=== PATIENT | female | born 1990 | race Caucasian/White ===

== ENCOUNTER 2019-10-31 04:59 | Emergency (ER) | payer BC ==
[2019-10-31] MEDS ORDERED: Sodium Chloride 0.9% 1,000 ML IV ONE (05:27)
--- NOTE | 2019-10-31 05:34 | EDM.PDOC ---
<Mohan Moran - Last Filed: 10/31/19 06:33> ED HPI GENERAL MEDICAL PROBLEM - General Chief Complaint: Abdominal Pain Stated Complaint: LOWER ABD PAIN Time Seen by Provider: 10/31/19 05:23 Source of Information: Reports: Patient History Limitations: Reports: No Limitations - History of Present Illness INITIAL COMMENTS - FREE TEXT/NARRATIVE: This is a 29-year-old female who presents to the emergency room with a chief complaint of right-sided abdominal pain and flank tenderness. Patient states she has had this for 2 days. Patient also complains of nausea vomiting diarrhea Duration: Day(s):, Intermittent Location: Reports: Abdomen Severity: Moderate Improves with: Reports: None Worsens with: Reports: None Context: Reports: Activity Associated Symptoms: Reports: Nausea/Vomiting Lower Abdomen Pain Score (Numeric/FACES): 6 - Related Data Allergies Allergy/AdvReac Type Severity Reaction Status Date / Time barley Allergy Hives Uncoded 10/31/19 05:17 Home Meds: Home Meds Multivitamin [Multivitamins] 1 each PO DAILY 08/23/15 [History] Albuterol Sulfate [Proair Hfa] 8.5 gm IH DAILY PRN 10/05/15 [History] Antiety 10/31/19 [History] Dicyclomine [Bentyl] 20 mg PO Q6H PRN #20 cap 10/31/19 [Rx] Past Medical History - Past Health History Medical/Surgical History: Denies Medical/Surgical History HEENT History: Reports: Impaired Vision Other HEENT History: glasses Respiratory History: Reports: Asthma Other Respiratory History: pneumonia Gastrointestinal History: Reports: Irritable Bowel Syndrome Musculoskeletal History: Reports: Other (See Below) Other Musculoskeletal History: left shoulder injury 2 yrs ago - Infectious Disease History Infectious Disease History: Reports: Measles - Past Surgical History HEENT Surgical History: Reports: Oral Surgery GI Surgical History: Reports: Cholecystectomy Social & Family History - Family History Family Medical History: Noncontributory Cardiac: Reports: Hypertension, PA Respiratory: Reports: Asthma GI: Reports: Other (See Below) Other GI Family History: chrons Neurological: Reports: CVA Psychiatric: Reports: Other (See Below) Other Psychiatric Family History: etoh and drug abuse - Tobacco Use Smoking Status *Q: Never Smoker Second Hand Smoke Exposure: No - Recreational Drug Use Recreational Drug Use: No ED ROS GENERAL - Review of Systems Review Of Systems: Comprehensive ROS is negative, except as noted in HPI. Constitutional: Reports: No Symptoms HEENT: Reports: No Symptoms Respiratory: Reports: No Symptoms Cardiovascular: Reports: No Symptoms Endocrine: Reports: No Symptoms GI/Abdominal: Reports: Abdominal Pain : Reports: Flank Pain Musculoskeletal: Reports: No Symptoms Skin: Reports: No Symptoms Neurological: Reports: No Symptoms Psychiatric: Reports: No Symptoms Hematologic/Lymphatic: Reports: No Symptoms Immunologic: Reports: No Symptoms ED EXAM, GI/ABD - Physical Exam Exam: See Below Text/Narrative:: This is a 29-year-old female who appears younger than stated age presenting to the emergency room with right-sided flank tenderness and some hematuria. Patient states she is also had diarrhea for the past 2 days. Patient denies chills fever, nausea and vomiting. Patient does not believe she is at this time. Labs revealed patient has a negative test and a large amount of blood in her urine. This time pending CT scan of the abdomen and pelvis to rule out a kidney stone. Patient has been hydrated and has been given pain medicine. Exam Limited By: No Limitations General Appearance: Alert, WD/WN, No Apparent Distress Eyes: Bilateral: Normal Appearance Ears: Normal External Exam, Normal Canal, Hearing Grossly Normal, Normal TMs Nose: Normal Inspection, Normal Mucosa, No Blood Throat/Mouth: Normal Inspection, Normal Lips, Normal Teeth, Normal Gums Head: Atraumatic, Normocephalic Neck: Normal Inspection, Supple, Non-Tender, Full Range of Motion Respiratory/Chest: No Respiratory Distress, Lungs Clear, Normal Breath Sounds, No Accessory Muscle Use, Chest Non-Tender Cardiovascular: Normal Peripheral Pulses, Regular Rate, Rhythm, No Edema, No Gallop, No JVD GI/Abdominal Exam: Normal Bowel Sounds, Soft, Non-Tender Rectal (Female) Exam: Deferred Back Exam: Normal Inspection, Full Range of Motion, CVA Tenderness (R) Extremities: Normal Inspection, Normal Range of Motion, Non-Tender, No Pedal Edema, Normal Capillary Refill Neurological: Alert, Oriented, CN II-XII Intact, Normal Cognition, No Motor/ Sensory Deficits Psychiatric: Normal Affect, Normal Mood Skin Exam: Warm, Dry, Intact, Normal Color, No Rash Course - Vital Signs Last Recorded V/S: Last Vital Signs Temp 36.3 C 10/31/19 05:01 Pulse 64 10/31/19 05:01 Resp 16 10/31/19 05:01 BP 110/63 10/31/19 05:01 Pulse Ox 98 10/31/19 05:01 - Orders/Labs/Meds Labs: Laboratory Tests 10/31/19 10/31/19 10/31/19 Range/Units 05:10 05:10 05:20 WBC 7.30 (4.0-11.0) K/uL RBC 5.00 (4.30-5.90) M/uL Hgb 15.6 (12.0-16.0) g/dL Hct 44.9 (36.0-46.0) % MCV 89.8 (80.0-98.0) fL MCH 31.2 (27.0-32.0) pg MCHC 34.7 (31.0-37.0) g/dL RDW Std Deviation 40.6 (28.0-62.0) fl RDW Coeff of Jessi 13 (11.0-15.0) % Plt Count 284 (150-400) K/uL MPV 11.40 (7.40-12.00) fL Neut % (Auto) 60.4 (48.0-80.0) % Lymph % (Auto) 24.1 (16.0-40.0) % [place] % (Auto) 12.7 (0.0-15.0) % Eos % (Auto) 2.3 (0.0-7.0) % Baso % (Auto) 0.5 (0.0-1.5) % Neut # (Auto) 4.4 (1.4-5.7) K/uL Lymph # (Auto) 1.8 (0.6-2.4) K/uL [place] # (Auto) 0.9 H (0.0-0.8) K/uL Eos # (Auto) 0.2 (0.0-0.7) K/uL Baso # (Auto) 0.0 (0.0-0.1) K/uL Nucleated RBC % 0.0 /100WBC Nucleated RBCs # 0 K/uL Sodium (136-145) mmol/L Potassium (3.5-5.1) mmol/L Chloride (98-107) mmol/L Carbon Dioxide (21.0-32.0) mmol/L BUN (7.0-18.0) mg/dL Creatinine (0.6-1.0) mg/dL Est Cr Clr Drug Dosing mL/min Estimated GFR (MDRD) ml/min Glucose (74-106) mg/dL Calcium (8.5-10.1) mg/dL Total Bilirubin (0.2-1.0) mg/dL AST (15-37) IU/L ALT (14-63) IU/L Alkaline Phosphatase (46-116) U/L Total Protein (6.4-8.2) g/dL Albumin (3.4-5.0) g/dL Globulin (2.6-4.0) g/dL Albumin/Globulin Ratio (0.9-1.6) Urine Color YELLOW Urine Appearance CLEAR Urine pH 5.5 (5.0-8.0) Ur Specific Island 1.010 (1.001-1.035) Urine Protein NEGATIVE (NEGATIVE) mg/dL Urine Glucose (UA) NEGATIVE (NEGATIVE) mg/dL Urine Ketones NEGATIVE (NEGATIVE) mg/dL Urine Occult Blood LARGE H (NEGATIVE) Urine Nitrite NEGATIVE (NEGATIVE) Urine Bilirubin NEGATIVE (NEGATIVE) Urine Urobilinogen 0.2 (<2.0) EU/dL Ur Leukocyte Esterase NEGATIVE (NEGATIVE) Urine RBC 0-1 (0-2/HPF) Urine WBC 0-1 (0-5/HPF) Ur Epithelial Cells FEW (NONE-FEW) Urine Bacteria FEW (NEGATIVE) Urine Mucus LIGHT (NONE-MOD) Urine HCG, Qual NEGATIVE (NEGATIVE) 10/31/19 Range/Units 05:20 WBC (4.0-11.0) K/uL RBC (4.30-5.90) M/uL Hgb (12.0-16.0) g/dL Hct (36.0-46.0) % MCV (80.0-98.0) fL MCH (27.0-32.0) pg MCHC (31.0-37.0) g/dL RDW Std Deviation (28.0-62.0) fl RDW Coeff of Jessi (11.0-15.0) % Plt Count (150-400) K/uL MPV (7.40-12.00) fL Neut % (Auto) (48.0-80.0) % Lymph % (Auto) (16.0-40.0) % [place] % (Auto) (0.0-15.0) % Eos % (Auto) (0.0-7.0) % Baso % (Auto) (0.0-1.5) % Neut # (Auto) (1.4-5.7) K/uL Lymph # (Auto) (0.6-2.4) K/uL [place] # (Auto) (0.0-0.8) K/uL Eos # (Auto) (0.0-0.7) K/uL Baso # (Auto) (0.0-0.1) K/uL Nucleated RBC % /100WBC Nucleated RBCs # K/uL Sodium 139 (136-145) mmol/L Potassium 4.6 (3.5-5.1) mmol/L Chloride 104 (98-107) mmol/L Carbon Dioxide 26.0 (21.0-32.0) mmol/L BUN 9 (7.0-18.0) mg/dL Creatinine 0.7 (0.6-1.0) mg/dL Est Cr Clr Drug Dosing 83.64 mL/min Estimated GFR (MDRD) > 60.0 ml/min Glucose 94 (74-106) mg/dL Calcium 8.8 (8.5-10.1) mg/dL Total Bilirubin 0.4 (0.2-1.0) mg/dL AST 26 (15-37) IU/L ALT 22 (14-63) IU/L Alkaline Phosphatase 72 (46-116) U/L Total Protein 8.2 (6.4-8.2) g/dL Albumin 4.3 (3.4-5.0) g/dL Globulin 3.9 (2.6-4.0) g/dL Albumin/Globulin Ratio 1.1 (0.9-1.6) Urine Color Urine Appearance Urine pH (5.0-8.0) Ur Specific Island (1.001-1.035) Urine Protein (NEGATIVE) mg/dL Urine Glucose (UA) (NEGATIVE) mg/dL Urine Ketones (NEGATIVE) mg/dL Urine Occult Blood (NEGATIVE) Urine Nitrite (NEGATIVE) Urine Bilirubin (NEGATIVE) Urine Urobilinogen (<2.0) EU/dL Ur Leukocyte Esterase (NEGATIVE) Urine RBC (0-2/HPF) Urine WBC (0-5/HPF) Ur Epithelial Cells (NONE-FEW) Urine Bacteria (NEGATIVE) Urine Mucus (NONE-MOD) Urine HCG, Qual (NEGATIVE) Meds: Medications Discontinued Medications Generic Name Dose Route Start Last Admin Trade Name Freq PRN Reason Stop Dose Admin Sodium Chloride 1,000 mls @ 1,000 mls/hr 10/31/19 05:27 10/31/19 05:40 Normal Saline IV 10/31/19 06:26 1,000 mls/hr .Bolus ONE Administration Ketorolac Tromethamine 30 mg 10/31/19 06:32 10/31/19 07:09 Toradol IVPUSH 10/31/19 06:33 30 mg ONETIME ONE Administration Departure - Departure Disposition: Home, Self-Care 01 Clinical Impression: Abdominal pain - Discharge Information Prescriptions: Dicyclomine [Bentyl] 20 mg PO Q6H PRN #20 cap PRN Reason: Abdominal Pain Referrals: Adelina Us DO [Primary Care Provider] - Forms: ED Department Discharge Sepsis Event Note - Evaluation Sepsis Screening Result: No Definite Risk - Focused Exam Vital Signs: Vital Signs Temp Pulse Resp BP Pulse Ox 10/31/19 05:01 36.3 C 64 16 110/63 98 Date Exam was Performed: 10/31/19 Time Exam was Performed: 06:33 <Lavelle Jara - Last Filed: 10/31/19 07:52> ED ROS GENERAL - Review of Systems Review Of Systems: See Below ED EXAM, GI/ABD - Physical Exam Exam: See Below Course - Re-Assessments/Exams Free Text/Narrative Re-Assessment/Exam: 10/31/19 07:51 Emergency Medicine Physician Handoff Note Verbal report from Dr. Moran at 7:00 AM, 10/31/2019. Summary: 29-year-old obese female with history of asthma, and? Ureterolithiasis presents for evaluation of right sided abdominal pain, nausea, vomiting, and diarrhea for 2 days. Vitals and completed studies were jointly reviewed, these are notable for: HR 64, RR 16, BP 110/63, T 36.3C, SaO2 90% on room air. 1 L NS and 30 mg Toradol given for initial symptom management. WBC 7.3, HB 15.6, sodium 139, potassium 4.6, AST 26, ALT 22, total bilirubin 0.4, ALP 72. UA - large occult blood, negative nitrate, negative leukocyte esterase, few bacteria. HCG negative. Pending: CT abdomen/pelvis. Anticipated disposition: Evaluation: I independently reviewed the prior provider's chart, nursing and triage note(s) , vitals - and when available - labs, EKGs, and imaging studies. 07:16 - patient resting comfortably, repeat history notable for: 29-year-old obese female with a prior cholecystectomy presents with 2 days of poorly characterized crampy predominantly right-sided abdominal pain waxes and wanes, reoccurred at 3 AM this morning that woke her up with pain causing her to cry she then presented for evaluation in the emergency department. Patient endorsed infrequent nausea over the last few days, denied vomiting, and notes that she has in frequent loose stools c/w her IBS. No fevers, chills, dysuria. Currently menstruating. Abdominal exam without tenderness palpation throughout all quadrants, negative Hope sign, no focal tenderness palpation of McBurneys point. CT abdomen/pelvis: Unremarkable non-contrast CT exam. No evidence of renal or ureteral calculus. No evidence of obstructive hyrodronephrosis or inflammatory stranding about either kidney. Summary: no clear evidence of acute intrabdominal genitourinary process. Imagery is believed to be 2/2 the patients menses given the absence of further urinary symptoms, negative nitrate, negative leukocyte esterase as well as few bacteria. Disposition: discharge with PCP follow-up recommended. RX for Bentyl provided. Work note provided as requested by patient. Impression: abdominal pain. Departure - Departure Time of Disposition: 07:50 Sepsis Event Note - Focused Exam Date Exam was Performed: 10/31/19 Time Exam was Performed: 07:50
[2019-10-31 05:51] LABS: BLOOD UREA NITROGEN,BUN 9 mg/dL (7.0-18.0); CHLORIDE,CL 104 mmol/L (98-107); GLUCOSE RANDOM 94 mg/dL (74-106); POTASSIUM,K 4.6 mmol/L (3.5-5.1); SODIUM,NA 139 mmol/L (136-145)
[2019-10-31] MEDS ORDERED: Ketorolac 30 MG/ML SDV IVPUSH ONE (06:32)
--- NOTE | 2019-10-31 07:42 | CT ---
INDICATION: Right flank pain. Hematuria. TECHNIQUE: A CT volumetric acquisition was performed of the abdomen and pelvis without IV contrast. FINDINGS: The lung bases are clear. The unenhanced liver and spleen demonstrate normal size in uniform density. There is no evidence of inflammation within the pancreas. The gallbladder has been resected. The bile ducts are normal in size. The adrenal glands have normal morphology. The kidneys are symmetric in size and there is no evidence of edema, hydronephrosis or perinephric fluid stranding. The abdominal aorta appears normal. The patient has an anatomic variation with a left-sided IVC. The small intestine and colon appear normal. The uterus and ovaries are normal size. The urinary bladder appears normal. IMPRESSION: Unremarkable noncontrast CT exam. No evidence of renal or ureteral calculus. No evidence of obstructive hydronephrosis or inflammatory stranding about either kidney. Please note that all CT scans at this facility use dose modulation, iterative reconstruction, and/or weight-based dosing when appropriate to reduce radiation dose to as low as reasonably achievable. Dictated by Don Murguia MD @ Oct 31 2019 7:36AM Signed by Dr. Don Murguia @ Oct 31 2019 7:40AM
[2019-10-31 08:23] VITALS: BP 114/69; PULSE 60
== END 2019-10-31 08:10 | disposition home or self-care (01) ==
LOC: MW.ED 04:59
DX: R10.9 Unspecified abdominal pain (principal); I10 Essential (primary) hypertension; I25.2 Old myocardial infarction; J45.909 Unspecified asthma, uncomplicated; Z86.73 Personal history of transient ischemic attack (TIA), and cerebral infarction without residual deficits
CPT/HCPCS: 36415; 74176; 80053; 81001; 81025; 85025; 96361; 96374; 99284; J1885; J7030

== ENCOUNTER 2020-07-09 07:47 | Day surgery (SDC) | payer BC ==
[~2020-07-09 07:47] MED LIST: Lactated Ringers 1,000 ML IV SCH; Lidocaine 2% 5 ML SDV ONE; Midazolam 1 MG/ML 2 ML SDV ONE; Propofol 200 MG/20 ML SDV ONE; fentaNYL 100 MCG/2 ML SDV ONE
--- NOTE | 2020-07-09 08:52 | PCM.PREANE ---
Preanesthetic Assessment - Anesthesia/Transfusion/Family Hx Anesthesia History: Prior Anesthesia Without Reaction Other Type of Anesthesia Reaction Comment: "mother almost during surgery, not sure why" Family History of Anesthesia Reaction: No Transfusion History: No Prior Transfusion(s) Intubation History: Unknown - Review of Systems General: No Symptoms Pulmonary: No Symptoms Cardiovascular: No Symptoms Gastrointestinal: Abdominal Pain, Hematochezia Neurological: No Symptoms Other: Reports: None - Physical Assessment Height: 4 ft 11 in Weight: 69.853 kg ASA Class: 2 Mental Status: Alert & Oriented x3 Airway Class: Mallampati = 2 Dentition: Reports: Normal Dentition Thyro-Mental Finger Breadths: 3 Mouth Opening Finger Breadths: 3 ROM/Head Extension: Full Lungs: Clear to Auscultation, Normal Respiratory Effort Cardiovascular: Regular Rate, Regular Rhythm - Allergies Allergies/Adverse Reactions: Allergies Allergy/AdvReac Type Severity Reaction Status Date / Time animal dander Allergy Hives Verified 07/03/20 08:29 barley Allergy Hives Verified 07/03/20 08:29 - Blood Blood Available: No - Anesthesia Plan Pre-Op Medication Ordered: None - Acknowledgements Anesthesia Type Planned: MAC Pt an Appropriate Candidate for the Planned Anesthesia: Yes Alternatives and Risks of Anesthesia Discussed w Pt/Guardian: Yes Pt/Guardian Understands and Agrees with Anesthesia Plan: Yes PreAnesthesia Questionnaire - Past Health History Medical/Surgical History: Denies Medical/Surgical History HEENT History: Reports: Impaired Vision, Other (See Below) Other HEENT History: glasses, lower dental retainer Cardiovascular History: Reports: None Respiratory History: Reports: Asthma (visited ER 4 times since september due to exacerbation of asthma, received corticosteroids) Gastrointestinal History: Reports: GERD, Irritable Bowel Syndrome Genitourinary History: Reports: None Musculoskeletal History: Reports: Other (See Below) Other Musculoskeletal History: myofascial pain syndrome, left shoulder pain Neurological History: Reports: Other (See Below) Other Neuro History: 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 Psychiatric History: Reports: Anxiety, Depression Endocrine/Metabolic History: Reports: Obesity/BMI 30+ (BMI 31.1) Hematologic History: Reports: None, Other (See Below) (h/o anemia) Immunologic History: Reports: None Oncologic (Cancer) History: Reports: None Dermatologic History: Reports: None - Infectious Disease History Infectious Disease History: Reports: Measles - Past Surgical History Head Surgeries/Procedures: Reports: None HEENT Surgical History: Reports: Oral Surgery Cardiovascular Surgical History: Reports: None Respiratory Surgical History: Reports: None GI Surgical History: Reports: Cholecystectomy Female Surgical History: Reports: None Endocrine Surgical History: Reports: None Neurological Surgical History: Reports: None Musculoskeletal Surgical History: Reports: None Oncologic Surgical History: Reports: None Dermatological Surgical History: Reports: None - SUBSTANCE USE Smoking Status *Q: Never Smoker Recreational Drug Use History: No - HOME MEDS Home Medications: Home Meds Albuterol Sulfate [Proair Hfa] 1 puff INH ASDIRECTED PRN 10/05/15 [History] Budesonide/Formoterol Fumarate [Symbicort 80-4.5 MCG] 1 inhalation INH ASDIRECTED PRN 07/03/20 [History] Diclofenac Sodium 1 applic TOP ASDIRECTED PRN 07/03/20 [History] Gabapentin [Neurontin] 300 mg PO TID 07/03/20 [History] Ipratropium/Albuterol Sulfate [Iprat-Albut 0.5-3(2.5) mg/3 ml] 1 inhalation NEB ASDIRECTED PRN 07/03/20 [History] Lidocaine/Prilocaine [Lidocaine-Prilocaine Cream] 1 applic TOP ASDIRECTED PRN 07/03/20 [History] Magnesium Oxide [Magnesium] 2 tab.chew CHEW DAILY 07/03/20 [History] [place]-3/DHA/Epa/Fish Oil [Fish Oil 1,000 mg Softgel] 1,000 mg PO DAILY 07/03/20 [History] Pnv No.95/Ferrous Fum/Folic AC [ Vitamin Tablet] 1 tab PO DAILY 07/03/20 [History] Vitamin B Complex 1 tab PO DAILY 07/03/20 [History] hydrOXYzine HCL [Hydroxyzine HCl] 25 mg PO QID PRN 07/03/20 [History] - CURRENT (IN HOUSE) MEDS Current Meds: Current Medications Lactated Ringer's (Ringers, Lactated) 1,000 mls @ 125 mls/hr IV ASDIRECTED RISHI Discontinued Medications Fentanyl (Sublimaze) Confirm Administered Dose 100 mcg .ROUTE .STK-MED ONE Stop: 07/09/20 07:13 Lidocaine (Xylocaine-Mpf 2%) Confirm Administered Dose 5 ml .ROUTE .STK-MED ONE Stop: 07/09/20 07:13 Midazolam HCl (Versed 1 Mg/Ml) Confirm Administered Dose 2 mg .ROUTE .STK-MED ONE Stop: 07/09/20 07:13 Propofol (Diprivan 20 Ml) Confirm Administered Dose 400 mg .ROUTE .STK-MED ONE Stop: 07/09/20 07:13
[2020-07-09] MEDS ORDERED: Albuterol/Ipratropium 3.0-0.5 MG/3 ML Neb Soln ONE (08:54)
[2020-07-09] MEDS ORDERED: Albuterol/Ipratropium 3.0-0.5 MG/3 ML Neb Soln NEB ONE (08:55)
[2020-07-09] MEDS ORDERED: Propofol 200 MG/20 ML SDV ONE (09:32)
--- NOTE | 2020-07-09 09:54 | PCM.OPNOTE ---
- General Post-Op/Procedure Note Date of Surgery/Procedure: 07/09/20 Operative Procedure(s): egd w bx. colonoscopy w bx Findings: see [id number] Pre Op Diagnosis: abd pain and black tarry stool Post-Op Diagnosis: Same Anesthesia Technique: Moderate Sedation Primary Surgeon: Rolando Jimenez Pathology: egd bx colon random bx Complications: None Condition: Good
[2020-07-09 10:07] VITALS: BP 97/56
--- NOTE | 2020-07-09 10:13 | PCM.POSTAN ---
POST ANESTHESIA ASSESSMENT - MENTAL STATUS Mental Status: Alert, Oriented - VITAL SIGNS Vital Signs: Last Vital Signs Temp 86 C H 07/09/20 09:45 Pulse 82 07/09/20 10:05 Resp 12 07/09/20 10:05 BP 97/56 L 07/09/20 10:05 Pulse Ox 98 07/09/20 10:05 - RESPIRATORY Respiratory Status: Respiratory Rate WNL, Airway Patent, O2 Saturation Stable - CARDIOVASCULAR CV Status: Pulse Rate WNL, Blood Pressure Stable - GASTROINTESTINAL GI Status: No Symptoms - PAIN Pain Score: 0 - POST OP HYDRATION Hydration Status: Adequate & Stable - OBSERVATIONS Free Text/Narrative:: No anesthesia problems
--- NOTE | 2020-07-09 10:57 | PCM48HPAN ---
Post Anesthesia Note - EVALUATION WITHIN 48HRS OF ANESTHETIC Vital Signs in Normal Range: Yes Patient Participated in Evaluation: Yes Respiratory Function Stable: Yes Airway Patent: Yes Cardiovascular Function Stable: Yes Hydration Status Stable: Yes Pain Control Satisfactory: Yes Nausea and Vomiting Control Satisfactory: Yes Mental Status Recovered: Yes Vital Signs: Last Vital Signs Temp 86 C H 07/09/20 09:45 Pulse 82 07/09/20 10:05 Resp 12 07/09/20 10:05 BP 97/56 L 07/09/20 10:05 Pulse Ox 98 07/09/20 10:05 - COMMENTS/OBSERVATIONS Free Text/Narrative:: No anesthesia problems
--- NOTE | 2020-07-09 12:10 | OR ---
SURGEON: Rolando Jimenez MD DATE OF PROCEDURE: 07/09/2020 PREOPERATIVE DIAGNOSES: Abdominal pain and black tarry stool. PROCEDURES PERFORMED: Esophagogastroduodenoscopy with biopsy and colonoscopy with random biopsy. DESCRIPTION OF PROCEDURE: EGD: The patient was taken to the endoscopy room, and with the SET UP ME[employer]SEM[employer] MACHINE, Diprivan was administered. A well-lubricated EGD scope was gently inserted through the oropharynx, down the esophagus, passing through the gastroesophageal junction, into the stomach. The mucosa was examined upon the passage. Any etiology will be noted. Once in the stomach, we continued to advance to the distal antrum, passed through the pylorus into the second portion of the duodenum. Again, the mucosa was examined for any abnormality and etiology. The scope was then retrieved back to the stomach and then retroflexed to look at the fundus of the stomach. If a biopsy was indicated, we will biopsy the antrum, body, and gastroesophageal junction. The air will be sucked out while the scope is retrieved to reduce the patient's discomfort. The patient tolerated the procedure well. There were no intraoperative complications. Dr. Jimenez was present through the whole procedure. Prior to surgery, a time-out had been called, the patient identified, procedure identified and antibiotic administered. The patient was taken to the endoscopy room. A time out was called, patient identified, and procedure identified. Diprivan was then administrated. Patient went from awake to sleep, hearing doctor talking or door closing is normal. Perineum inspection and digital examination were then performed. A well- lubricated colonoscope was gently inserted through the rectum, advanced past the rectosigmoid junction, the descending colon, splenic flexure, transverse colon, hepatic flexure, ascending colon, arrived to the cecum. Cecum was identified as dictated in the finding. Then the scope was carefully withdrawn while attention was paid to the mucosal surface for any abnormality. Air will be sucked out during the scope withdrawal. At the rectum, retroflexed to examine any rectal diseases, fistula or hemorrhoids. During mucosal examination, abnormality or polyp was noted; picture taken and biopsy performed. Patient tolerated procedure well. There were no intraoperative complications, and Dr. Jimenez was present throughout the whole procedure. FINDINGS: EGD findings: 1. The patient is easily sedated with [employer] MACHINE and Diprivan, the patient is soundly snoring. 2. The patient's oropharynx and proximal esophagus are free of disease, stricture, or inflammation. Distal esophagus at GE junction at 40 shows moderate amount of salmon-colored change, consistent with acid reflux. The stomach rugae are normal in appearance. Antrum looks fine and duodenum looks grossly normal. Retroflexed look at the fundus of stomach, there is no hiatal hernia. Biopsy done at antrum, body, GE junction at 40 and sucked out the gas while scope pulling out. During the whole study, there is no blood, ulcer, food particle, or bile observed. Colonoscopy findings: 1. The patient is easily sedated with SET [employer] MACHINE and Diprivan, the patient is soundly snoring. 2. Bowel prep is excellent with very little liquid stool, no semi-formed stool. 3. Colon is rather straightforward. Cecum indicated by ileocecal fold, one-to- one indentation, appendiceal orifice. ScopeGuide is pointing south. Light emittance is not observed. Mucosa examined upon scope pulling out. The patient does not have diverticulosis, polyp, mass, growth, inflammation, stricture, AV malformation, bleeding, none of those. Random biopsy was done and this patient carries a diagnosis of IBD, inflammatory bowel disease. The patient has mild external hemorrhoids, no internal hemorrhoids. The patient would benefit from repeat colonoscopy on an as- needed basis or clinically indicated otherwise. CHRISTO / SERG /[id number]
[2020-07-09 12:37] VITALS: PULSE 78
== END 2020-07-09 11:25 | disposition home or self-care (01) ==
LOC: MW.SDS 07:47
PROVIDERS: ATTEND Surgery
DX: K58.9 Irritable bowel syndrome, unspecified (principal); K20.9 Esophagitis, unspecified; K64.4 Residual hemorrhoidal skin tags; J45.909 Unspecified asthma, uncomplicated; E66.9 Obesity, unspecified; Z91.018 Allergy to other foods; Z91.09 Other allergy status, other than to drugs and biological substances; Z79.899 Other long term (current) drug therapy; Z90.49 Acquired absence of other specified parts of digestive tract; Z68.31 Body mass index [BMI] 31.0-31.9, adult
CPT/HCPCS: 43239; 45380; 94640; J2001; J2250; J2704; J3010; J7120; J7620-GY

== ENCOUNTER 2020-07-13 15:32 | Emergency (ER) | payer BC ==
[2020-07-13] MEDS ORDERED: Sodium Chloride 0.9% 1,000 ML IV ONE (15:49)
[2020-07-13] MEDS ORDERED: Ketorolac 30 MG/ML SDV IVPUSH ONE (15:56)
[2020-07-13] MEDS ORDERED: Ondansetron 4 MG/2 ML SDV IVPUSH ONE (15:56)
--- NOTE | 2020-07-13 15:56 | EDM.PDOC ---
ED HPI GENERAL MEDICAL PROBLEM - General Chief Complaint: Abdominal Pain Stated Complaint: ABDOMINAL PAIN Time Seen by Provider: 07/13/20 15:40 Source of Information: Reports: Patient History Limitations: Reports: No Limitations - History of Present Illness INITIAL COMMENTS - FREE TEXT/NARRATIVE: HISTORY AND PHYSICAL: History of present illness: Patient is a 30-year-old female who presents to the emergency room with complaints of lower abdominal pain, nausea and vomiting. Patient states she has chronically been having abdominal pain over the past few months but typically h ad been in the right lower quadrant. She had a CT scan of her abdomen last month which was normal and then had been referred for an endoscopy and colonoscopy. The scopes were done earlier this week, gets results on . Today she is concerned as the pain is now on the left lower quadrant and feels like she is dehydrated as she has not been able to keep any food or fluids down. Patient denies any fever, chills, headache, change in vision, syncope or near syncope. Denies any chest pain, back pain, shortness of breath or cough. Denies any abdominal pain, nausea, vomiting, diarrhea, constipation or dysuria. Has not noted any blood in urine or stool. Patient has been eating and drinking appropriately. Review of systems: As per history of present illness and below otherwise all systems reviewed and negative. Past medical history: As per history of present illness and as reviewed below otherwise noncontributory. Surgical history: As per history of present illness and as reviewed below otherwise noncontributory. Social history: See social history for further information Family history: As per history of present illness and as reviewed below otherwise noncontributory. Physical exam: General: Well developed and well nourished 30-year-old female. Alert and orientated x 3. Nontoxic in appearance and in no acute distress. Vital signs are stable and have been reviewed by me. Nursing notes were reviewed. HEENT: Atraumatic, normocephalic, pupils equal and reactive bilaterally, negative for conjunctival pallor or scleral icterus, mucous membranes moist, TMs normal bilaterally, throat clear, neck supple, nontender, trachea midline. No drooling or trismus noted. No meningeal signs. No hot potato voice noted. Lungs: Clear to auscultation, breath sounds equal bilaterally, chest nontender. Normal work of breathing, no accessory muscles used. Heart: S1S2, regular rate and rhythm without overt murmur Abdomen: Soft, nondistended, generalized tenderness in all 4 quadrants. Negative for masses or hepatosplenomegaly. Negative for costovertebral tenderness. Skin: Intact, warm, dry. No lesions or rashes noted. Hematologic: No petechiae or purpra. Mucosa appropriate color and normal nail bed color and refill. Extremities: Atraumatic, moves all extremities per self without difficulty or deficits, negative for cords or calf pain. Neurovascular unremarkable. Neuro: Awake, alert, oriented. Cranial nerves II through XII unremarkable. Cerebellum unremarkable. Motor and sensory unremarkable throughout. Exam nonfocal. Psychiatric: Mood and affect are appropriate. Normal thought process. Answering questions appropriately. Notes: CT shows a small amount of pelvic free fluid. 2.1 cm cystic structure on the right adnexa may be related to a recently ruptured cyst or follicle. No appendicitis. Otherwise unremarkable. Patient does feel improved after the fluids and medications. I have spoken with the patient/caregiver and discussed today's findings, in addition to providing specific details for plan of care. Reassessment at the time of disposition demonstrates that the patient is in no acute distress. The patient has remained stable throughout the entire ED visit and is without objective evidence for acute process requiring urgent intervention or hospitalization. The patient is stable for discharge, counseling was provided as , and we discussed in great detail signs and symptoms that would prompt them to return to the Emergency Department. Medication, follow up and supportive care measures were reviewed and discussed. Voices understanding and is agreeable to plan of care. Denies any further questions or concerns at this time. Diagnostics: CBC, CMP, UA, urine , lipase Therapeutics: IV fluids, Toradol, Zofran Prescription: Zofran Impression: Abdominal Pain Plan: 1. Today your lab work is unremarkable. There is the 2.1 cm cyst on the right which may have ruptured. Just continue to monitor your symptoms this should require no further management unless it continues to be problem some. 2. Alternate Tylenol and ibuprofen as needed for pain management. You can use Zofran as needed for nausea. 3. We encourage you to follow up with your primary care provider and/or recommended specialist in the next few days for re-evaluation and further care/management. If your symptoms should worsen, new symptoms develop or any of the signs and symptoms we discussed should arise please return to the emergency room or call 911 (if needed). Definitive disposition and diagnosis as appropriate pending reevaluation and review of above. Lower abdomen Pain Score (Numeric/FACES): 7 - Related Data Allergies Allergy/AdvReac Type Severity Reaction Status Date / Time animal dander Allergy Hives Verified 07/13/20 15:50 barley Allergy Hives Verified 07/13/20 15:50 Home Meds: Home Meds Albuterol Sulfate [Proair Hfa] 1 puff INH ASDIRECTED PRN 10/05/15 [History] Ipratropium/Albuterol Sulfate [Iprat-Albut 0.5-3(2.5) mg/3 ml] 1 inhalation NEB ASDIRECTED PRN 07/03/20 [History] Ondansetron [Zofran ODT] 4 mg PO Q6H PRN #8 tab.dis 07/13/20 [Rx] Past Medical History - Past Health History Medical/Surgical History: Denies Medical/Surgical History HEENT History: Reports: Impaired Vision, Other (See Below) Other HEENT History: glasses, lower dental retainer Cardiovascular History: Reports: None Respiratory History: Reports: Asthma Gastrointestinal History: Reports: GERD, Irritable Bowel Syndrome Other Gastrointestinal History: EGD and colonscopy Genitourinary History: Reports: None Musculoskeletal History: Reports: Other (See Below) Other Musculoskeletal History: left shoulder pain Neurological History: Reports: Other (See Below) Other Neuro History: 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 Psychiatric History: Reports: Anxiety, Depression Endocrine/Metabolic History: Reports: Obesity/BMI 30+ Hematologic History: Reports: None, Other (See Below) Immunologic History: Reports: None Oncologic (Cancer) History: Reports: None Dermatologic History: Reports: None - Infectious Disease History Infectious Disease History: Reports: Measles - Past Surgical History Head Surgeries/Procedures: Reports: None HEENT Surgical History: Reports: Oral Surgery Cardiovascular Surgical History: Reports: None Respiratory Surgical History: Reports: None GI Surgical History: Reports: Cholecystectomy Female Surgical History: Reports: None Endocrine Surgical History: Reports: None Neurological Surgical History: Reports: None Musculoskeletal Surgical History: Reports: None Oncologic Surgical History: Reports: None Dermatological Surgical History: Reports: None Social & Family History - Family History Family Medical History: Noncontributory Cardiac: Reports: Hypertension, [place] Respiratory: Reports: Asthma GI: Reports: Other (See Below) Other GI Family History: chrons Neurological: Reports: CVA Psychiatric: Reports: Other (See Below) Other Psychiatric Family History: etoh and drug abuse - Caffeine Use Caffeine Use: Reports: None - Recreational Drug Use Recreational Drug Use: No ED ROS GENERAL - Review of Systems Review Of Systems: Comprehensive ROS is negative, except as noted in HPI. ED EXAM, GI/ABD - Physical Exam Exam: See Below (See dictation) Course - Vital Signs Last Recorded V/S: Last Vital Signs Temp 97.5 F 07/13/20 18:53 Pulse 75 07/13/20 18:53 Resp 20 07/13/20 18:53 BP 110/75 07/13/20 18:53 Pulse Ox 96 07/13/20 18:53 - Orders/Labs/Meds Labs: Laboratory Tests 07/13/20 07/13/20 07/13/20 Range/Units 15:48 15:48 15:48 WBC 13.78 H (4.0-11.0) K/uL RBC 4.74 (4.30-5.90) M/uL Hgb 14.8 (12.0-16.0) g/dL Hct 41.4 (36.0-46.0) % MCV 87.3 (80.0-98.0) fL MCH 31.2 (27.0-32.0) pg MCHC 35.7 (31.0-37.0) g/dL RDW Std Deviation 36.4 (28.0-62.0) fl RDW Coeff of Jessi 12 (11.0-15.0) % Plt Count 271 (150-400) K/uL MPV 11.40 (7.40-12.00) fL Neut % (Auto) 68.3 (48.0-80.0) % Lymph % (Auto) 17.6 (16.0-40.0) % [place] % (Auto) 13.2 (0.0-15.0) % Eos % (Auto) 0.7 (0.0-7.0) % Baso % (Auto) 0.2 (0.0-1.5) % Neut # (Auto) 9.4 H (1.4-5.7) K/uL Lymph # (Auto) 2.4 (0.6-2.4) K/uL [place] # (Auto) 1.8 H (0.0-0.8) K/uL Eos # (Auto) 0.1 (0.0-0.7) K/uL Baso # (Auto) 0.0 (0.0-0.1) K/uL Sodium (136-145) mmol/L Potassium (3.5-5.1) mmol/L Chloride (98-107) mmol/L Carbon Dioxide (21.0-32.0) mmol/L BUN (7.0-18.0) mg/dL Creatinine (0.6-1.0) mg/dL Est Cr Clr Drug Dosing mL/min Estimated GFR (MDRD) ml/min Glucose (74-106) mg/dL Calcium (8.5-10.1) mg/dL Total Bilirubin (0.2-1.0) mg/dL AST (15-37) IU/L ALT (14-63) IU/L Alkaline Phosphatase (46-116) U/L Total Protein (6.4-8.2) g/dL Albumin (3.4-5.0) g/dL Globulin (2.6-4.0) g/dL Albumin/Globulin Ratio (0.9-1.6) Lipase (73-393) U/L Urine Color YELLOW Urine Appearance CLEAR Urine pH 5.5 (5.0-8.0) Ur Specific [place] >= 1.030 (1.001-1.035) Urine Protein NEGATIVE (NEGATIVE) mg/dL Urine Glucose (UA) NEGATIVE (NEGATIVE) mg/dL Urine Ketones TRACE H (NEGATIVE) mg/dL Urine Occult Blood NEGATIVE (NEGATIVE) Urine Nitrite NEGATIVE (NEGATIVE) Urine Bilirubin NEGATIVE (NEGATIVE) Urine Urobilinogen 0.2 (<2.0) EU/dL Ur Leukocyte Esterase NEGATIVE (NEGATIVE) Urine HCG, Qual NEGATIVE (NEGATIVE) 07/13/20 Range/Units 15:48 WBC (4.0-11.0) K/uL RBC (4.30-5.90) M/uL Hgb (12.0-16.0) g/dL Hct (36.0-46.0) % MCV (80.0-98.0) fL MCH (27.0-32.0) pg MCHC (31.0-37.0) g/dL RDW Std Deviation (28.0-62.0) fl RDW Coeff of Jessi (11.0-15.0) % Plt Count (150-400) K/uL MPV (7.40-12.00) fL Neut % (Auto) (48.0-80.0) % Lymph % (Auto) (16.0-40.0) % [place] % (Auto) (0.0-15.0) % Eos % (Auto) (0.0-7.0) % Baso % (Auto) (0.0-1.5) % Neut # (Auto) (1.4-5.7) K/uL Lymph # (Auto) (0.6-2.4) K/uL [place] # (Auto) (0.0-0.8) K/uL Eos # (Auto) (0.0-0.7) K/uL Baso # (Auto) (0.0-0.1) K/uL Sodium 138 (136-145) mmol/L Potassium 4.0 (3.5-5.1) mmol/L Chloride 103 (98-107) mmol/L Carbon Dioxide 24.4 (21.0-32.0) mmol/L BUN 11 (7.0-18.0) mg/dL Creatinine 0.8 (0.6-1.0) mg/dL Est Cr Clr Drug Dosing 72.52 mL/min Estimated GFR (MDRD) > 60.0 ml/min Glucose 89 (74-106) mg/dL Calcium 9.1 (8.5-10.1) mg/dL Total Bilirubin 0.7 (0.2-1.0) mg/dL AST 15 (15-37) IU/L ALT 22 (14-63) IU/L Alkaline Phosphatase 65 (46-116) U/L Total Protein 7.7 (6.4-8.2) g/dL Albumin 4.3 (3.4-5.0) g/dL Globulin 3.4 (2.6-4.0) g/dL Albumin/Globulin Ratio 1.3 (0.9-1.6) Lipase 76 (73-393) U/L Urine Color Urine Appearance Urine pH (5.0-8.0) Ur Specific [place] (1.001-1.035) Urine Protein (NEGATIVE) mg/dL Urine Glucose (UA) (NEGATIVE) mg/dL Urine Ketones (NEGATIVE) mg/dL Urine Occult Blood (NEGATIVE) Urine Nitrite (NEGATIVE) Urine Bilirubin (NEGATIVE) Urine Urobilinogen (<2.0) EU/dL Ur Leukocyte Esterase (NEGATIVE) Urine HCG, Qual (NEGATIVE) Meds: Medications Discontinued Medications Generic Name Dose Route Start Last Admin Trade Name Freq PRN Reason Stop Dose Admin Sodium Chloride 1,000 mls @ 999 mls/hr 07/13/20 15:49 07/13/20 15:58 Normal Saline IV 07/13/20 16:49 999 mls/hr STAT ONE Administration Iopamidol 100 ml 07/13/20 17:16 07/13/20 17:16 Isovue Multipack-370 (76%) IVPUSH 07/13/20 17:17 100 ml ONETIME ONE Administration Ketorolac Tromethamine 30 mg 07/13/20 15:56 07/13/20 15:59 Toradol IVPUSH 07/13/20 15:57 30 mg ONETIME ONE Administration Ondansetron HCl 4 mg 07/13/20 15:56 07/13/20 15:59 Zofran IVPUSH 07/13/20 15:57 4 mg ONETIME ONE Administration Departure - Departure Time of Disposition: 18:10 Disposition: Home, Self-Care 01 Clinical Impression: Abdominal pain - Discharge Information Prescriptions: Ondansetron [Zofran ODT] 4 mg PO Q6H PRN #8 tab.dis PRN Reason: Nausea Instructions: Abdominal Pain, Adult, [id number] Referrals: Adelina Us DO [Primary Care Provider] - Forms: ED Department Discharge Additional Instructions: The following information is given to patients seen in the emergency department who are being discharged to home. This information is to outline your options for follow-up care. We provide all patients seen in our emergency department with a follow-up referral. The need for follow-up, as well as the timing and circumstances, are variable depending upon the specifics of your emergency department visit. If you don't have a primary care physician on staff, we will provide you with a referral. We always advise you to contact your personal physician following an emergency department visit to inform them of the circumstance of the visit and for follow-up with them and/or the need for any referrals to a consulting specialist. The emergency department will also refer you to a specialist when appropriate. This referral assures that you have the opportunity for follow-up care with a specialist. All of these measure are taken in an effort to provide you with optimal care, which includes your follow-up. Under all circumstances we always encourage you to contact your private physician who remains a resource for coordinating your care. When calling for follow-up care, please make the office aware that this follow-up is from your recent emergency room visit. If for any reason you are refused follow-up, please contact the [facility] Emergency Department at and asked to speak to the emergency department charge nurse. [facility] [address] [place] [id number] [place] [address] Thank you for choosing the [facility] emergency department in [place] for your medical needs today. It was a pleasure caring for you. Today you were seen in the emergency department for abdominal pain 1. Today your lab work is unremarkable. There is the 2.1 cm cyst on the right which may have ruptured. Just continue to monitor your symptoms this should require no further management unless it continues to be problem some. 2. Alternate Tylenol and ibuprofen as needed for pain management. You can use Zofran as needed for nausea. 3. We encourage you to follow up with your primary care provider and/or recommended specialist in the next few days for re-evaluation and further care/management. If your symptoms should worsen, new symptoms develop or any of the signs and symptoms we discussed should arise please return to the emergency room or call 911 (if needed). Sepsis Event Note (ED) - Evaluation Sepsis Screening Result: No Definite Risk - Focused Exam Vital Signs: Vital Signs Temp Pulse Resp BP Pulse Ox 07/13/20 18:53 97.5 F 75 20 110/75 96 07/13/20 15:43 98.2 F 84 20 117/59 L 97
[2020-07-13 16:17] LABS: BLOOD UREA NITROGEN,BUN 11 mg/dL (7.0-18.0); CARBON DIOXIDE,CO2 24.4 mmol/L (21.0-32.0); CHLORIDE,CL 103 mmol/L (98-107); GLUCOSE RANDOM 89 mg/dL (74-106); LIPASE 76 U/L (73-393); SODIUM,NA 138 mmol/L (136-145)
[2020-07-13] MEDS ORDERED: Iopamidol 755 MG/ML 500 ML Multipack Bottle IVPUSH ONE (17:16)
--- NOTE | 2020-07-13 18:04 | CT ---
INDICATION: Abdominal pain. TECHNIQUE: Intravenous contrast enhanced CT of the abdomen and pelvis. 100 ml of Isovue 370 intravenous contrast administered. Oral contrast was also administered. COMPARISON: 06/13/2020. FINDINGS: Area of low-attenuation within the medial segment of the left hepatic close to the falciform ligament is favored to relate to an area of focal fatty infiltration. Patient is status post cholecystectomy. No biliary ductal dilatation. Spleen is normal. Adrenal glands are normal. No pancreatic mass, ductal dilatation or acute peripancreatic inflammatory changes. Symmetric nephrograms. No renal mass. No hydronephrosis or obstructive urinary calculus. - No small bowel obstruction. No appendicitis. No diverticulitis or definite colitis. - Small amount of pelvic free fluid. 2.1 cm peripherally enhancing cystic structure within the right adnexa may relate to a recently ruptured cyst or follicle. No adenopathy. No abdominal aortic aneurysm. - No acute fractures. - No infiltrate within the lung bases, nor pleural effusion. IMPRESSION: 1. Small amount of pelvic free fluid. 2. 2.1 cm peripherally enhancing cystic structure within the right adnexa may relate to a recently ruptured cyst or follicle. 3. No appendicitis. 4. Area of low-attenuation within the medial segment of the left hepatic lobe favored to relate to focal fatty infiltration. Dictated by Varun Ndiaye MD @ 07/13/2020 6:02:44 PM Please note that all CT scans at this facility use dose modulation, iterative reconstruction, and/or weight-based dosing when appropriate to reduce radiation dose to as low as reasonably achievable. Dictated by: Varun Ndiaye MD @ 07/13/2020 18:02:54 (Electronically Signed)
[2020-07-13 18:56] VITALS: BP 110/75; PULSE 75
== END 2020-07-13 18:53 | disposition home or self-care (01) ==
LOC: MW.ED 15:32
DX: R10.84 Generalized abdominal pain (principal); R11.2 Nausea with vomiting, unspecified; J45.909 Unspecified asthma, uncomplicated; E66.9 Obesity, unspecified; Z91.018 Allergy to other foods; Z68.31 Body mass index [BMI] 31.0-31.9, adult; Z91.09 Other allergy status, other than to drugs and biological substances
CPT/HCPCS: 74177; 80053; 81003; 81025; 83690; 85025; 96374; 96375; 99284; J1885; J2405; J7030; Q9967

== ENCOUNTER 2020-09-27 18:52 | Emergency (ER) | payer BC ==
[2020-09-27] MEDS ORDERED: Albuterol HFA 18 Gm Inhaler INH PRN (19:26)
--- NOTE | 2020-09-27 19:34 | EDM.PDOC ---
ED HPI GENERAL MEDICAL PROBLEM - General Chief Complaint: Respiratory Problem Stated Complaint: COUGHING, ASTHMA Time Seen by Provider: 09/27/20 19:26 - History of Present Illness INITIAL COMMENTS - FREE TEXT/NARRATIVE: History of present illness: [] The patient reports she is short of breath and coughing. She started having symptoms around 15 September. She had a negative Covid test . The cough continued to get worse and she felt dyspnea on exertion. She had another test on 02 September and at that time the test was found to be positive and this was reported to her today. She just got off her menstrual period. She does not think she is . She her albuterol inhaler and DuoNeb inhaler as well as a nebulizer at home and still the cough is persistent and bothering her a great deal. Review of systems: As per history of present illness and below otherwise all systems reviewed and negative. Past medical history: As per history of present illness and as reviewed below otherwise noncontributory. Surgical history: As per history of present illness and as reviewed below otherwise noncontributory. Social history: No reported history of drug or alcohol abuse. Family history: As per history of present illness and as reviewed below otherwise noncontributory. Physical exam: Constitutional - well developed, well-nourished and in no acute distress HEENT - normocephalic, no evidence of trauma - external nose and mouth normal - no mass in neck and no JVD - mucosae moist EYES - full EOM, PERRL, no icterus - no evidence of inflammation, injection, or drainage Respiratory - no respiratory distress, equal bilateral expansion, lungs clear to auscultation and no abnormal lung sounds Cardiovascular - Regular Rhythm with S1 and S2 appreciated and no murmur, gallop or rub. GI - abdomen soft without distension or organomegaly - normal bowel sounds - no guard or rebound Musculoskeletal no gross deformity of long bones or joints - no tenderness, swelling or edema Neurologic - Alert and oriented times four - CN II-XII grossly intact - motor sensory and coordination symmetrically normal Psychiatric - appropriate mood and affect with normal thought content Hematologic - No petechiae or purpura - mucosa appropriate color and sclera not pale - normal nail bed color and refill Integument - no rash or evidence of trauma - normal turgor Diagnostics: [] Therapeutics: [] Impression: [] Plan: [] Definitive disposition and diagnosis as appropriate pending reevaluation and review of above. - Related Data Allergies Allergy/AdvReac Type Severity Reaction Status Date / Time animal dander Allergy Hives Verified 09/27/20 19:15 barley Allergy Hives Verified 09/27/20 19:15 Home Meds: Home Meds Albuterol Sulfate [Proair Hfa] 1 puff INH ASDIRECTED PRN 10/05/15 [History] Ipratropium/Albuterol Sulfate [Iprat-Albut 0.5-3(2.5) mg/3 ml] 1 inhalation NEB ASDIRECTED PRN 07/03/20 [History] Benzonatate [Tessalon Perle] 100 mg PO BID PRN #6 capsule 09/27/20 [Rx] Past Medical History - Past Health History Medical/Surgical History: Denies Medical/Surgical History HEENT History: Reports: Impaired Vision, Other (See Below) Other HEENT History: glasses, lower dental retainer Cardiovascular History: Reports: None Respiratory History: Reports: Asthma Gastrointestinal History: Reports: GERD, Irritable Bowel Syndrome Other Gastrointestinal History: EGD and colonscopy Genitourinary History: Reports: None 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 Musculoskeletal History: Reports: None, Other (See Below) Other Musculoskeletal History: left shoulder pain Neurological History: Reports: Other (See Below) Other Neuro History: 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 Psychiatric History: Reports: Anxiety, Depression Endocrine/Metabolic History: Reports: None, Obesity/BMI 30+ Hematologic History: Reports: None, Other (See Below) Immunologic History: Reports: None Oncologic (Cancer) History: Reports: None Dermatologic History: Reports: None - Infectious Disease History Infectious Disease History: Reports: Measles, Other (See Below) Other Infectious Disease History: COVID - Past Surgical History Head Surgeries/Procedures: Reports: None HEENT Surgical History: Reports: Oral Surgery Cardiovascular Surgical History: Reports: None Respiratory Surgical History: Reports: None GI Surgical History: Reports: Cholecystectomy Female Surgical History: Reports: None Endocrine Surgical History: Reports: None Neurological Surgical History: Reports: None Musculoskeletal Surgical History: Reports: None Oncologic Surgical History: Reports: None Dermatological Surgical History: Reports: None Social & Family History - Family History Family Medical History: No Pertinent Family History Cardiac: Reports: Hypertension, [place] Respiratory: Reports: Asthma GI: Reports: Other (See Below) Other GI Family History: chrons Neurological: Reports: CVA Psychiatric: Reports: Other (See Below) Other Psychiatric Family History: etoh and drug abuse - Caffeine Use Caffeine Use: Reports: None - Recreational Drug Use Recreational Drug Use: No ED ROS GENERAL - Review of Systems Review Of Systems: Comprehensive ROS is negative, except as noted in HPI. ED EXAM, GENERAL - Physical Exam Exam: See Below Free Text/Narrative:: My physical exam is in the HPI Course - Vital Signs Last Recorded V/S: Last Vital Signs Temp 36.2 C 09/27/20 19:09 Pulse 89 09/27/20 19:09 Resp 18 09/27/20 19:09 BP 119/80 09/27/20 19:09 Pulse Ox 97 09/27/20 19:09 The patient improved in the emergency department and was never hypoxic. Dis charged in satisfactory condition. - Orders/Labs/Meds Orders: Active Orders 24 hr Category Date Time Status Communication Order [RC] STAT Care 09/27/20 19:35 Active RT Post Treatment Assessment [RC] Click to Edit Care 09/27/20 19:27 Active RT Pre-Treatment Assessment [RC] Click to Edit Care 09/27/20 19:27 Active Chest 1V Frontal [CR] Stat Exams 09/27/20 19:53 Taken Meds: Medications Discontinued Medications Generic Name Dose Route Start Last Admin Trade Name Freq PRN Reason Stop Dose Admin Albuterol 18 gm 09/27/20 19:26 Ventolin Hfa INH Q2H PRN Shortness of Breath Benzonatate 200 mg 09/27/20 19:35 09/27/20 19:44 Tessalon Perles PO 09/27/20 19:36 200 mg ONETIME ONE Administration Benzonatate 200 mg 09/27/20 20:15 Tessalon Perles PO 09/27/20 20:16 ONETIME ONE Prednisone 60 mg 09/27/20 19:36 09/27/20 19:44 Prednisone PO 09/27/20 19:37 60 mg ONETIME ONE Administration Departure - Departure Time of Disposition: 20:17 Disposition: Home, Self-Care 01 Condition: Good Clinical Impression: Cough, COVID-19 - Discharge Information Prescriptions: Benzonatate [Tessalon Perle] 100 mg PO BID PRN #6 capsule PRN Reason: Cough Instructions: Prevent the Spread of COVID-19 if You Are Sick - CDC, COVID-19 Frequently Asked Questions, COVID-19 Referrals: Aedlina Us DO [Primary Care Provider] - Forms: ED Department Discharge Additional Instructions: [facility] - Primary Care [address] [place] [address] [facility] [address] [place] [id number] The following information is given to patients seen in the emergency department who are being discharged to home. This information is to outline your options for follow-up care. We provide all patients seen in our emergency department with a follow-up referral. The need for follow-up, as well as the timing and circumstances, are variable depending upon the specifics of your emergency department visit. If you don't have a primary care physician on staff, we will provide you with a referral. We always advise you to contact your personal physician following an emergency department visit to inform them of the circumstance of the visit and for follow-up with them and/or the need for any referrals to a consulting specialist. The emergency department will also refer you to a specialist when appropriate. This referral assures that you have the opportunity for follow-up care with a specialist. All of these measure are taken in an effort to provide you with optimal care, which includes your follow-up. Under all circumstances we always encourage you to contact your private physician who remains a resource for coordinating your care. When calling for follow-up care, please make the office aware that this follow-up is from your recent emergency room visit. If for any reason you are refused follow-up, please contact the [facility] Emergency Department at and asked to speak to the emergency department charge nurse. Sepsis Event Note (ED) - Evaluation Sepsis Screening Result: No Definite Risk - Focused Exam Vital Signs: Vital Signs Temp Pulse Resp BP Pulse Ox 09/27/20 19:09 36.2 C 89 18 119/80 97 - My Orders Last 24 Hours: My Active Orders 09/27/20 19:27 RT Post Treatment Assessment [RC] Click to Edit RT Pre-Treatment Assessment [RC] Click to Edit 09/27/20 19:35 Communication Order [RC] STAT 09/27/20 19:53 Chest 1V Frontal [CR] Stat - Assessment/Plan Last 24 Hours: My Active Orders 09/27/20 19:27 RT Post Treatment Assessment [RC] Click to Edit RT Pre-Treatment Assessment [RC] Click to Edit 09/27/20 19:35 Communication Order [RC] STAT 09/27/20 19:53 Chest 1V Frontal [CR] Stat
[2020-09-27] MEDS ORDERED: Benzonatate 100 MG Cap PO ONE ×2 (19:35→20:15)
[2020-09-27] MEDS ORDERED: predniSONE 20 MG Tab PO ONE (19:36)
[2020-09-27 20:27] VITALS: BP 115/70; PULSE 83
--- NOTE | 2020-09-27 20:31 | CR ---
INDICATION: Shortness of breath. History of asthma. TECHNIQUE: Chest 1 view Comparison: 03/28/2015. Findings: Cardiomediastinal silhouette is unremarkable. No focal lung consolidation, pleural effusion or pneumothorax. Bones are unremarkable. Impression: No acute cardiopulmonary abnormality. Dictated by Raymond Starr MD @ Sep 27 2020 8:29PM Signed by Dr. Raymond Starr @ Sep 27 2020 8:31PM
== END 2020-09-27 20:30 | disposition home or self-care (01) ==
LOC: MW.ED 18:52
DX: U07.1 COVID-19 (principal); J45.909 Unspecified asthma, uncomplicated; E66.9 Obesity, unspecified; Z68.30 Body mass index [BMI] 30.0-30.9, adult; Z91.018 Allergy to other foods; Z91.048 Other nonmedicinal substance allergy status
CPT/HCPCS: 71045; 99285; A9270; 99283; J3535-GY

== ENCOUNTER 2021-07-09 14:50 | Emergency (ER) | payer BC, OTHER ==
[2021-07-09] MEDS ORDERED: Sodium Chloride 0.9% 1,000 ML IV ONE (15:03)
[2021-07-09] MEDS ORDERED: Sodium Chloride 0.9% 10 ML Syringe FLUSH PRN (15:03)
[2021-07-09] MEDS ORDERED: Sodium Chloride 0.9% 2.5 ML Syringe FLUSH PRN (15:03)
--- NOTE | 2021-07-09 15:05 | EDM.PDOC ---
ED HPI GENERAL MEDICAL PROBLEM - General Chief Complaint: Neuro Symptoms/Deficits Stated Complaint: PASSED OUT Time Seen by Provider: 07/09/21 14:52 - History of Present Illness INITIAL COMMENTS - FREE TEXT/NARRATIVE: History of present illness: [] Shortly after the patient took her antibiotic early this afternoon the patient felt numbness in the left side of her face and left forehead. The numbness was intermittent but then she got lightheaded and says she passed out but lowered her self slowly to the floor. She was out only briefly according to her. She continues to feel little bit of numbness about the face. Patient is being treated for pneumonia recently diagnosed. She has a Covid test pending that was done at [facility]. Review of systems: As per history of present illness and below otherwise all systems reviewed and negative. Past medical history: As per history of present illness and as reviewed below otherwise noncontributory. Surgical history: As per history of present illness and as reviewed below otherwise noncontributory. Social history: No reported history of drug or alcohol abuse. Family history: As per history of present illness and as reviewed below otherwise noncontributory. Physical exam: Constitutional - well developed, well-nourished and in no acute distress HEENT - normocephalic, no evidence of trauma - external nose and mouth normal - no mass in neck and no JVD - mucosae moist EYES - full EOM, PERRL, no icterus - no evidence of inflammation, injection, or drainage Respiratory - no respiratory distress, equal bilateral expansion, lungs clear to auscultation and no abnormal lung sounds Cardiovascular - Regular Rhythm with S1 and S2 appreciated and no murmur, gallop or rub. GI - abdomen soft without distension or organomegaly - normal bowel sounds - no guard or rebound Musculoskeletal no gross deformity of long bones or joints - no tenderness, swelling or edema Neurologic -my customary brief neurologic exam is normal. Alert and oriented times four - CN II-XII grossly intact - motor sensory and coordination symmetrically normal Psychiatric - appropriate mood and affect with normal thought content Hematologic - No petechiae or purpura - mucosa appropriate color and sclera not pale - normal nail bed color and refill Integument - no rash or evidence of trauma - normal turgor Diagnostics: [] Therapeutics: [] Impression: [] Plan: [] Definitive disposition and diagnosis as appropriate pending reevaluation and review of above. - Related Data Allergies Allergy/AdvReac Type Severity Reaction Status Date / Time animal dander Allergy Hives Verified 07/09/21 14:59 barley Allergy Hives Verified 07/09/21 14:59 Home Meds: Home Meds Albuterol Sulfate [Proair Hfa] 1 puff INH ASDIRECTED PRN 10/05/15 [History] Ipratropium/Albuterol Sulfate [Iprat-Albut 0.5-3(2.5) mg/3 ml] 1 inhalation NEB ASDIRECTED PRN 07/03/20 [History] Benzonatate [Tessalon Perle] 100 mg PO BID PRN #6 capsule 09/27/20 [Rx] predniSONE [Prednisone] 20 mg PO DAILY #15 tablet 09/27/20 [Rx] Past Medical History - Past Health History Medical/Surgical History: Denies Medical/Surgical History HEENT History: Reports: Impaired Vision, Other (See Below) Other HEENT History: glasses, lower dental retainer Cardiovascular History: Reports: None Respiratory History: Reports: Asthma Gastrointestinal History: Reports: GERD, Irritable Bowel Syndrome Other Gastrointestinal History: EGD and colonscopy Genitourinary History: Reports: None 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 Musculoskeletal History: Reports: None, Other (See Below) Other Musculoskeletal History: left shoulder pain Neurological History: Reports: Other (See Below) Other Neuro History: 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 Psychiatric History: Reports: Anxiety, Depression Endocrine/Metabolic History: Reports: None, Obesity/BMI 30+ Hematologic History: Reports: None, Other (See Below) Immunologic History: Reports: None Oncologic (Cancer) History: Reports: None Dermatologic History: Reports: None - Infectious Disease History Infectious Disease History: Reports: Measles, Other (See Below) Other Infectious Disease History: COVID - Past Surgical History Head Surgeries/Procedures: Reports: None HEENT Surgical History: Reports: Oral Surgery Cardiovascular Surgical History: Reports: None Respiratory Surgical History: Reports: None GI Surgical History: Reports: Cholecystectomy Female Surgical History: Reports: None Endocrine Surgical History: Reports: None Neurological Surgical History: Reports: None Musculoskeletal Surgical History: Reports: None Oncologic Surgical History: Reports: None Dermatological Surgical History: Reports: None Social & Family History - Family History Family Medical History: No Pertinent Family History Cardiac: Reports: Hypertension, [place] Respiratory: Reports: Asthma GI: Reports: Other (See Below) Other GI Family History: chrons Neurological: Reports: CVA Psychiatric: Reports: Other (See Below) Other Psychiatric Family History: etoh and drug abuse - Caffeine Use Caffeine Use: Reports: None ED ROS GENERAL - Review of Systems Review Of Systems: Comprehensive ROS is negative, except as noted in HPI. ED EXAM, GENERAL - Physical Exam Exam: See Below Free Text/Narrative:: My physical exam is in the HPI #1 Interpretation EKG Interpretation Comments: EKG done 07/09/2021 at 3:08 PM sinus rhythm with a heart rate 71 NM interval 121 QT duration 421 [place] RSR prime on the QRS in V1 and V2 and borderline T abnormalities in the anterior leads. No prior for comparison. Impression no acute injury Course - Vital Signs Last Recorded V/S: Last Vital Signs Temp 36.5 C 07/09/21 15:00 Pulse 79 07/09/21 15:00 Resp 18 07/09/21 15:00 BP 123/66 07/09/21 15:00 Pulse Ox 97 07/09/21 15:00 - Orders/Labs/Meds Orders: Active Orders 24 hr Category Date Time Status Sodium Chloride 0.9% [Saline Flush] Med 07/09/21 15:03 Active 10 ml FLUSH ASDIRECTED PRN Sodium Chloride 0.9% [Saline Flush] Med 07/09/21 15:03 Active 2.5 ml FLUSH ASDIRECTED PRN Saline Lock Insert [OM.PC] Stat Oth 07/09/21 15:03 Ordered Medication Orders Sodium Chloride (Sodium Chloride 0.9% 10 Ml Syringe) 10 ml FLUSH ASDIRECTED PRN PRN Reason: Keep Vein Open Last Admin: 07/09/21 15:22 Dose: 10 ml Documented by: BALTAZAR Sodium Chloride (Sodium Chloride 0.9% 2.5 Ml Syringe) 2.5 ml FLUSH ASDIRECTED PRN PRN Reason: Keep Vein Open Last Admin: 07/09/21 15: Dose: 2.5 ml Documented by: BALTAZAR Labs: Laboratory Tests 07/09/21 07/09/21 Range/Units 15:05 15:05 WBC 14.85 H (4.0-11.0) K/uL RBC 4.90 (4.30-5.90) M/uL Hgb 15.4 (12.0-16.0) g/dL Hct 43.1 (36.0-46.0) % MCV 88.0 (80.0-98.0) fL MCH 31.4 (27.0-32.0) pg MCHC 35.7 (31.0-37.0) g/dL RDW Std Deviation 39.5 (28.0-62.0) fl RDW Coeff of Jessi 12 (11.0-15.0) % Plt Count 315 (150-400) K/uL MPV 10.80 (7.40-12.00) fL Neut % (Auto) 76.8 (48.0-80.0) % Lymph % (Auto) 14.0 L (16.0-40.0) % [place] % (Auto) 8.7 (0.0-15.0) % Eos % (Auto) 0.4 (0.0-7.0) % Baso % (Auto) 0.1 (0.0-1.5) % Neut # (Auto) 11.4 H (1.4-5.7) K/uL Lymph # (Auto) 2.1 (0.6-2.4) K/uL [place] # (Auto) 1.3 H (0.0-0.8) K/uL Eos # (Auto) 0.1 (0.0-0.7) K/uL Baso # (Auto) 0.0 (0.0-0.1) K/uL Nucleated RBC % 0.0 /100WBC Nucleated RBCs # 0 K/uL Sodium 135 L (136-145) mmol/L Potassium 4.0 (3.5-5.1) mmol/L Chloride 101 (98-107) mmol/L Carbon Dioxide 27.4 (21.0-32.0) mmol/L BUN 9 (7.0-18.0) mg/dL Creatinine 0.8 (0.6-1.0) mg/dL Est Cr Clr Drug Dosing 71.84 mL/min Estimated GFR (MDRD) > 60.0 ml/min Glucose 83 (74-106) mg/dL Calcium 8.8 (8.5-10.1) mg/dL Magnesium 2.1 (1.8-2.4) mg/dL Total Bilirubin 0.5 (0.2-1.0) mg/dL AST 15 (15-37) IU/L ALT 33 (14-63) IU/L Alkaline Phosphatase 69 (46-116) U/L Total Protein 8.0 (6.4-8.2) g/dL Albumin 4.3 (3.4-5.0) g/dL Globulin 3.7 (2.6-4.0) g/dL Albumin/Globulin Ratio 1.2 (0.9-1.6) Meds: Medications Generic Name Dose Route Start Last Admin Trade Name Freq PRN Reason Stop Dose Admin Sodium Chloride 10 ml 07/09/21 15:03 07/09/21 15:22 Sodium Chloride 0.9% 10 Ml Syringe FLUSH 10 ml ASDIRECTED PRN Administration Keep Vein Open Sodium Chloride 2.5 ml 07/09/21 15:03 07/09/21 15:21 Sodium Chloride 0.9% 2.5 Ml Syringe FLUSH 2.5 ml ASDIRECTED PRN Administration Keep Vein Open Discontinued Medications Generic Name Dose Route Start Last Admin Trade Name Freq PRN Reason Stop Dose Admin Sodium Chloride 1,000 mls @ 1,000 mls/hr 07/09/21 15:03 07/09/21 15:20 Normal Saline IV 07/09/21 16:02 1,000 mls/hr .Bolus ONE Administration Departure - Departure Time of Disposition: 16:20 Disposition: Home, Self-Care 01 Condition: Good Clinical Impression: Syncope, Facial paresthesia, Impacted cerumen - Discharge Information Instructions: Paresthesia, Earwax Buildup, Adult, Syncope, [id number] Referrals: Adelina Us DO [Primary Care Provider] - Forms: ED Department Discharge Additional Instructions: Make an appointment with Dr. Us. Wear the patch for 2 weeks and then have him follow-up. For earwax put peroxide in the ear canal and sit with that side up until the sizzling bubbling stops or slows down. Then irrigate gently with a bulb syringe. This is the type syringe used to suction the baby's nose. The bulb syringe irrigation has to be done with water the same temperature as her skin or will make you dizzy and possibly nauseated [facility] - Primary Care [address] [place] [address] [id number] [address] [address] The following information is given to patients seen in the emergency department who are being discharged to home. This information is to outline your options for follow-up care. We provide all patients seen in our emergency department with a follow-up referral. The need for follow-up, as well as the timing and circumstances, are variable depending upon the specifics of your emergency department visit. If you don't have a primary care physician on staff, we will provide you with a referral. We always advise you to contact your personal physician following an emergency department visit to inform them of the circumstance of the visit and for follow-up with them and/or the need for any referrals to a consulting specialist. The emergency department will also refer you to a specialist when appropriate. This referral assures that you have the opportunity for follow-up care with a specialist. All of these measure are taken in an effort to provide you with optimal care, which includes your follow-up. Under all circumstances we always encourage you to contact your private physician who remains a resource for coordinating your care. When calling for follow-up care, please make the office aware that this follow-up is from your recent emergency room visit. If for any reason you are refused follow-up, please contact the [facility] Emergency Department at and asked to speak to the emergency department charge nurse. Sepsis Event Note (ED) - Focused Exam Vital Signs: Vital Signs Temp Pulse Resp BP Pulse Ox 07/09/21 15:00 36.5 C 79 18 123/66 97 - My Orders Last 24 Hours: My Active Orders 07/09/21 15:03 Sodium Chloride 0.9% [Saline Flush] 10 ml FLUSH ASDIRECTED PRN Sodium Chloride 0.9% [Saline Flush] 2.5 ml FLUSH ASDIRECTED PRN Saline Lock Insert [OM.PC] Stat - Assessment/Plan Last 24 Hours: My Active Orders 07/09/21 15:03 Sodium Chloride 0.9% [Saline Flush] 10 ml FLUSH ASDIRECTED PRN Sodium Chloride 0.9% [Saline Flush] 2.5 ml FLUSH ASDIRECTED PRN Saline Lock Insert [OM.PC] Stat
[2021-07-09 16:05] LABS: BLOOD UREA NITROGEN,BUN 9 mg/dL (7.0-18.0); CARBON DIOXIDE,CO2 27.4 mmol/L (21.0-32.0); CHLORIDE,CL 101 mmol/L (98-107); GLUCOSE RANDOM 83 mg/dL (74-106); SODIUM,NA 135 mmol/L (136-145)
[2021-07-09 17:34] VITALS: BP 121/70; PULSE 82
== END 2021-07-09 16:30 | disposition home or self-care (01) ==
LOC: MW.ED 14:50
DX: R55 Syncope and collapse (principal); R20.2 Paresthesia of skin; H61.20 Impacted cerumen, unspecified ear; J45.909 Unspecified asthma, uncomplicated; E66.9 Obesity, unspecified; Z68.32 Body mass index [BMI] 32.0-32.9, adult; Z91.018 Allergy to other foods; Z91.048 Other nonmedicinal substance allergy status; Z79.899 Other long term (current) drug therapy
CPT/HCPCS: 36415; 80053; 83735; 85025; 93005; 99284; J7030

== ENCOUNTER 2021-08-12 16:19 | Inpatient (IN) | payer OTHER ==
[2021-08-12] MEDS ORDERED: Sodium Chloride 0.9% 2.5 ML Syringe FLUSH PRN (16:22)
[2021-08-12] MEDS ORDERED: Sodium Chloride 0.9% 10 ML Syringe FLUSH PRN (16:22)
--- NOTE | 2021-08-12 16:27 | EDM.PDOC ---
<hCase Mac - Last Filed: 08/12/21 22:35> ED HPI GENERAL MEDICAL PROBLEM - General Chief Complaint: Abdominal Pain Stated Complaint: severe abdominal pain Time Seen by Provider: 08/12/21 16:20 - Related Data Allergies Allergy/AdvReac Type Severity Reaction Status Date / Time animal dander Allergy Hives Verified 08/12/21 16:28 barley Allergy Hives Verified 08/12/21 16:28 Home Meds: Home Meds Albuterol Sulfate [Proair Hfa] 1 puff INH ASDIRECTED PRN 10/05/15 [History] Ipratropium/Albuterol Sulfate [Iprat-Albut 0.5-3(2.5) mg/3 ml] 1 inhalation NEB ASDIRECTED PRN 07/03/20 [History] ED ROS GENERAL - Review of Systems Review Of Systems: See Below ED EXAM, GI/ABD - Physical Exam Exam: See Below Course - Re-Assessments/Exams Free Text/Narrative Re-Assessment/Exam: 08/12/21 22:35 Patient was hypotensive and try to be discharged he was given a liter of fluids. My nurse practitioner called RN CLINICAL [facility]OURCE who did not assess the patient as it is a medical issue. We spoke to the hospitalist who has some concerns as they thought this is a RN CLINICAL RESOURCE issue at the going back and forth hospitalist will admit patient for observation due to the symptomatic hypotension. Again patient hemoglobin is stable she does have elevated white count but no signs of fever or source of infection lactate was slightly elevated 2.8 she was given fluids we will recheck and again admit for observation. Departure - Departure Time of Disposition: 22:36 Disposition: Home, Self-Care 01 Condition: Good Clinical Impression: Threatened miscarriage in early , Hypotension, Abdominal pain - Discharge Information *PRESCRIPTION DRUG MONITORING PROGRAM REVIEWED*: Not Applicable *COPY OF PRESCRIPTION DRUG MONITORING REPORT IN PATIENT RAJENDRA: Not Applicable Critical Care Note - Critical Care Note Total Time (mins): 45 Comments: Critical Care Procedure Note Authorized and Performed by: Dr. Mac Total critical care time: Approximately Due to a high probability of clinically significant, life threatening deterioration, the patient required my highest level of preparedness to inte rvene emergently and I personally spent this critical care time directly and personally managing the patient. This critical care time included obtaining a history; examining the patient; pulse oximetry; ordering and review of studies; arranging urgent treatment with development of a management plan; evaluation of patient's response to treatment; frequent reassessment; and, discussions with other providers. This critical care time was performed to assess and manage the high probability of imminent, life-threatening deterioration that could result in multi-organ failure. It was exclusive of separately billable procedures and treating other patients and teaching time. <Arely Bey E - Last Filed: 08/14/21 09:59> ED HPI GENERAL MEDICAL PROBLEM - General Source of Information: Reports: Patient History Limitations: Reports: No Limitations - History of Present Illness INITIAL COMMENTS - FREE TEXT/NARRATIVE: HISTORY AND PHYSICAL: History of present illness: Patient is a 31-year-old female who presents to the emergency room with complai nts of lower abdominal pain x 2 hours. Patient has generalized lower abdominal pain that moves from suprapubic to left lower quadrant, describes a "cramping" sensation. Patient states she does feel somewhat constipated, last bowel movement approximately 3 days ago. Pain started when she attempted to have a bowel movement 2 hours prior to arrival, thought she may have noted some blood from her rectum, she is unsure. She states she does have a history of IBS and this "could be a flareup". She does have some mild nausea without vomiting. She states yesterday she received IM Decadron due to an asthma exacerbation. Respiratory symptoms have somewhat improved. Past medical history of GERD, IBS, anxiety, depression and cholecystectomy. Patient denies any fever, chills, headache, change in vision, syncope or near syncope. Denies any chest pain, back pain, shortness of breath or cough. Denies any diarrhea, dysuria, vaginal discharge, vaginal bleeding nor concerns for . Patient has been eating and drinking appropriately. No recent travel or sick contacts. Review of systems: As per history of present illness and below otherwise all systems reviewed and negative. Past medical history: As per history of present illness and as reviewed below otherwise noncontributory. Surgical history: As per history of present illness and as reviewed below otherwise noncontributory. Social history: See social history for further information Family history: As per history of present illness and as reviewed below otherwise noncontributory. Physical exam: General: Well developed and well nourished 31-year-old female. Alert and orientated x 3. Nontoxic in appearance and in no acute distress. Vital signs are stable and have been reviewed by me. Nursing notes were reviewed. HEENT: Atraumatic, normocephalic, pupils equal and reactive bilaterally, negative for conjunctival pallor or scleral icterus, mucous membranes moist, nontender, trachea midline. No drooling or trismus noted. No meningeal signs. No hot potato voice noted. Lungs: Clear to auscultation bilaterally. No wheezes, rales, or rhonchi. Chest nontender. Normal work of breathing, no accessory muscles used. Heart: S1S2, regular rate and rhythm without overt murmur, gallops, or rubs. No JVD. No peripheral edema Abdomen: Soft, nondistended, nontender. Normoactive bowel sounds. Negative for masses or costovertebral tenderness. Pelvic/Rectal: This was done with consent and a audiology technician at the bedside. There is small streak of blood in the vaginal vault without clots or active bleeding. Cervical os is closed. Patient tolerated fair, no cervical motion tenderness. Rectal exam reveals no external or internal hemorrhoids are noted. Negative Hemoccult stool. No stool is felt in the vault. Tolerated fair. Skin: Intact, warm, dry. No lesions or rashes noted. Hematologic: No petechiae or purpra. Mucosa appropriate color and normal nail bed color and refill. Extremities: Atraumatic, moves all extremities per self without difficulty or deficits, negative for cords or calf pain. Neurovascular unremarkable. Neuro: Awake, alert, oriented. Cranial nerves II through XII unremarkable. Cerebellum unremarkable. Motor and sensory unremarkable throughout. Exam nonfocal. Psychiatric: Mood and affect are appropriate. Normal thought process. Answering questions appropriately. Please note that the patient was seen and evaluated during the 2019 SARS-CoV-2 novel coronavirus pandemic period. Community viral transmission is ongoing at time of this encounter and the emergency department is operating under pandemic response procedures. Medical Decision Making: Patient is a 31-year-old female who presents to the emergency room with complaints of lower abdominal pain. Patient states that the pain moves from the mid abdomen and occasionally is in the left lower quadrant. Patient's vital signs are stable. We will do basic lab work and imaging if warranted. Initially I had planned on doing a CT of the abdomen and pelvis due to her complaint of abdominal pain and having a white count of 15. Her serum came back positive. Patient states her last menstrual period was the beginning of May, she was 30 days late on her last menses and did decide to start control. After starting the control she did have what she thought was a menstrual period on 08/07/2021 that lasted a few days. She states she previously had not had any form of control/protection of preventing . At this time will cancel CT abdomen and pelvis and do an ultrasound. She currently has no vaginal bleeding or discharge. I did do a pelvic and rectal exam. Consent was obtained and audiology technician at the bedside. The vagina does have a few streaks of old blood noted in the vault, no blood coming from the os. No clots. No active bleeding and cervical os is closed. Patient's Hemoccult stool is negative. No external or internal hemorrhoids are noted. Patient is concerned that her blood sugar is low as she does feel increasingly lightheaded since being here in the emergency room. Repeat blood sugar is within normal limits. I did give her some juice as she states she has not eaten since 10 AM. Patient's blood pressure is low, will order additional fluids and continue to monitor closely. Patient's quantitative hCG is 178, which is fairly low given her dates. 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 Cardiac activity is seen, but a satisfactory M-mode tracing cannot be obtained to confirm heart rate and rhythm. Recommend follow-up ultrasound to confirm viability. A probable right fundal fibroid measuring up to 3.7 centimeters in diameter. I have talked with the patient about today's findings, in addition to providing specific details for plan of care. We discussed that since her blood pressures have been running low we should do additional diagnostics, including a chest x- ray, lactate and continue trying to get a urine (states she doesn't have the urge to void). Patient is O Positive. 2099: Spoke with RANDEE Lacy maxillofacial surgeon, keke patient's diagnostics and clinical findings. She states that the patient needs to be admitted it should be under the hospitalist care as there is no concerns on an CALL OR CONTACT CENTRE COACH standpoint. She does need to follow-up for repeat quantitative hCG in a few days and a repeat ultrasound in 2 weeks. 2114: Patient needs admission due to hypotension and continued abdominal pain. Enrique declines to admit the patient. Spoke with Dr Sofia, he would like a further work-up. I did discuss doing a CT with the patient, risks vs benefits were reviewed with patient. She declines at this time. 2200: Patient's lactate is elevated, waiting for CXR and urine results. Patient continues to be hypotensive; monitoring closely. Unsure of source for Dr Mac was informed of patient and will further care and arrange admission. Diagnostics: CBC, CMP, Lipase, UA, HCGU, lactate, COVID, CXR, transvaginal US, RH Therapeutics: IV fluid, Toradol, Zofran Impression: Threatened miscarriage, early Orthostatic hypotensive Abdominal pain Definitive disposition and diagnosis as appropriate pending reevaluation and review of above. Onset: Today Duration: Hour(s): Location: Reports: Abdomen abd/rectum Pain Score (Numeric/FACES): 8 Past Medical History - Past Health History Medical/Surgical History: Denies Medical/Surgical History HEENT History: Reports: Impaired Vision, Other (See Below) Other HEENT History: glasses, lower dental retainer Cardiovascular History: Reports: None Respiratory History: Reports: Asthma Gastrointestinal History: Reports: GERD, Irritable Bowel Syndrome Other Gastrointestinal History: EGD and colonscopy Genitourinary History: Reports: None CALL OR CONTACT CENTRE COACH History: Reports: None Musculoskeletal History: Reports: None, Other (See Below) Other Musculoskeletal History: left shoulder pain Neurological History: Reports: Other (See Below) Other Neuro History: 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 Psychiatric History: Reports: Anxiety, Depression Endocrine/Metabolic History: Reports: None, Obesity/BMI 30+ Hematologic History: Reports: None, Other (See Below) Immunologic History: Reports: None Oncologic (Cancer) History: Reports: None Dermatologic History: Reports: None - Infectious Disease History Infectious Disease History: Reports: Measles, Other (See Below) Other Infectious Disease History: COVID - Past Surgical History Head Surgeries/Procedures: Reports: None HEENT Surgical History: Reports: Oral Surgery Cardiovascular Surgical History: Reports: None Respiratory Surgical History: Reports: None GI Surgical History: Reports: Cholecystectomy Female Surgical History: Reports: None Endocrine Surgical History: Reports: None Neurological Surgical History: Reports: None Musculoskeletal Surgical History: Reports: None Oncologic Surgical History: Reports: None Dermatological Surgical History: Reports: None Social & Family History - Family History Family Medical History: No Pertinent Family History Cardiac: Reports: Hypertension, [place] Respiratory: Reports: Asthma GI: Reports: Other (See Below) Other GI Family History: chrons Neurological: Reports: CVA Psychiatric: Reports: Other (See Below) Other Psychiatric Family History: etoh and drug abuse - Caffeine Use Caffeine Use: Reports: None ED EXAM, GI/ABD - Physical Exam Exam: See Below (See dictation) Course - Vital Signs Last Recorded V/S: Last Vital Signs Temp 98.4 F 08/14/21 08:00 Pulse 87 08/14/21 03:59 Resp 16 08/14/21 08:00 BP 98/53 L 08/14/21 08:00 Pulse Ox 92 L 08/14/21 08:00 Orthostatic Blood Pressure [ 102/65 Supine] Orthostatic Blood Pressure [ 77/23 Sitting] - Orders/Labs/Meds Orders: Medication Orders Albuterol (Albuterol 0.083% 2.5 Mg/3 Ml Neb Soln) 2.5 mg NEB Q6HRRT PRN PRN Reason: Wheezing Last Admin: 08/14/21 04:47 Dose: 2.5 mg Documented by: Admin: 08/13/21 20:17 Dose: 2.5 mg Documented by: JULI Sodium Chloride (Normal Saline) 1,000 mls @ 125 mls/hr IV ASDIRECTED RISHI Last Admin: 08/13/21 13:37 Dose: 125 mls/hr Documented by: Infusion: 08/13/21 13:37 Dose: 125 mls/hr Documented by: Admin: 08/13/21 09:19 Dose: 125 mls/hr Documented by: KENY Cosigned by: GOLDEN Ketorolac Tromethamine (Ketorolac 30 Mg/Ml Sdv) 30 mg IVPUSH Q6H PRN PRN Reason: Pain (severe 7-10) Stop: 08/18/21 21:10 Morphine Sulfate (Morphine 2 Mg/Ml Syringe) 2 mg IVPUSH Q4H PRN PRN Reason: Pain Last Admin: 08/14/21 04:48 Dose: 2 mg Documented by: Admin: 08/13/21 20:22 Dose: 2 mg Documented by: Admin: 08/13/21 16:38 Dose: 2 mg Documented by: NEHEMIAH Ondansetron HCl (Ondansetron 4 Mg/2 Ml Sdv) 4 mg IVPUSH Q6H PRN PRN Reason: Nausea/Vomiting Oxycodone/Acetaminophen (Acetaminophen/Oxycodone 325-5 Mg Tab) 1 tab PO Q4H PRN PRN Reason: Pain (moderate 4-6) Oxycodone/Acetaminophen (Acetaminophen/Oxycodone 325-5 Mg Tab) 2 tab PO Q4H PRN PRN Reason: Pain (moderate 4-6) Last Admin: 08/14/21 08:25 Dose: 2 tab Documented by: LARISA Cosigned by: LAURA Admin: 08/14/21 00:50 Dose: 2 tab Documented by: JULI Promethazine HCl (Promethazine 25 Mg/Ml Sdv) 25 mg IM Q6H PRN PRN Reason: Nausea/Vomiting Sodium Chloride (Sodium Chloride 0.9% 10 Ml Syringe) 10 ml FLUSH ASDIRECTED PRN PRN Reason: Keep Vein Open Last Admin: 08/12/21 17:08 Dose: 10 ml Documented by: NINI Sodium Chloride (Sodium Chloride 0.9% 2.5 Ml Syringe) 2.5 ml FLUSH ASDIRECTED PRN PRN Reason: Keep Vein Open Last Admin: 08/12/21 17:06 Dose: 2.5 ml Documented by: NINI Labs: Laboratory Tests 08/12/21 08/12/21 08/12/21 Range/Units 17:13 17:13 17:13 WBC 15.32 H (4.0-11.0) K/uL RBC 4.09 L (4.30-5.90) M/uL Hgb 12.7 (12.0-16.0) g/dL Hct 36.8 (36.0-46.0) % MCV 90.0 (80.0-98.0) fL MCH 31.1 (27.0-32.0) pg MCHC 34.5 (31.0-37.0) g/dL RDW Std Deviation 41.8 (28.0-62.0) fl RDW Coeff of Jessi 13 (11.0-15.0) % Plt Count 331 (150-400) K/uL MPV 11.00 (7.40-12.00) fL Neut % (Auto) 79.1 (48.0-80.0) % Lymph % (Auto) 11.2 L (16.0-40.0) % [place] % (Auto) 9.5 (0.0-15.0) % Eos % (Auto) 0.1 (0.0-7.0) % Baso % (Auto) 0.1 (0.0-1.5) % Neut # (Auto) 12.1 H (1.4-5.7) K/uL Lymph # (Auto) 1.7 (0.6-2.4) K/uL [place] # (Auto) 1.5 H (0.0-0.8) K/uL Eos # (Auto) 0.0 (0.0-0.7) K/uL Baso # (Auto) 0.0 (0.0-0.1) K/uL Nucleated RBC % 0.0 /100WBC Nucleated RBCs # 0 K/uL Sodium 139 (136-145) mmol/L Potassium 4.0 (3.5-5.1) mmol/L Chloride 101 (98-107) mmol/L Carbon Dioxide 25.6 (21.0-32.0) mmol/L BUN 11 (7.0-18.0) mg/dL Creatinine 0.8 (0.6-1.0) mg/dL Est Cr Clr Drug Dosing 71.84 mL/min Estimated GFR (MDRD) > 60.0 ml/min Glucose 125 H (74-106) mg/dL POC Glucose (70-99) mg/dL Lactic Acid (0.4-2.0) mmol/L Calcium 8.6 (8.5-10.1) mg/dL Total Bilirubin 0.3 (0.2-1.0) mg/dL AST 18 (15-37) IU/L ALT 16 (14-63) IU/L Alkaline Phosphatase 61 (46-116) U/L Total Protein 7.2 (6.4-8.2) g/dL Albumin 3.6 (3.4-5.0) g/dL Globulin 3.6 (2.6-4.0) g/dL Albumin/Globulin Ratio 1.0 (0.9-1.6) Lipase 46 L (73-393) U/L HCG, Qual POSITIVE H (NEG) HCG, Quant mIU/mL Urine Color Urine Appearance Urine pH (5.0-8.0) Ur Specific Colony (1.001-1.035) Urine Protein (NEGATIVE) mg/dL Urine Glucose (UA) (NEGATIVE) mg/dL Urine Ketones (NEGATIVE) mg/dL Urine Occult Blood (NEGATIVE) Urine Nitrite (NEGATIVE) Urine Bilirubin (NEGATIVE) Urine Ictotest Urine Urobilinogen (<2.0) EU/dL Ur Leukocyte Esterase (NEGATIVE) Urine RBC (0-2/HPF) Urine WBC (0-5/HPF) Ur Epithelial Cells (NONE-FEW) Calcium Oxalate Crystal (NEGATIVE) Urine Bacteria (NEGATIVE) Urine Mucus (NONE-MOD) [place]maira species DNA (NEGATIVE) Gardnerella DNA Probe (NEGATIVE) SARS-CoV-2 RNA (GUICHO) (NEGATIVE) Trichomonas DNA Probe (NEGATIVE) Blood Type 08/12/21 08/12/21 08/12/21 Range/Units 17:13 17:13 19:56 WBC (4.0-11.0) K/uL RBC (4.30-5.90) M/uL Hgb (12.0-16.0) g/dL Hct (36.0-46.0) % MCV (80.0-98.0) fL MCH (27.0-32.0) pg MCHC (31.0-37.0) g/dL RDW Std Deviation (28.0-62.0) fl RDW Coeff of Jessi (11.0-15.0) % Plt Count (150-400) K/uL MPV (7.40-12.00) fL Neut % (Auto) (48.0-80.0) % Lymph % (Auto) (16.0-40.0) % [place] % (Auto) (0.0-15.0) % Eos % (Auto) (0.0-7.0) % Baso % (Auto) (0.0-1.5) % Neut # (Auto) (1.4-5.7) K/uL Lymph # (Auto) (0.6-2.4) K/uL [place] # (Auto) (0.0-0.8) K/uL Eos # (Auto) (0.0-0.7) K/uL Baso # (Auto) (0.0-0.1) K/uL Nucleated RBC % /100WBC Nucleated RBCs # K/uL Sodium (136-145) mmol/L Potassium (3.5-5.1) mmol/L Chloride (98-107) mmol/L Carbon Dioxide (21.0-32.0) mmol/L BUN (7.0-18.0) mg/dL Creatinine (0.6-1.0) mg/dL Est Cr Clr Drug Dosing mL/min Estimated GFR (MDRD) ml/min Glucose (74-106) mg/dL POC Glucose 115 H (70-99) mg/dL Lactic Acid (0.4-2.0) mmol/L Calcium (8.5-10.1) mg/dL Total Bilirubin (0.2-1.0) mg/dL AST (15-37) IU/L ALT (14-63) IU/L Alkaline Phosphatase (46-116) U/L Total Protein (6.4-8.2) g/dL Albumin (3.4-5.0) g/dL Globulin (2.6-4.0) g/dL Albumin/Globulin Ratio (0.9-1.6) Lipase (73-393) U/L HCG, Qual (NEG) HCG, Quant 178.0 mIU/mL Urine Color Urine Appearance Urine pH (5.0-8.0) Ur Specific Colony (1.001-1.035) Urine Protein (NEGATIVE) mg/dL Urine Glucose (UA) (NEGATIVE) mg/dL Urine Ketones (NEGATIVE) mg/dL Urine Occult Blood (NEGATIVE) Urine Nitrite (NEGATIVE) Urine Bilirubin (NEGATIVE) Urine Ictotest Urine Urobilinogen (<2.0) EU/dL Ur Leukocyte Esterase (NEGATIVE) Urine RBC (0-2/HPF) Urine WBC (0-5/HPF) Ur Epithelial Cells (NONE-FEW) Calcium Oxalate Crystal (NEGATIVE) Urine Bacteria (NEGATIVE) Urine Mucus (NONE-MOD) [place]maira species DNA (NEGATIVE) Gardnerella DNA Probe (NEGATIVE) SARS-CoV-2 RNA (GUICHO) (NEGATIVE) Trichomonas DNA Probe (NEGATIVE) Blood Type O POSITIVE 08/12/21 08/12/21 08/12/21 Range/Units 20:47 21:04 21:05 WBC (4.0-11.0) K/uL RBC (4.30-5.90) M/uL Hgb (12.0-16.0) g/dL Hct (36.0-46.0) % MCV (80.0-98.0) fL MCH (27.0-32.0) pg MCHC (31.0-37.0) g/dL RDW Std Deviation (28.0-62.0) fl RDW Coeff of Jessi (11.0-15.0) % Plt Count (150-400) K/uL MPV (7.40-12.00) fL Neut % (Auto) (48.0-80.0) % Lymph % (Auto) (16.0-40.0) % [place] % (Auto) (0.0-15.0) % Eos % (Auto) (0.0-7.0) % Baso % (Auto) (0.0-1.5) % Neut # (Auto) (1.4-5.7) K/uL Lymph # (Auto) (0.6-2.4) K/uL [place] # (Auto) (0.0-0.8) K/uL Eos # (Auto) (0.0-0.7) K/uL Baso # (Auto) (0.0-0.1) K/uL Nucleated RBC % /100WBC Nucleated RBCs # K/uL Sodium (136-145) mmol/L Potassium (3.5-5.1) mmol/L Chloride (98-107) mmol/L Carbon Dioxide (21.0-32.0) mmol/L BUN (7.0-18.0) mg/dL Creatinine (0.6-1.0) mg/dL Est Cr Clr Drug Dosing mL/min Estimated GFR (MDRD) ml/min Glucose (74-106) mg/dL POC Glucose (70-99) mg/dL Lactic Acid 2.8 H* (0.4-2.0) mmol/L Calcium (8.5-10.1) mg/dL Total Bilirubin (0.2-1.0) mg/dL AST (15-37) IU/L ALT (14-63) IU/L Alkaline Phosphatase (46-116) U/L Total Protein (6.4-8.2) g/dL Albumin (3.4-5.0) g/dL Globulin (2.6-4.0) g/dL Albumin/Globulin Ratio (0.9-1.6) Lipase (73-393) U/L HCG, Qual (NEG) HCG, Quant mIU/mL Urine Color Urine Appearance Urine pH (5.0-8.0) Ur Specific Colony (1.001-1.035) Urine Protein (NEGATIVE) mg/dL Urine Glucose (UA) (NEGATIVE) mg/dL Urine Ketones (NEGATIVE) mg/dL Urine Occult Blood (NEGATIVE) Urine Nitrite (NEGATIVE) Urine Bilirubin (NEGATIVE) Urine Ictotest Urine Urobilinogen (<2.0) EU/dL Ur Leukocyte Esterase (NEGATIVE) Urine RBC (0-2/HPF) Urine WBC (0-5/HPF) Ur Epithelial Cells (NONE-FEW) Calcium Oxalate Crystal (NEGATIVE) Urine Bacteria (NEGATIVE) Urine Mucus (NONE-MOD) [place] species DNA NEGATIVE (NEGATIVE) Gardnerella DNA Probe NEGATIVE (NEGATIVE) SARS-CoV-2 RNA (GUICHO) NEGATIVE (NEGATIVE) Trichomonas DNA Probe NEGATIVE (NEGATIVE) Blood Type 08/12/21 Range/Units 21:35 WBC (4.0-11.0) K/uL RBC (4.30-5.90) M/uL Hgb (12.0-16.0) g/dL Hct (36.0-46.0) % MCV (80.0-98.0) fL MCH (27.0-32.0) pg MCHC (31.0-37.0) g/dL RDW Std Deviation (28.0-62.0) fl RDW Coeff of Jessi (11.0-15.0) % Plt Count (150-400) K/uL MPV (7.40-12.00) fL Neut % (Auto) (48.0-80.0) % Lymph % (Auto) (16.0-40.0) % [place] % (Auto) (0.0-15.0) % Eos % (Auto) (0.0-7.0) % Baso % (Auto) (0.0-1.5) % Neut # (Auto) (1.4-5.7) K/uL Lymph # (Auto) (0.6-2.4) K/uL [place] # (Auto) (0.0-0.8) K/uL Eos # (Auto) (0.0-0.7) K/uL Baso # (Auto) (0.0-0.1) K/uL Nucleated RBC % /100WBC Nucleated RBCs # K/uL Sodium (136-145) mmol/L Potassium (3.5-5.1) mmol/L Chloride (98-107) mmol/L Carbon Dioxide (21.0-32.0) mmol/L BUN (7.0-18.0) mg/dL Creatinine (0.6-1.0) mg/dL Est Cr Clr Drug Dosing mL/min Estimated GFR (MDRD) ml/min Glucose (74-106) mg/dL POC Glucose (70-99) mg/dL Lactic Acid (0.4-2.0) mmol/L Calcium (8.5-10.1) mg/dL Total Bilirubin (0.2-1.0) mg/dL AST (15-37) IU/L ALT (14-63) IU/L Alkaline Phosphatase (46-116) U/L Total Protein (6.4-8.2) g/dL Albumin (3.4-5.0) g/dL Globulin (2.6-4.0) g/dL Albumin/Globulin Ratio (0.9-1.6) Lipase (73-393) U/L HCG, Qual (NEG) HCG, Quant mIU/mL Urine Color YELLOW Urine Appearance HAZY Urine pH 5.5 (5.0-8.0) Ur Specific Colony >= 1.030 (1.001-1.035) Urine Protein 30 H (NEGATIVE) mg/dL Urine Glucose (UA) NEGATIVE (NEGATIVE) mg/dL Urine Ketones NEGATIVE (NEGATIVE) mg/dL Urine Occult Blood NEGATIVE (NEGATIVE) Urine Nitrite NEGATIVE (NEGATIVE) Urine Bilirubin SMALL H (NEGATIVE) Urine Ictotest NEGATIVE Urine Urobilinogen 0.2 (<2.0) EU/dL Ur Leukocyte Esterase NEGATIVE (NEGATIVE) Urine RBC 0-1 (0-2/HPF) Urine WBC 0-2 (0-5/HPF) Ur Epithelial Cells OCCASIONAL (NONE-FEW) Calcium Oxalate Crystal OCCASIONAL (NEGATIVE) Urine Bacteria FEW (NEGATIVE) Urine Mucus LIGHT (NONE-MOD) [place]maira species DNA (NEGATIVE) Gardnerella DNA Probe (NEGATIVE) SARS-CoV-2 RNA (GUICHO) (NEGATIVE) Trichomonas DNA Probe (NEGATIVE) Blood Type Meds: Medications Generic Name Dose Route Start Last Admin Trade Name Noemy PRN Reason Stop Dose Admin Albuterol 2.5 mg 08/13/21 06:11 08/14/21 04:47 Albuterol 0.083% 2.5 Mg/3 Ml Neb Soln NEB 2.5 mg Q6HRRT PRN Administration Wheezing Sodium Chloride 1,000 mls @ 125 mls/hr 08/13/21 06:15 08/13/21 13:37 Normal Saline IV 125 mls/hr ASDIRECTED RISHI Administration Ketorolac Tromethamine 30 mg 08/13/21 21:10 Ketorolac 30 Mg/Ml Sdv IVPUSH 08/18/21 21:10 Q6H PRN Pain (severe 7-10) Morphine Sulfate 2 mg 08/13/21 06:04 08/14/21 04:48 Morphine 2 Mg/Ml Syringe IVPUSH 2 mg Q4H PRN Administration Pain Ondansetron HCl 4 mg 08/13/21 21:10 Ondansetron 4 Mg/2 Ml Sdv IVPUSH Q6H PRN Nausea/Vomiting Oxycodone/Acetaminophen 1 tab 08/13/21 21:10 Acetaminophen/Oxycodone 325-5 Mg Tab PO Q4H PRN Pain (moderate 4-6) Oxycodone/Acetaminophen 2 tab 08/13/21 21:10 08/14/21 08:25 Acetaminophen/Oxycodone 325-5 Mg Tab PO 2 tab Q4H PRN Administration Pain (moderate 4-6) Promethazine HCl 25 mg 08/13/21 21:10 Promethazine 25 Mg/Ml Sdv IM Q6H PRN Nausea/Vomiting Sodium Chloride 10 ml 08/12/21 16:22 08/12/21 17:08 Sodium Chloride 0.9% 10 Ml Syringe FLUSH 10 ml ASDIRECTED PRN Administration Keep Vein Open Sodium Chloride 2.5 ml 08/12/21 16:22 08/12/21 17:06 Sodium Chloride 0.9% 2.5 Ml Syringe FLUSH 2.5 ml ASDIRECTED PRN Administration Keep Vein Open Discontinued Medications Generic Name Dose Route Start Last Admin Trade Name Noemy PRN Reason Stop Dose Admin Albuterol 2.5 mg 08/13/21 11:27 Albuterol 0.083% 2.5 Mg/3 Ml Neb Soln NEB ONETIME PRN Wheezing Calcium Gluconate Confirm 08/13/21 11:00 Calcium Gluconate 10% 1 Gm/10 Ml Sdv Administered 08/13/21 11:01 Dose 1 gm .ROUTE .STK-MED ONE Dexamethasone Confirm 08/13/21 09:57 Dexamethasone 4 Mg/Ml 5 Ml Mdv Administered 08/13/21 09:58 Dose 20 mg .ROUTE .STK-MED ONE Droperidol 0.625 mg 08/13/21 11:27 Droperidol 5 Mg/2 Ml Sdv IVPUSH ONETIME PRN Nausea/Vomiting Fentanyl Confirm 08/13/21 09:58 Fentanyl 100 Mcg/2 Ml Sdv Administered 08/13/21 09:59 Dose 100 mcg .ROUTE .STK-MED ONE Fentanyl 50 mcg 08/13/21 11:27 Fentanyl 100 Mcg/2 Ml Sdv IVPUSH Q5M PRN Pain (mild 1-3) Hydromorphone HCl 1 mg 08/13/21 11:27 08/13/21 12:41 Hydromorphone 1 Mg/Ml Syringe IVPUSH 1 mg Q10M PRN Administration Pain (moderate 4-6) Sodium Chloride 1,000 mls @ 999 mls/hr 08/12/21 16:30 08/12/21 17:05 Normal Saline IV 08/12/21 17:30 999 mls/hr STAT ONE Administration Sodium Chloride 1,000 mls @ 999 mls/hr 08/12/21 19:58 08/12/21 20:03 Normal Saline IV 08/12/21 20:58 999 mls/hr STAT ONE Administration Sodium Chloride 1,000 mls @ 999 mls/hr 08/12/21 20:38 08/12/21 21:27 Normal Saline IV 08/12/21 21:38 999 mls/hr STAT ONE Administration Sodium Chloride 1,000 mls @ 999 mls/hr 08/12/21 21:46 08/12/21 22:21 Normal Saline IV 08/12/21 22:46 999 mls/hr STAT ONE Administration Ceftriaxone Sodium 1 gm/ 50 mls @ 100 mls/hr 08/13/21 06:30 08/13/21 16:48 Sodium Chloride IV Not Given Q24H RISHI Ceftriaxone Sodium 1 gm/ 50 mls @ 100 mls/hr 08/13/21 06:58 08/13/21 16:48 Sodium Chloride IV Not Given Q24H RISHI Ceftriaxone Sodium/Dextrose 1 50 mls @ 100 mls/hr 08/13/21 07:00 08/13/21 09:25 gm/ Premix IV 100 mls/hr Q24H RISHI Administration Sodium Chloride 1,000 mls @ 999 mls/hr 08/13/21 07:19 08/13/21 09:18 Normal Saline IV 08/13/21 08:19 999 mls/hr .Bolus ONE Administration Bupivacaine HCl/Epinephrine Bitart Confirm 08/13/21 11:11 Sensorc Mpf 0.25%-Epi [id number] Administered 08/13/21 11:12 Dose 30 mls @ as directed .ROUTE .STK-MED ONE Ketorolac Tromethamine 30 mg 08/12/21 16:30 08/12/21 17:07 Ketorolac 30 Mg/Ml Sdv IVPUSH 08/12/21 16:31 30 mg ONETIME ONE Administration Lidocaine Confirm 08/13/21 09:57 Lidocaine 2% 5 Ml Sdv Administered 08/13/21 09:58 Dose 5 ml .ROUTE .STK-MED ONE Metoclopramide HCl 10 mg 08/13/21 11:27 Metoclopramide 10 Mg/2 Ml Sdv IVPUSH ONETIME PRN Nausea/Vomiting Midazolam HCl Confirm 08/13/21 09:58 Midazolam 1 Mg/Ml 2 Ml Sdv Administered 08/13/21 09:59 Dose 2 mg .ROUTE .STK-MED ONE Miscellaneous Medication Confirm 08/13/21 10:59 Phenylephrine Hcl In 0.9% Nacl 1 Mg/10 Ml Syringe Administered 08/13/21 11:00 Dose 1 mg .ROUTE .STK-MED ONE Morphine Sulfate 2 mg 08/13/21 11:27 Morphine 2 Mg/Ml Syringe IVPUSH Q10M PRN Pain (severe 7-10) Naloxone HCl 0.1 mg 08/13/21 11:27 Naloxone 0.4 Mg/Ml Sdv IVPUSH ASDIRECTED PRN Respiratory Depression Ondansetron HCl 4 mg 08/12/21 16:30 08/12/21 17:05 Ondansetron 4 Mg/2 Ml Sdv IVPUSH 08/12/21 16:31 4 mg ONETIME ONE Administration Ondansetron HCl Confirm 08/13/21 09:57 Ondansetron 4 Mg/2 Ml Sdv Administered 08/13/21 09:58 Dose 4 mg .ROUTE .STK-MED ONE Ondansetron HCl 4 mg 08/13/21 11:27 Ondansetron 4 Mg/2 Ml Sdv IVPUSH ONETIME PRN Nausea/Vomiting Propofol Confirm 08/13/21 09:59 Propofol 200 Mg/20 Ml Sdv Administered 08/13/21 10:00 Dose 200 mg .ROUTE .STK-MED ONE Rocuronium [place] Confirm 08/13/21 09:57 Rocuronium [place] 50 Mg/5 Ml Syringe Administered 08/13/21 09:58 Dose 50 mg .ROUTE .STK-MED ONE Ropivacaine Confirm 08/13/21 11:11 Ropivacaine 0.5% 5 Mg/Ml 30 Ml Sdv Administered 08/13/21 11:12 Dose 30 ml .ROUTE .STK-MED ONE Sugammadex Sodium Confirm 08/13/21 09:57 Sugammadex Sodium 200 Mg/2 Ml Vial Administered 08/13/21 09:58 Dose 200 mg .ROUTE .STK-MED ONE
[2021-08-12] MEDS ORDERED: Sodium Chloride 0.9% 1,000 ML IV ONE ×4 (16:30→21:46)
[2021-08-12] MEDS ORDERED: Ketorolac 30 MG/ML SDV IVPUSH ONE (16:30)
[2021-08-12] MEDS ORDERED: Ondansetron 4 MG/2 ML SDV IVPUSH ONE (16:30)
[2021-08-12 17:45] LABS: BLOOD UREA NITROGEN,BUN 11 mg/dL (7.0-18.0); CARBON DIOXIDE,CO2 25.6 mmol/L (21.0-32.0); CHLORIDE,CL 101 mmol/L (98-107); GLUCOSE RANDOM 125 mg/dL (74-106); LIPASE 46 U/L (73-393); SODIUM,NA 139 mmol/L (136-145)
--- NOTE | 2021-08-12 19:46 | US ---
HISTORY: Abdominal pain. Uncertain of LMP. Unexpected . COMPARISON: None available of this gestation. TECHNIQUE: Transvaginal ultrasound examination of the early was performed. FINDINGS: There is a bicornuate uterus. A single intrauterine gestational sac is seen with a pole and yolk sac in the left horn. The crown-rump length measurement of 0.5 cm gives an estimated gestational age of 6 weeks 2 days and the mean sac diameter of 2.2 centimeters gives an estimated age of 7 weeks 2 days. The composite ultrasound age is 6 weeks 6 days with an estimated date of delivery of 04/01/2021. Cardiac activity is seen, but an M-mode tracing cannot be obtained to determine the cardiac rate and rhythm. There is a rounded soft tissue mass isoechoic to the uterus in the right anterior fundus. There is no sign of any color Doppler flow. This is probably a pedunculated fibroid measuring 3.7 x 3.4 centimeters in diameter. The left ovary is normal in appearance. The right ovary cannot definitely be identified. There is a small amount of free fluid in the right lateral pelvis, nonspecific. IMPRESSION: Single intrauterine gestation with estimated age of 6 weeks 6 days located in the left horn of a bicornuate uterus. Cardiac activity is seen, but a satisfactory M-mode tracing cannot be obtained to confirm heart rate and rhythm. Recommend follow-up ultrasound to confirm viability. A probable right fundal fibroid measuring up to 3.7 centimeters in diameter. Dictated by Fabian Lange MD @ 08/12/2021 7:45:06 PM (Electronically Signed)
--- NOTE | 2021-08-12 21:06 | PCM.EKG ---
#1 Interpretation EKG Date: 08/12/21 Time: 20:55 Rhythm: NSR Rate (Beats/Min): 83 ST-T: Normal
--- NOTE | 2021-08-12 21:57 | CR ---
INDICATION: Chest pain. COMPARISON: 09/27/2020. TECHNIQUE: Single portable AP view of the chest. FINDINGS: The lungs are hypoinflated. No focal consolidation, pneumothorax or effusion. Cardiac silhouette is enlarged, likely due to AP technique. There are no acute osseous findings. IMPRESSION: Hypoventilatory changes. No acute findings. Dictated by Wilbur Travis MD @ 08/12/2021 9:56:47 PM Dictated by: Wilbur Travis MD @ 08/12/2021 21:56:56 (Electronically Signed)
--- NOTE | 2021-08-13 06:06 | PCM.HP.2 ---
H&P History of Present Illness - General Date of Service: 08/13/21 Admit Problem/Dx: Admission Diagnosis/Problem Admission Diagnosis/Problem Hypotension - History of Present Illness Initial Comments - Free Text/Narative: 31 yo female with pmh of irritable bowel syndrome and asthma who presents to the ED with complaints of lower abdominal pain. Patient reports yesterday she had a decadron shot due to an asthma flair. Today she reports crampy lower abdominal and rectal pain. She reports she hasn't been able to have a bowel movement. She also reports she is having difficulty urinating and thinks she either may have a UTI or her IBS is flaring. She reports being light headed when she stands up. She denies any fevers, chills, or nausea and vomiting. She was noted to have low blood pressures in the 80s-100s systolic. She received IV fluids with improvement in her blood pressure. Her test was positive and pelvic ultrasound revealed a intrauterine . abd/rectum Pain Score (Numeric/FACES): 7 - Related Data Allergies/Adverse Reactions: Allergies Allergy/AdvReac Type Severity Reaction Status Date / Time animal dander Allergy Hives Verified 08/12/21 16:28 barley Allergy Hives Verified 08/12/21 16:28 Home Medications: Home Meds Albuterol Sulfate [Proair Hfa] 1 puff INH ASDIRECTED PRN 10/05/15 [History] Ipratropium/Albuterol Sulfate [Iprat-Albut 0.5-3(2.5) mg/3 ml] 1 inhalation NEB ASDIRECTED PRN 07/03/20 [History] Past Medical History - Past Health History Medical/Surgical History: Denies Medical/Surgical History HEENT History: Reports: Impaired Vision, Other (See Below) Other HEENT History: glasses, lower dental retainer Cardiovascular History: Reports: None Respiratory History: Reports: Asthma Gastrointestinal History: Reports: GERD, Irritable Bowel Syndrome Other Gastrointestinal History: EGD and colonscopy Genitourinary History: Reports: None H[employer]IATE History: Reports: Musculoskeletal History: Reports: Other (See Below) Other Musculoskeletal History: left shoulder pain Neurological History: Reports: Other (See Below) Other Neuro History: seizures until age 1 Psychiatric History: Reports: Anxiety Endocrine/Metabolic History: Reports: Obesity/BMI 30+ Hematologic History: Reports: None Immunologic History: Reports: None Oncologic (Cancer) History: Reports: None Dermatologic History: Reports: None - Infectious Disease History Infectious Disease History: Reports: Chicken Pox, Measles, Novel Coronavirus Other Infectious Disease History: COVID - Past Surgical History Head Surgeries/Procedures: Reports: None HEENT Surgical History: Reports: Oral Surgery Cardiovascular Surgical History: Reports: None Respiratory Surgical History: Reports: None GI Surgical History: Reports: Cholecystectomy, Colonoscopy Female Surgical History: Reports: None Endocrine Surgical History: Reports: None Neurological Surgical History: Reports: None Musculoskeletal Surgical History: Reports: None Oncologic Surgical History: Reports: None Dermatological Surgical History: Reports: None Social & Family History - Family History Family Medical History: No Pertinent Family History Cardiac: Reports: Hypertension, [place] Respiratory: Reports: Asthma GI: Reports: Other (See Below) Other GI Family History: chrons Neurological: Reports: CVA Psychiatric: Reports: Other (See Below) Other Psychiatric Family History: etoh and drug abuse - Tobacco Use Tobacco Use Status *Q: Never Tobacco User - Caffeine Use Caffeine Use: Reports: Tea - Recreational Drug Use Recreational Drug Use: No H&P Review of Systems - Review of Systems: Review Of Systems: Comprehensive ROS is negative, except as noted in HPI. Exam - Exam Exam: See Below - Vital Signs Vital Signs: Last Vital Signs Temp 36.5 C 08/13/21 03:42 Pulse 119 H 08/13/21 03:42 Resp 20 08/13/21 03:42 BP 125/60 08/13/21 03:42 Pulse Ox 94 L 08/13/21 03:42 Orthostatic Blood Pressure [ 102/65 Supine] Orthostatic Blood Pressure [ 77/23 Sitting] Weight: 77.065 kg - Exam General: Alert, Oriented HEENT: Mucosa Moist & [place] Lungs: Clear to Auscultation, Normal Respiratory Effort Cardiovascular: Regular Rate, Regular Rhythm GI/Abdominal Exam: Normal Bowel Sounds, Soft, Non-Tender, No Distention Extremities: Non-Tender, No Pedal Edema Skin: Warm, Dry, Intact - Patient Data Lab Results Last 24 hrs: Laboratory Results - last 24 hr 08/12/21 08/12/21 08/12/21 Range/Units 17:13 17:13 17:13 WBC 15.32 H (4.0-11.0) K/uL RBC 4.09 L (4.30-5.90) M/uL Hgb 12.7 (12.0-16.0) g/dL Hct 36.8 (36.0-46.0) % MCV 90.0 (80.0-98.0) fL MCH 31.1 (27.0-32.0) pg MCHC 34.5 (31.0-37.0) g/dL RDW Std Deviation 41.8 (28.0-62.0) fl RDW Coeff of Jessi 13 (11.0-15.0) % Plt Count 331 (150-400) K/uL MPV 11.00 (7.40-12.00) fL Neut % (Auto) 79.1 (48.0-80.0) % Lymph % (Auto) 11.2 L (16.0-40.0) % Charles % (Auto) 9.5 (0.0-15.0) % Eos % (Auto) 0.1 (0.0-7.0) % Baso % (Auto) 0.1 (0.0-1.5) % Neut # (Auto) 12.1 H (1.4-5.7) K/uL Lymph # (Auto) 1.7 (0.6-2.4) K/uL Charles # (Auto) 1.5 H (0.0-0.8) K/uL Eos # (Auto) 0.0 (0.0-0.7) K/uL Baso # (Auto) 0.0 (0.0-0.1) K/uL Nucleated RBC % 0.0 /100WBC Nucleated RBCs # 0 K/uL Sodium 139 (136-145) mmol/L Potassium 4.0 (3.5-5.1) mmol/L Chloride 101 (98-107) mmol/L Carbon Dioxide 25.6 (21.0-32.0) mmol/L BUN 11 (7.0-18.0) mg/dL Creatinine 0.8 (0.6-1.0) mg/dL Est Cr Clr Drug Dosing 71.84 mL/min Estimated GFR (MDRD) > 60.0 ml/min Glucose 125 H (74-106) mg/dL POC Glucose (70-99) mg/dL Lactic Acid (0.4-2.0) mmol/L Calcium 8.6 (8.5-10.1) mg/dL Total Bilirubin 0.3 (0.2-1.0) mg/dL AST 18 (15-37) IU/L ALT 16 (14-63) IU/L Alkaline Phosphatase 61 (46-116) U/L Total Protein 7.2 (6.4-8.2) g/dL Albumin 3.6 (3.4-5.0) g/dL Globulin 3.6 (2.6-4.0) g/dL Albumin/Globulin Ratio 1.0 (0.9-1.6) Lipase 46 L (73-393) U/L HCG, Qual POSITIVE H (NEG) HCG, Quant mIU/mL Urine Color Urine Appearance Urine pH (5.0-8.0) Ur Specific [place] (1.001-1.035) Urine Protein (NEGATIVE) mg/dL Urine Glucose (UA) (NEGATIVE) mg/dL Urine Ketones (NEGATIVE) mg/dL Urine Occult Blood (NEGATIVE) Urine Nitrite (NEGATIVE) Urine Bilirubin (NEGATIVE) Urine Ictotest Urine Urobilinogen (<2.0) EU/dL Ur Leukocyte Esterase (NEGATIVE) Urine RBC (0-2/HPF) Urine WBC (0-5/HPF) Ur Epithelial Cells (NONE-FEW) Calcium Oxalate Crystal (NEGATIVE) Urine Bacteria (NEGATIVE) Urine Mucus (NONE-MOD) [place] species DNA (NEGATIVE) [place] DNA Probe (NEGATIVE) SARS-CoV-2 RNA (GUICHO) (NEGATIVE) Trichomonas DNA Probe (NEGATIVE) Blood Type 08/12/21 08/12/21 08/12/21 Range/Units 17:13 17:13 19:56 WBC (4.0-11.0) K/uL RBC (4.30-5.90) M/uL Hgb (12.0-16.0) g/dL Hct (36.0-46.0) % MCV (80.0-98.0) fL MCH (27.0-32.0) pg MCHC (31.0-37.0) g/dL RDW Std Deviation (28.0-62.0) fl RDW Coeff of Jessi (11.0-15.0) % Plt Count (150-400) K/uL MPV (7.40-12.00) fL Neut % (Auto) (48.0-80.0) % Lymph % (Auto) (16.0-40.0) % Charles % (Auto) (0.0-15.0) % Eos % (Auto) (0.0-7.0) % Baso % (Auto) (0.0-1.5) % Neut # (Auto) (1.4-5.7) K/uL Lymph # (Auto) (0.6-2.4) K/uL Charles # (Auto) (0.0-0.8) K/uL Eos # (Auto) (0.0-0.7) K/uL Baso # (Auto) (0.0-0.1) K/uL Nucleated RBC % /100WBC Nucleated RBCs # K/uL Sodium (136-145) mmol/L Potassium (3.5-5.1) mmol/L Chloride (98-107) mmol/L Carbon Dioxide (21.0-32.0) mmol/L BUN (7.0-18.0) mg/dL Creatinine (0.6-1.0) mg/dL Est Cr Clr Drug Dosing mL/min Estimated GFR (MDRD) ml/min Glucose (74-106) mg/dL POC Glucose 115 H (70-99) mg/dL Lactic Acid (0.4-2.0) mmol/L Calcium (8.5-10.1) mg/dL Total Bilirubin (0.2-1.0) mg/dL AST (15-37) IU/L ALT (14-63) IU/L Alkaline Phosphatase (46-116) U/L Total Protein (6.4-8.2) g/dL Albumin (3.4-5.0) g/dL Globulin (2.6-4.0) g/dL Albumin/Globulin Ratio (0.9-1.6) Lipase (73-393) U/L HCG, Qual (NEG) HCG, Quant 178.0 mIU/mL Urine Color Urine Appearance Urine pH (5.0-8.0) Ur Specific [place] (1.001-1.035) Urine Protein (NEGATIVE) mg/dL Urine Glucose (UA) (NEGATIVE) mg/dL Urine Ketones (NEGATIVE) mg/dL Urine Occult Blood (NEGATIVE) Urine Nitrite (NEGATIVE) Urine Bilirubin (NEGATIVE) Urine Ictotest Urine Urobilinogen (<2.0) EU/dL Ur Leukocyte Esterase (NEGATIVE) Urine RBC (0-2/HPF) Urine WBC (0-5/HPF) Ur Epithelial Cells (NONE-FEW) Calcium Oxalate Crystal (NEGATIVE) Urine Bacteria (NEGATIVE) Urine Mucus (NONE-MOD) [place] species DNA (NEGATIVE) [place] DNA Probe (NEGATIVE) SARS-CoV-2 RNA ([place]) (NEGATIVE) Trichomonas DNA Probe (NEGATIVE) Blood Type O POSITIVE 08/12/21 08/12/21 08/12/21 Range/Units 20:47 21:04 21:05 WBC (4.0-11.0) K/uL RBC (4.30-5.90) M/uL Hgb (12.0-16.0) g/dL Hct (36.0-46.0) % MCV (80.0-98.0) fL MCH (27.0-32.0) pg MCHC (31.0-37.0) g/dL RDW Std Deviation (28.0-62.0) fl RDW Coeff of Jessi (11.0-15.0) % Plt Count (150-400) K/uL MPV (7.40-12.00) fL Neut % (Auto) (48.0-80.0) % Lymph % (Auto) (16.0-40.0) % Charles % (Auto) (0.0-15.0) % Eos % (Auto) (0.0-7.0) % Baso % (Auto) (0.0-1.5) % Neut # (Auto) (1.4-5.7) K/uL Lymph # (Auto) (0.6-2.4) K/uL [place] # (Auto) (0.0-0.8) K/uL Eos # (Auto) (0.0-0.7) K/uL Baso # (Auto) (0.0-0.1) K/uL Nucleated RBC % /100WBC Nucleated RBCs # K/uL Sodium (136-145) mmol/L Potassium (3.5-5.1) mmol/L Chloride (98-107) mmol/L Carbon Dioxide (21.0-32.0) mmol/L BUN (7.0-18.0) mg/dL Creatinine (0.6-1.0) mg/dL Est Cr Clr Drug Dosing mL/min Estimated GFR (MDRD) ml/min Glucose (74-106) mg/dL POC Glucose (70-99) mg/dL Lactic Acid 2.8 H* (0.4-2.0) mmol/L Calcium (8.5-10.1) mg/dL Total Bilirubin (0.2-1.0) mg/dL AST (15-37) IU/L ALT (14-63) IU/L Alkaline Phosphatase (46-116) U/L Total Protein (6.4-8.2) g/dL Albumin (3.4-5.0) g/dL Globulin (2.6-4.0) g/dL Albumin/Globulin Ratio (0.9-1.6) Lipase (73-393) U/L HCG, Qual (NEG) HCG, Quant mIU/mL Urine Color Urine Appearance Urine pH (5.0-8.0) Ur Specific [place] (1.001-1.035) Urine Protein (NEGATIVE) mg/dL Urine Glucose (UA) (NEGATIVE) mg/dL Urine Ketones (NEGATIVE) mg/dL Urine Occult Blood (NEGATIVE) Urine Nitrite (NEGATIVE) Urine Bilirubin (NEGATIVE) Urine Ictotest Urine Urobilinogen (<2.0) EU/dL Ur Leukocyte Esterase (NEGATIVE) Urine RBC (0-2/HPF) Urine WBC (0-5/HPF) Ur Epithelial Cells (NONE-FEW) Calcium Oxalate Crystal (NEGATIVE) Urine Bacteria (NEGATIVE) Urine Mucus (NONE-MOD) [place] species DNA NEGATIVE (NEGATIVE) [place] DNA Probe NEGATIVE (NEGATIVE) SARS-CoV-2 RNA ([place]) NEGATIVE (NEGATIVE) Trichomonas DNA Probe NEGATIVE (NEGATIVE) Blood Type 08/12/21 08/13/21 Range/Units 21:35 01:50 WBC (4.0-11.0) K/uL RBC (4.30-5.90) M/uL Hgb (12.0-16.0) g/dL Hct (36.0-46.0) % MCV (80.0-98.0) fL MCH (27.0-32.0) pg MCHC (31.0-37.0) g/dL RDW Std Deviation (28.0-62.0) fl RDW Coeff of Jessi (11.0-15.0) % Plt Count (150-400) K/uL MPV (7.40-12.00) fL Neut % (Auto) (48.0-80.0) % Lymph % (Auto) (16.0-40.0) % Charles % (Auto) (0.0-15.0) % Eos % (Auto) (0.0-7.0) % Baso % (Auto) (0.0-1.5) % Neut # (Auto) (1.4-5.7) K/uL Lymph # (Auto) (0.6-2.4) K/uL [place] # (Auto) (0.0-0.8) K/uL Eos # (Auto) (0.0-0.7) K/uL Baso # (Auto) (0.0-0.1) K/uL Nucleated RBC % /100WBC Nucleated RBCs # K/uL Sodium (136-145) mmol/L Potassium (3.5-5.1) mmol/L Chloride (98-107) mmol/L Carbon Dioxide (21.0-32.0) mmol/L BUN (7.0-18.0) mg/dL Creatinine (0.6-1.0) mg/dL Est Cr Clr Drug Dosing mL/min Estimated GFR (MDRD) ml/min Glucose (74-106) mg/dL POC Glucose (70-99) mg/dL Lactic Acid 2.5 H* (0.4-2.0) mmol/L Calcium (8.5-10.1) mg/dL Total Bilirubin (0.2-1.0) mg/dL AST (15-37) IU/L ALT (14-63) IU/L Alkaline Phosphatase (46-116) U/L Total Protein (6.4-8.2) g/dL Albumin (3.4-5.0) g/dL Globulin (2.6-4.0) g/dL Albumin/Globulin Ratio (0.9-1.6) Lipase (73-393) U/L HCG, Qual (NEG) HCG, Quant mIU/mL Urine Color YELLOW Urine Appearance HAZY Urine pH 5.5 (5.0-8.0) Ur Specific [place] >= 1.030 (1.001-1.035) Urine Protein 30 H (NEGATIVE) mg/dL Urine Glucose (UA) NEGATIVE (NEGATIVE) mg/dL Urine Ketones NEGATIVE (NEGATIVE) mg/dL Urine Occult Blood NEGATIVE (NEGATIVE) Urine Nitrite NEGATIVE (NEGATIVE) Urine Bilirubin SMALL H (NEGATIVE) Urine Ictotest NEGATIVE Urine Urobilinogen 0.2 (<2.0) EU/dL Ur Leukocyte Esterase NEGATIVE (NEGATIVE) Urine RBC 0-1 (0-2/HPF) Urine WBC 0-2 (0-5/HPF) Ur Epithelial Cells OCCASIONAL (NONE-FEW) Calcium Oxalate Crystal OCCASIONAL (NEGATIVE) Urine Bacteria FEW (NEGATIVE) Urine Mucus LIGHT (NONE-MOD) [place] species DNA (NEGATIVE) [place] DNA Probe (NEGATIVE) SARS-CoV-2 RNA (GUICHO) (NEGATIVE) Trichomonas DNA Probe (NEGATIVE) Blood Type Result Diagrams: 08/13/21 07:49 08/13/21 06:25 Sepsis Event Note - Evaluation Sepsis Screening Result: No Definite Risk - Focused Exam Vital Signs: Vital Signs Temp Pulse Resp BP Pulse Ox 08/13/21 03:42 36.5 C 119 H 20 125/60 94 L 08/13/21 00:14 37.8 C 75 18 86/50 L 97 08/12/21 23:53 87 86/45 L 97 08/12/21 22:48 95 99/43 L 95 08/12/21 22:00 98 20 106/60 100 08/12/21 21:00 85 20 91/61 100 08/12/21 20:00 83 20 102/65 100 - Problem List (1) Abdominal pain SNOMED Code(s): 46616887 ICD Code: R10.9 - UNSPECIFIED ABDOMINAL PAIN Status: Acute Current Visit: No Problem List Initiated/Reviewed/Updated: Yes Orders Last 24hrs: Active Orders 24 hr Category Date Time Status Patient Status [ADT] Routine ADT 08/12/21 22:33 Active Bladder Scan [RC] ASDIRECTED Care 08/13/21 01:12 Active Blood Glucose Check, Bedside [RC] ONETIME Care 08/12/21 19:58 Active Communication Order [RC] ROUTINE Care 08/13/21 01:12 Active Hemoccult [Fecal Occult Blood Collection] [RC] Care 08/12/21 16:57 Active ASDIRECTED Orthostatic Vital Signs [RC] ASDIRECTED Care 08/12/21 20:26 Active Regular Diet [DIET] Diet 08/13/21 Breakfast Active CBC WITH AUTO DIFF [HEME] Routine Lab 08/13/21 05:30 Ordered CHLAMYDIA AND GONORRHEA BY TMA Stat Lab 08/12/21 20:47 Received COMPREHENSIVE METABOLIC PN,CMP [CHEM] AM Lab 08/13/21 05:11 Ordered COMPREHENSIVE METABOLIC PN,CMP [CHEM] AM Lab 08/14/21 05:11 Ordered Sodium Chloride 0.9% [Saline Flush] Med 08/12/21 16:22 Active 10 ml FLUSH ASDIRECTED PRN Sodium Chloride 0.9% [Saline Flush] Med 08/12/21 16:22 Active 2.5 ml FLUSH ASDIRECTED PRN Convert IV to Saline Lock [OM.PC] Routine Oth 08/13/21 01:11 Ordered Saline Lock Insert [OM.PC] Stat Oth 08/12/21 16:22 Ordered Medication Orders Sodium Chloride (Sodium Chloride 0.9% 10 Ml Syringe) 10 ml FLUSH ASDIRECTED PRN PRN Reason: Keep Vein Open Last Admin: 08/12/21 17:08 Dose: 10 ml Documented by: NINI Sodium Chloride (Sodium Chloride 0.9% 2.5 Ml Syringe) 2.5 ml FLUSH ASDIRECTED PRN PRN Reason: Keep Vein Open Last Admin: 08/12/21 17:06 Dose: 2.5 ml Documented by: NINI Assessment/Plan Comment:: 31 yo female admitted for pelvic pain and low blood pressures. Patients's blood pressures have improved with IV fluids. At this time I am not certain of the source of her abdominal pain. Her leukocytosis could be from her recent steroid use. She does not appear septic at this point but will start Rocephin to cover possible infection. Spoke with Dr. Alvarenga who will come and see patient. We discussed getting a CT scan of abdomen which has been ordered.
[2021-08-13] MEDS ORDERED: cefTRIAXone 1 GM in Sodium Chloride 0.9% 50 ML IV SCH ×2 (06:30→06:58)
[2021-08-13] MEDS ORDERED: cefTRIAXone 1 GM in Premix Bag 1 BAG IV SCH (07:00)
--- NOTE | 2021-08-13 07:08 | PCM.CONS ---
H&P History of Present Illness - General Date of Service: 08/13/21 Admit Problem/Dx: Admission Diagnosis/Problem Admission Diagnosis/Problem Hypotension Lower abdominal pain Source of Information: Patient - History of Present Illness Initial Comments - Free Text/Narative: 31yo unknown LMP Last normal menstrual period may , she did not period in july and used patch last week. She complains of abdominal pain since yesterday. she states pain is constant and it is generalized. She has a hx of asthma and IBS . She received steroid yesterday for acute asthma. She has had constipation for a couple of weeks . She is for 2 years. She works at [employer]. She was complaining of bladder fullness. Patient was admitted to the ED due to hypotension BPs 70s -80s /40s - 50s. 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, Small fluid in the pelvis Possible 3.7cm penduculated fundal fibroid HCG ; 178 H/H 12 -> 7 Affirm - negative, GC - pending UA : negative for nitrate , calcium oxalate PMH: Asthma , IBS PSH: Cholecystectomy Exam; General: Patient in painful distress Chest: CTA Bl CVS: S1 S2 no murmurs Abdomen: Soft , non distended , mild tenderness on palpation of suprapubic, diffuse abdominal tenderness , no rebound or guarding , CVA tenderness mildly positive ( Right and left) , bowel sound hypoactive Pelvic: Normal appearing external genitalia , Normal uterus anteverted , no ad nexal tenderness, normal appearing cervix , rectum full with stool VSS as documented A/P 31yo @ 6w6d with acute abdominal pain unknown etiology r/o Nephrolithiasis, fibroid degeneration , IBS flare Acute onset blood loss - unknown etiology Plan : CT scan of abdomen and pelvis Type and cross match [id number] Repeat CBC Repeat HCG in 2 days Patient signed off to Dr Liu Onset of Symptoms: Reports: Today, Sudden abd/rectum Pain Score (Numeric/FACES): 7 - Related Data Allergies/Adverse Reactions: Allergies Allergy/AdvReac Type Severity Reaction Status Date / Time animal dander Allergy Hives Verified 08/12/21 16:28 barley Allergy Hives Verified 08/12/21 16:28 Home Medications: Home Meds Albuterol Sulfate [Proair Hfa] 1 puff INH ASDIRECTED PRN 10/05/15 [History] Ipratropium/Albuterol Sulfate [Iprat-Albut 0.5-3(2.5) mg/3 ml] 1 inhalation NEB ASDIRECTED PRN 07/03/20 [History] Past Medical History - Past Health History Medical/Surgical History: Denies Medical/Surgical History HEENT History: Reports: Impaired Vision, Other (See Below) Other HEENT History: glasses, lower dental retainer Cardiovascular History: Reports: None Respiratory History: Reports: Asthma Gastrointestinal History: Reports: GERD, Irritable Bowel Syndrome Other Gastrointestinal History: EGD and colonscopy Genitourinary History: Reports: None 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: Musculoskeletal History: Reports: Other (See Below) Other Musculoskeletal History: left shoulder pain Neurological History: Reports: Other (See Below) Other Neuro History: seizures until age 1 Psychiatric History: Reports: Anxiety Endocrine/Metabolic History: Reports: Obesity/BMI 30+ Hematologic History: Reports: None Immunologic History: Reports: None Oncologic (Cancer) History: Reports: None Dermatologic History: Reports: None - Infectious Disease History Infectious Disease History: Reports: Chicken Pox, Measles, Novel Coronavirus Other Infectious Disease History: COVID - Past Surgical History Head Surgeries/Procedures: Reports: None HEENT Surgical History: Reports: Oral Surgery Cardiovascular Surgical History: Reports: None Respiratory Surgical History: Reports: None GI Surgical History: Reports: Cholecystectomy, Colonoscopy Female Surgical History: Reports: None Endocrine Surgical History: Reports: None Neurological Surgical History: Reports: None Musculoskeletal Surgical History: Reports: None Oncologic Surgical History: Reports: None Dermatological Surgical History: Reports: None Social & Family History - Family History Family Medical History: No Pertinent Family History Cardiac: Reports: Hypertension, [place] Respiratory: Reports: Asthma GI: Reports: Other (See Below) Other GI Family History: chrons Neurological: Reports: CVA Psychiatric: Reports: Other (See Below) Other Psychiatric Family History: etoh and drug abuse - Tobacco Use Tobacco Use Status *Q: Never Tobacco User - Caffeine Use Caffeine Use: Reports: Tea - Recreational Drug Use Recreational Drug Use: No H&P Review of Systems - Review of Systems: Review Of Systems: See Below (See HPI) Exam - Exam Exam: See Below (see HPI) - Vital Signs Vital Signs: Last Vital Signs Temp 36.5 C 08/13/21 03:42 Pulse 119 H 08/13/21 03:42 Resp 20 08/13/21 03:42 BP 125/60 08/13/21 03:42 Pulse Ox 94 L 08/13/21 03:42 Orthostatic Blood Pressure [ 102/65 Supine] Orthostatic Blood Pressure [ 77/23 Sitting] Weight: 77.065 kg - Exam General: Mild Distress - Patient Data Lab Results Last 24 hrs: Laboratory Results - last 24 hr 08/12/21 08/12/21 08/12/21 Range/Units 17:13 17:13 17:13 WBC 15.32 H (4.0-11.0) K/uL RBC 4.09 L (4.30-5.90) M/uL Hgb 12.7 (12.0-16.0) g/dL Hct 36.8 (36.0-46.0) % MCV 90.0 (80.0-98.0) fL MCH 31.1 (27.0-32.0) pg MCHC 34.5 (31.0-37.0) g/dL RDW Std Deviation 41.8 (28.0-62.0) fl RDW Coeff of Jessi 13 (11.0-15.0) % Plt Count 331 (150-400) K/uL MPV 11.00 (7.40-12.00) fL Neut % (Auto) 79.1 (48.0-80.0) % Lymph % (Auto) 11.2 L (16.0-40.0) % [place] % (Auto) 9.5 (0.0-15.0) % Eos % (Auto) 0.1 (0.0-7.0) % Baso % (Auto) 0.1 (0.0-1.5) % Neut # (Auto) 12.1 H (1.4-5.7) K/uL Lymph # (Auto) 1.7 (0.6-2.4) K/uL [place] # (Auto) 1.5 H (0.0-0.8) K/uL Eos # (Auto) 0.0 (0.0-0.7) K/uL Baso # (Auto) 0.0 (0.0-0.1) K/uL Nucleated RBC % 0.0 /100WBC Nucleated RBCs # 0 K/uL Sodium 139 (136-145) mmol/L Potassium 4.0 (3.5-5.1) mmol/L Chloride 101 (98-107) mmol/L Carbon Dioxide 25.6 (21.0-32.0) mmol/L BUN 11 (7.0-18.0) mg/dL Creatinine 0.8 (0.6-1.0) mg/dL Est Cr Clr Drug Dosing 71.84 mL/min Estimated GFR (MDRD) > 60.0 ml/min Glucose 125 H (74-106) mg/dL POC Glucose (70-99) mg/dL Lactic Acid (0.4-2.0) mmol/L Calcium 8.6 (8.5-10.1) mg/dL Total Bilirubin 0.3 (0.2-1.0) mg/dL AST 18 (15-37) IU/L ALT 16 (14-63) IU/L Alkaline Phosphatase 61 (46-116) U/L Total Protein 7.2 (6.4-8.2) g/dL Albumin 3.6 (3.4-5.0) g/dL Globulin 3.6 (2.6-4.0) g/dL Albumin/Globulin Ratio 1.0 (0.9-1.6) Lipase 46 L (73-393) U/L HCG, Qual POSITIVE H (NEG) HCG, Quant mIU/mL Urine Color Urine Appearance Urine pH (5.0-8.0) Ur Specific Upton (1.001-1.035) Urine Protein (NEGATIVE) mg/dL Urine Glucose (UA) (NEGATIVE) mg/dL Urine Ketones (NEGATIVE) mg/dL Urine Occult Blood (NEGATIVE) Urine Nitrite (NEGATIVE) Urine Bilirubin (NEGATIVE) Urine Ictotest Urine Urobilinogen (<2.0) EU/dL Ur Leukocyte Esterase (NEGATIVE) Urine RBC (0-2/HPF) Urine WBC (0-5/HPF) Ur Epithelial Cells (NONE-FEW) Calcium Oxalate Crystal (NEGATIVE) Urine Bacteria (NEGATIVE) Urine Mucus (NONE-MOD) Omaira species DNA (NEGATIVE) Gardnerella DNA Probe (NEGATIVE) SARS-CoV-2 RNA (GUICHO) (NEGATIVE) Trichomonas DNA Probe (NEGATIVE) Blood Type 10/13/21 10/13/21 10/13/21 Range/Units 17:13 17:13 19:56 WBC (4.0-11.0) K/uL RBC (4.30-5.90) M/uL Hgb (12.0-16.0) g/dL Hct (36.0-46.0) % MCV (80.0-98.0) fL MCH (27.0-32.0) pg MCHC (31.0-37.0) g/dL RDW Std Deviation (28.0-62.0) fl RDW Coeff of Jessi (11.0-15.0) % Plt Count (150-400) K/uL MPV (7.40-12.00) fL Neut % (Auto) (48.0-80.0) % Lymph % (Auto) (16.0-40.0) % [place] % (Auto) (0.0-15.0) % Eos % (Auto) (0.0-7.0) % Baso % (Auto) (0.0-1.5) % Neut # (Auto) (1.4-5.7) K/uL Lymph # (Auto) (0.6-2.4) K/uL [place] # (Auto) (0.0-0.8) K/uL Eos # (Auto) (0.0-0.7) K/uL Baso # (Auto) (0.0-0.1) K/uL Nucleated RBC % /100WBC Nucleated RBCs # K/uL Sodium (136-145) mmol/L Potassium (3.5-5.1) mmol/L Chloride (98-107) mmol/L Carbon Dioxide (21.0-32.0) mmol/L BUN (7.0-18.0) mg/dL Creatinine (0.6-1.0) mg/dL Est Cr Clr Drug Dosing mL/min Estimated GFR (MDRD) ml/min Glucose (74-106) mg/dL POC Glucose 115 H (70-99) mg/dL Lactic Acid (0.4-2.0) mmol/L Calcium (8.5-10.1) mg/dL Total Bilirubin (0.2-1.0) mg/dL AST (15-37) IU/L ALT (14-63) IU/L Alkaline Phosphatase (46-116) U/L Total Protein (6.4-8.2) g/dL Albumin (3.4-5.0) g/dL Globulin (2.6-4.0) g/dL Albumin/Globulin Ratio (0.9-1.6) Lipase (73-393) U/L HCG, Qual (NEG) HCG, Quant 178.0 mIU/mL Urine Color Urine Appearance Urine pH (5.0-8.0) Ur Specific [place] (1.001-1.035) Urine Protein (NEGATIVE) mg/dL Urine Glucose (UA) (NEGATIVE) mg/dL Urine Ketones (NEGATIVE) mg/dL Urine Occult Blood (NEGATIVE) Urine Nitrite (NEGATIVE) Urine Bilirubin (NEGATIVE) Urine Ictotest Urine Urobilinogen (<2.0) EU/dL Ur Leukocyte Esterase (NEGATIVE) Urine RBC (0-2/HPF) Urine WBC (0-5/HPF) Ur Epithelial Cells (NONE-FEW) Calcium Oxalate Crystal (NEGATIVE) Urine Bacteria (NEGATIVE) Urine Mucus (NONE-MOD) Omaira species DNA (NEGATIVE) Gardnerella DNA Probe (NEGATIVE) SARS-CoV-2 RNA (GUICHO) (NEGATIVE) Trichomonas DNA Probe (NEGATIVE) Blood Type O POSITIVE 08/12/21 08/12/21 08/12/21 Range/Units 20:47 21:04 21:05 WBC (4.0-11.0) K/uL RBC (4.30-5.90) M/uL Hgb (12.0-16.0) g/dL Hct (36.0-46.0) % MCV (80.0-98.0) fL MCH (27.0-32.0) pg MCHC (31.0-37.0) g/dL RDW Std Deviation (28.0-62.0) fl RDW Coeff of Jessi (11.0-15.0) % Plt Count (150-400) K/uL MPV (7.40-12.00) fL Neut % (Auto) (48.0-80.0) % Lymph % (Auto) (16.0-40.0) % [place] % (Auto) (0.0-15.0) % Eos % (Auto) (0.0-7.0) % Baso % (Auto) (0.0-1.5) % Neut # (Auto) (1.4-5.7) K/uL Lymph # (Auto) (0.6-2.4) K/uL [place] # (Auto) (0.0-0.8) K/uL Eos # (Auto) (0.0-0.7) K/uL Baso # (Auto) (0.0-0.1) K/uL Nucleated RBC % /100WBC Nucleated RBCs # K/uL Sodium (136-145) mmol/L Potassium (3.5-5.1) mmol/L Chloride (98-107) mmol/L Carbon Dioxide (21.0-32.0) mmol/L BUN (7.0-18.0) mg/dL Creatinine (0.6-1.0) mg/dL Est Cr Clr Drug Dosing mL/min Estimated GFR (MDRD) ml/min Glucose (74-106) mg/dL POC Glucose (70-99) mg/dL Lactic Acid 2.8 H* (0.4-2.0) mmol/L Calcium (8.5-10.1) mg/dL Total Bilirubin (0.2-1.0) mg/dL AST (15-37) IU/L ALT (14-63) IU/L Alkaline Phosphatase (46-116) U/L Total Protein (6.4-8.2) g/dL Albumin (3.4-5.0) g/dL Globulin (2.6-4.0) g/dL Albumin/Globulin Ratio (0.9-1.6) Lipase (73-393) U/L HCG, Qual (NEG) HCG, Quant mIU/mL Urine Color Urine Appearance Urine pH (5.0-8.0) Ur Specific [place] (1.001-1.035) Urine Protein (NEGATIVE) mg/dL Urine Glucose (UA) (NEGATIVE) mg/dL Urine Ketones (NEGATIVE) mg/dL Urine Occult Blood (NEGATIVE) Urine Nitrite (NEGATIVE) Urine Bilirubin (NEGATIVE) Urine Ictotest Urine Urobilinogen (<2.0) EU/dL Ur Leukocyte Esterase (NEGATIVE) Urine RBC (0-2/HPF) Urine WBC (0-5/HPF) Ur Epithelial Cells (NONE-FEW) Calcium Oxalate Crystal (NEGATIVE) Urine Bacteria (NEGATIVE) Urine Mucus (NONE-MOD) Omaira species DNA NEGATIVE (NEGATIVE) Gardnerella DNA Probe NEGATIVE (NEGATIVE) SARS-CoV-2 RNA (GUICHO) NEGATIVE (NEGATIVE) Trichomonas DNA Probe NEGATIVE (NEGATIVE) Blood Type 08/12/21 08/13/21 Range/Units 21:35 01:50 WBC (4.0-11.0) K/uL RBC (4.30-5.90) M/uL Hgb (12.0-16.0) g/dL Hct (36.0-46.0) % MCV (80.0-98.0) fL MCH (27.0-32.0) pg MCHC (31.0-37.0) g/dL RDW Std Deviation (28.0-62.0) fl RDW Coeff of Jessi (11.0-15.0) % Plt Count (150-400) K/uL MPV (7.40-12.00) fL Neut % (Auto) (48.0-80.0) % Lymph % (Auto) (16.0-40.0) % [place] % (Auto) (0.0-15.0) % Eos % (Auto) (0.0-7.0) % Baso % (Auto) (0.0-1.5) % Neut # (Auto) (1.4-5.7) K/uL Lymph # (Auto) (0.6-2.4) K/uL [place] # (Auto) (0.0-0.8) K/uL Eos # (Auto) (0.0-0.7) K/uL Baso # (Auto) (0.0-0.1) K/uL Nucleated RBC % /100WBC Nucleated RBCs # K/uL Sodium (136-145) mmol/L Potassium (3.5-5.1) mmol/L Chloride (98-107) mmol/L Carbon Dioxide (21.0-32.0) mmol/L BUN (7.0-18.0) mg/dL Creatinine (0.6-1.0) mg/dL Est Cr Clr Drug Dosing mL/min Estimated GFR (MDRD) ml/min Glucose (74-106) mg/dL POC Glucose (70-99) mg/dL Lactic Acid 2.5 H* (0.4-2.0) mmol/L Calcium (8.5-10.1) mg/dL Total Bilirubin (0.2-1.0) mg/dL AST (15-37) IU/L ALT (14-63) IU/L Alkaline Phosphatase (46-116) U/L Total Protein (6.4-8.2) g/dL Albumin (3.4-5.0) g/dL Globulin (2.6-4.0) g/dL Albumin/Globulin Ratio (0.9-1.6) Lipase (73-393) U/L HCG, Qual (NEG) HCG, Quant mIU/mL Urine Color YELLOW Urine Appearance HAZY Urine pH 5.5 (5.0-8.0) Ur Specific [place] >= 1.030 (1.001-1.035) Urine Protein 30 H (NEGATIVE) mg/dL Urine Glucose (UA) NEGATIVE (NEGATIVE) mg/dL Urine Ketones NEGATIVE (NEGATIVE) mg/dL Urine Occult Blood NEGATIVE (NEGATIVE) Urine Nitrite NEGATIVE (NEGATIVE) Urine Bilirubin SMALL H (NEGATIVE) Urine Ictotest NEGATIVE Urine Urobilinogen 0.2 (<2.0) EU/dL Ur Leukocyte Esterase NEGATIVE (NEGATIVE) Urine RBC 0-1 (0-2/HPF) Urine WBC 0-2 (0-5/HPF) Ur Epithelial Cells OCCASIONAL (NONE-FEW) Calcium Oxalate Crystal OCCASIONAL (NEGATIVE) Urine Bacteria FEW (NEGATIVE) Urine Mucus LIGHT (NONE-MOD) Omaira species DNA (NEGATIVE) Gardnerella DNA Probe (NEGATIVE) SARS-CoV-2 RNA (GUICHO) (NEGATIVE) Trichomonas DNA Probe (NEGATIVE) Blood Type Result Diagrams: 08/13/21 07:49 08/13/21 06:25 Sepsis Event Note - Evaluation Sepsis Screening Result: No Definite Risk - Focused Exam Vital Signs: Vital Signs Temp Pulse Resp BP Pulse Ox 08/13/21 03:42 36.5 C 119 H 20 125/60 94 L 08/13/21 00:14 37.8 C 75 18 86/50 L 97 08/12/21 23:53 87 86/45 L 97 08/12/21 22:48 95 99/43 L 95 08/12/21 22:00 98 20 106/60 100 08/12/21 21:00 85 20 91/61 100 08/12/21 20:00 83 20 102/65 100 *Q Meaningful Use (ADM) - VTE *Q VTE Criteria *Q: 0 Consult PN Assessment/Plan Procedures: Procedures AIRWAY INHALATION TREATMENT (07/09/20) ASSAY OF FERRITIN (10/13/20) ASSAY OF FOLIC ACID SERUM (10/13/20) ASSAY OF LIPASE (07/13/20) ASSAY OF MAGNESIUM (07/09/21) ASSAY OF PROGESTERONE (06/19/18) ASSAY THYROID STIM HORMONE (06/19/18) CHEST X-RAY 2VW FRONTAL&LATL (03/28/15) CHORIONIC GONADOTROPIN ASSAY (06/19/18) COLONOSCOPY AND BIOPSY (07/09/20) COMPLETE CBC AUTOMATED (10/13/20) COMPLETE CBC W/AUTO DIFF WBC (07/09/21) COMPREHEN METABOLIC PANEL (07/09/21) CT ABD & PELV W/CONTRAST (07/13/20) CT ABD & PELVIS W/O CONTRAST (06/13/20) EGD BIOPSY SINGLE/MULTIPLE (07/09/20) ELECTROCARDIOGRAM TRACING (07/09/21) EMERGENCY DEPT VISIT (07/09/21) EMERGENCY DEPT VISIT (09/27/20) EMERGENCY DEPT VISIT (07/13/20) EMERGENCY DEPT VISIT (06/15/16) EMERGENCY DEPT VISIT (10/05/15) EMERGENCY DEPT VISIT (03/28/15) EMERGENCY DEPT VISIT (02/19/15) EMERGENCY DEPT VISIT (01/18/15) EMERGENCY DEPT VISIT (12/29/14) EVALUATE PT USE OF INHALER (07/09/14) HEMATOCRIT (06/19/18) HEMOGLOBIN (06/19/18) HPV HIGH-RISK TYPES (06/19/18) HYDRATE IV INFUSION ADD-ON (10/31/19) IRON BINDING TEST (10/13/20) LAPAROSCOPIC CHOLECYSTECTOMY (03/27/15) MRI CHEST SPINE W/O DYE (02/22/20) MRI JOINT UPR EXTREM W/O DYE (11/07/19) PROTHROMBIN TIME (06/19/18) ROUTINE VENIPUNCTURE (07/09/21) SARS-COV-2 COVID-19 AMP PRB (07/08/20) THER/PROPH/DIAG INJ IV PUSH (07/13/20) THROMBOPLASTIN TIME PARTIAL (06/19/18) TRANSVAGINAL US NON-OB (06/20/18) TX/PRO/DX INJ NEW DRUG ADDON (07/13/20) URINALYSIS AUTO W/O SCOPE (07/13/20) URINALYSIS AUTO W/SCOPE (10/31/19) URINE TEST (07/13/20) VITAMIN B-12 (10/13/20) X-RAY EXAM CHEST 1 VIEW (09/27/20) X-RAY EXAM OF SHOULDER (10/06/17) (1) Abdominal pain SNOMED Code(s): 75731503 Code(s): R10.9 - UNSPECIFIED ABDOMINAL PAIN Current Visit: No Problem List Initiated/Reviewed/Updated: Yes Plan: see HPI Requesting Provider: ruthy
[2021-08-13] MEDS ORDERED: Sodium Chloride 0.9% 1,000 ML IV ONE (07:19)
[2021-08-13 07:55] LABS: BLOOD UREA NITROGEN,BUN 10 mg/dL (7.0-18.0); CARBON DIOXIDE,CO2 22.2 mmol/L (21.0-32.0); CHLORIDE,CL 108 mmol/L (98-107); GLUCOSE RANDOM 114 mg/dL (74-106); POTASSIUM,K 4.3 mmol/L (3.5-5.1); SODIUM,NA 142 mmol/L (136-145)
--- NOTE | 2021-08-13 08:21 | US ---
INDICATION: Abdominal pain. Six weeks . TECHNIQUE: Ultrasound renal and bladder complete. Velásquez-scale and color Doppler sonographic images were acquired of the kidneys and urinary bladder. COMPARISON: None. FINDINGS: Right kidney: 9 cm. Left kidney: 8 cm. Normal echotexture and cortex. No suspicious masses, stones, or hydronephrosis. Bladder: Normal in caliber and appearance. Color Doppler images demonstrate bilateral ureteral jets. All Other: Large amount of free fluid is present in the abdomen. IMPRESSION: Unremarkable ultrasound of the kidneys. However, there is a relatively large amount of free intra-abdominal fluid of uncertain etiology and significance. Dictated by Fred Haley MD @ 08/13/2021 8:19:48 AM (Electronically Signed)
--- NOTE | 2021-08-13 09:03 | CT ---
INDICATION: Chest pain. TECHNIQUE: CT chest without contrast. COMPARISON: None. FINDINGS: Lungs and pleura: No suspicious nodules or infiltrates. No pleural effusions, pleural thickening, or pneumothorax. Heart and vasculature: Heart size is normal. Thoracic aorta and pulmonary artery are normal in caliber. Lymph nodes/mediastinum: No mediastinal, hilar, or axillary adenopathy. Chest wall: No masses. Upper abdomen: Findings in the abdomen will be detailed on a separate report. Bones: Unremarkable for age. IMPRESSION: Unremarkable CT of the chest. No finding to explain chest pain. Please note that all CT scans at this facility use dose modulation, iterative reconstruction, and/or weight-based dosing when appropriate to reduce radiation dose to as low as reasonably achievable. Dictated by Fred Haley MD @ 08/13/2021 9:03:16 AM (Electronically Signed)
--- NOTE | 2021-08-13 09:14 | CT ---
INDICATION: Abdominal pain. TECHNIQUE: CT abdomen and pelvis without contrast. COMPARISON: None. FINDINGS: Liver: Normal in size and attenuation. No suspicious masses. Gallbladder and bile ducts: Post cholecystectomy. No biliary dilatation. Pancreas: Unremarkable. No mass or inflammation. Spleen: Normal in size. No masses. Adrenal glands: Normal in size. No nodules. Kidneys: Normal in size. No suspicious masses, stones, or hydronephrosis. GI tract: Unremarkable. Normal in caliber. No sign of mass or inflammation. No signs of appendicitis. Vasculature: Unremarkable. Lymph nodes: No lymphadenopathy. Abdominal wall/Omentum/Peritoneum: There is a moderate to large amount of free fluid in the abdomen and pelvis. This fluid is relatively dense suggesting hemorrhage. Pelvis: There is an intrauterine gestation. There is discontinuity of the left uterine wall visualized on the axial series 206, image 143. This is suspicious for uterine rupture. Bones: Unremarkable for age. IMPRESSION: There is an intrauterine gestation with findings suspicious for rupture of the left uterine wall with a moderate to large amount of free fluid/blood in the abdomen and pelvis. Results discussed with Dr. Sofia at 0910 hours. Please note that all CT scans at this facility use dose modulation, iterative reconstruction, and/or weight-based dosing when appropriate to reduce radiation dose to as low as reasonably achievable. Dictated by Fred Haley MD @ 08/13/2021 9:12:36 AM (Electronically Signed)
[2021-08-13] MEDS: Sodium Chloride 0.9% 1,000 ML IV SCH ×2 (09:19→13:37)
--- NOTE | 2021-08-13 09:37 | PCM.SN.2 ---
- Free Text/Narrative Note: Radiologist reported to me that uterus looks ruptured on CT scan with free fluid in abdomen. I spoke with Dr. Liu who will take patient to ER. pRBC have been ordered and another fluid bolus. Time Documentation
--- NOTE | 2021-08-13 09:44 | PCM.SN.2 ---
- Free Text/Narrative Note: Anesthesia Start: 914 Anesthesia Stop: [address] PIV in patient receiving blood for acute anemia and possible intraabdominal bleeding 20g catheter placed under sterile conditions in left forearm. No complications/ Jadon Crockett MD Time Documentation
[2021-08-13] MEDS ORDERED: Lidocaine 2% 5 ML SDV ONE (09:57)
[2021-08-13] MEDS ORDERED: Dexamethasone 4 MG/ML 5 ML MDV ONE (09:57)
[2021-08-13] MEDS ORDERED: Sugammadex Sodium 200 MG/2 ML VIAL ONE (09:57)
[2021-08-13] MEDS ORDERED: Rocuronium Bromide 50 MG/5 ML Syringe ONE (09:57)
[2021-08-13] MEDS ORDERED: Ondansetron 4 MG/2 ML SDV ONE (09:57)
[2021-08-13] MEDS ORDERED: Midazolam 1 MG/ML 2 ML SDV ONE (09:58)
[2021-08-13] MEDS ORDERED: fentaNYL 100 MCG/2 ML SDV ONE (09:58)
[2021-08-13] MEDS ORDERED: Propofol 200 MG/20 ML SDV ONE (09:59)
--- NOTE | 2021-08-13 10:09 | PCM.SN.2 ---
- Free Text/Narrative Note: CT results with intraperitoneal hemorrhage, appears to be from uterine wall. Suspect ruptured ectopic . Discussed result with patient at bedside, unclear of exact location of the ectopic based on very poor US images, per US report is in the left uterine horn. Concerns for ruptured cornual ectopic. Plan for exploratory laparotomy, possible unilateral or bilateral salpingectomy/salpingostomy, poss ible hysterectomy. Patient is agreeable, questions answered and consent signed. Patient receiving 1u pRBC. Will proceed to OR urgently. OR and anesthesia team informed. Time Documentation
[2021-08-13] MEDS ORDERED: Calcium Gluconate 10% 1 GM/10 ML SDV ONE (11:00)
[2021-08-13] MEDS ORDERED: Bupivacaine 25%/EPINEPHrine/PF 30 ML ONE (11:11)
[2021-08-13] MEDS ORDERED: Ropivacaine 0.5% 5 MG/ML 30 ML SDV ONE (11:11)
[2021-08-13] MEDS ORDERED: HYDROmorphone 1 MG/ML Syringe IVPUSH PRN (11:27)
[2021-08-13] MEDS ORDERED: Metoclopramide 10 MG/2 ML SDV IVPUSH PRN (11:27)
[2021-08-13] MEDS ORDERED: Ondansetron 4 MG/2 ML SDV IVPUSH PRN ×2 (11:27→21:10)
[2021-08-13] MEDS ORDERED: Albuterol 0.083% 2.5 MG/3 ML Neb Soln NEB PRN (11:27)
[2021-08-13] MEDS ORDERED: Naloxone 0.4 MG/ML SDV IVPUSH PRN (11:27)
[2021-08-13] MEDS ORDERED: fentaNYL 100 MCG/2 ML SDV IVPUSH PRN (11:27)
[2021-08-13] MEDS ORDERED: Morphine 2 MG/ML SYRINGE IVPUSH PRN (11:27)
--- NOTE | 2021-08-13 11:27 | PCM.PREANE ---
Preanesthetic Assessment - Anesthesia/Transfusion/Family Hx Anesthesia History: Prior Anesthesia Without Reaction Other Type of Anesthesia Reaction Comment: "mother almost during surgery, not sure why" Transfusion History: Prior Transfusion Without Reaction Intubation History: Unknown - Review of Systems General: No Symptoms Pulmonary: No Symptoms Cardiovascular: Chest Pain, Dyspnea on Exertion, Lightheadedness Gastrointestinal: No Symptoms, Abdominal Pain Neurological: No Symptoms Other: Reports: None - Physical Assessment NPO Status Date: 08/13/21 NPO Status Time: 00:00 Vital Signs: Last Vital Signs Temp 98.2 F 08/13/21 09:55 Pulse 118 H 08/13/21 09:55 Resp 30 H 08/13/21 09:55 BP 107/59 L 08/13/21 09:55 Pulse Ox 98 08/13/21 09:55 Orthostatic Blood Pressure [ 102/65 Supine] Orthostatic Blood Pressure [ 77/23 Sitting] Height: 4 ft 11 in Weight: 169 lb 14.4 oz ASA Class: 2E Mental Status: Alert & Oriented x3 Airway Class: Mallampati = 1 Dentition: Reports: Normal Dentition Thyro-Mental Finger Breadths: 3 Mouth Opening Finger Breadths: 3 ROM/Head Extension: Full Lungs: Clear to Auscultation, Normal Respiratory Effort Cardiovascular: Regular Rate, Regular Rhythm - Lab Values: Laboratory Last Values WBC 14.41 K/uL (4.0-11.0) H 08/13/21 07:49 RBC 2.37 M/uL (4.30-5.90) L 08/13/21 07:49 Hgb 7.4 g/dL (12.0-16.0) L 08/13/21 07:49 Hct 21.3 % (36.0-46.0) L 08/13/21 07:49 MCV 89.9 fL (80.0-98.0) 08/13/21 07:49 MCH 31.2 pg (27.0-32.0) 08/13/21 07:49 MCHC 34.7 g/dL (31.0-37.0) 08/13/21 07:49 RDW Std Deviation 43.3 fl (28.0-62.0) 08/13/21 07:49 RDW Coeff of Jessi 13 % (11.0-15.0) 08/13/21 07:49 Plt Count 282 K/uL (150-400) 08/13/21 07:49 MPV 10.20 fL (7.40-12.00) 08/13/21 07:49 Neut % (Auto) 78.2 % (48.0-80.0) 08/13/21 07:49 Lymph % (Auto) 9.5 % (16.0-40.0) L 08/13/21 07:49 Holt % (Auto) 11.9 % (0.0-15.0) 08/13/21 07:49 Eos % (Auto) 0.3 % (0.0-7.0) 08/13/21 07:49 Baso % (Auto) 0.1 % (0.0-1.5) 08/13/21 07:49 Neut # (Auto) 11.3 K/uL (1.4-5.7) H 08/13/21 07:49 Lymph # (Auto) 1.4 K/uL (0.6-2.4) 08/13/21 07:49 Holt # (Auto) 1.7 K/uL (0.0-0.8) H 08/13/21 07:49 Eos # (Auto) 0.1 K/uL (0.0-0.7) 08/13/21 07:49 Baso # (Auto) 0.0 K/uL (0.0-0.1) 08/13/21 07:49 Nucleated RBC % 0.0 /100WBC 08/13/21 07:49 Nucleated RBCs # 0 K/uL 08/13/21 07:49 Sodium 142 mmol/L (136-145) 08/13/21 06:25 Potassium 4.3 mmol/L (3.5-5.1) 08/13/21 06:25 Chloride 108 mmol/L (98-107) H 08/13/21 06:25 Carbon Dioxide 22.2 mmol/L (21.0-32.0) 08/13/21 06:25 BUN 10 mg/dL (7.0-18.0) 08/13/21 06:25 Creatinine 0.6 mg/dL (0.6-1.0) 08/13/21 06:25 Est Cr Clr Drug Dosing 95.79 mL/min 08/13/21 06:25 Estimated GFR (MDRD) > 60.0 ml/min 08/13/21 06:25 Glucose 114 mg/dL (74-106) H 08/13/21 06:25 POC Glucose 115 mg/dL (70-99) H 08/12/21 19:56 Lactic Acid 2.5 mmol/L (0.4-2.0) H* 08/13/21 01:50 Calcium 6.9 mg/dL (8.5-10.1) L 08/13/21 06:25 Total Bilirubin 0.3 mg/dL (0.2-1.0) 08/13/21 06:25 AST 19 IU/L (15-37) 08/13/21 06:25 ALT 29 IU/L (14-63) 08/13/21 06:25 Alkaline Phosphatase 47 U/L (46-116) 08/13/21 06:25 Total Protein 5.3 g/dL (6.4-8.2) L 08/13/21 06:25 Albumin 2.6 g/dL (3.4-5.0) L 08/13/21 06:25 Globulin 2.7 g/dL (2.6-4.0) 08/13/21 06:25 Albumin/Globulin Ratio 1.0 (0.9-1.6) 08/13/21 06:25 Lipase 46 U/L (73-393) L 08/12/21 17:13 HCG, Qual POSITIVE (NEG) H 08/12/21 17:13 HCG, Quant 178.0 mIU/mL 08/12/21 17:13 Urine Color YELLOW 08/13/21 07:48 Urine Appearance CLEAR 08/13/21 07:48 Urine pH 5.5 (5.0-8.0) 08/13/21 07:48 Ur Specific [place] >= 1.030 (1.001-1.035) 08/13/21 07:48 Urine Protein NEGATIVE mg/dL (NEGATIVE) 08/13/21 07:48 Urine Glucose (UA) NEGATIVE mg/dL (NEGATIVE) 08/13/21 07:48 Urine Ketones NEGATIVE mg/dL (NEGATIVE) 08/13/21 07:48 Urine Occult Blood NEGATIVE (NEGATIVE) 08/13/21 07:48 Urine Nitrite NEGATIVE (NEGATIVE) 08/13/21 07:48 Urine Bilirubin NEGATIVE (NEGATIVE) 08/13/21 07:48 Urine Ictotest NEGATIVE 08/12/21 21:35 Urine Urobilinogen 0.2 EU/dL (<2.0) 08/13/21 07:48 Ur Leukocyte Esterase NEGATIVE (NEGATIVE) 08/13/21 07:48 Urine RBC 0-1 (0-2/HPF) 08/12/21 21:35 Urine WBC 0-2 (0-5/HPF) 08/12/21 21:35 Ur Epithelial Cells OCCASIONAL (NONE-FEW) 08/12/21 21:35 Calcium Oxalate Crystal OCCASIONAL (NEGATIVE) 08/12/21 21:35 Urine Bacteria FEW (NEGATIVE) 08/12/21 21:35 Urine Mucus LIGHT (NONE-MOD) 08/12/21 21:35 Omaira species DNA NEGATIVE (NEGATIVE) 08/12/21 20:47 Gardnerella DNA Probe NEGATIVE (NEGATIVE) 08/12/21 20:47 SARS-CoV-2 RNA (GUICHO) NEGATIVE (NEGATIVE) 08/12/21 21:05 Trichomonas DNA Probe NEGATIVE (NEGATIVE) 08/12/21 20:47 Blood Type O POSITIVE 08/13/21 08:05 Antibody Screen NEGATIVE 08/13/21 08:05 Crossmatch See Detail 08/13/21 08:05 - Allergies Allergies/Adverse Reactions: Allergies Allergy/AdvReac Type Severity Reaction Status Date / Time animal dander Allergy Hives Verified 08/12/21 16:28 barley Allergy Hives Verified 08/12/21 16:28 - Blood Blood Available: Yes Product(s) Available: PRBC - Acknowledgements Anesthesia Type Planned: General Anesthesia Pt an Appropriate Candidate for the Planned Anesthesia: Yes Alternatives and Risks of Anesthesia Discussed w Pt/Guardian: Yes Pt/Guardian Understands and Agrees with Anesthesia Plan: Yes PreAnesthesia Questionnaire - Past Health History Medical/Surgical History: Denies Medical/Surgical History HEENT History: Reports: Impaired Vision, Other (See Below) Other HEENT History: glasses, lower dental retainer Cardiovascular History: Reports: None Respiratory History: Reports: Asthma Gastrointestinal History: Reports: GERD, Irritable Bowel Syndrome Other Gastrointestinal History: EGD and colonscopy Genitourinary History: Reports: None [employer] History: Reports: Musculoskeletal History: Reports: Other (See Below) Other Musculoskeletal History: left shoulder pain Neurological History: Reports: Other (See Below) Other Neuro History: seizures until age 1 Psychiatric History: Reports: Anxiety Endocrine/Metabolic History: Reports: Obesity/BMI 30+ Hematologic History: Reports: None Immunologic History: Reports: None Oncologic (Cancer) History: Reports: None Dermatologic History: Reports: None - Infectious Disease History Infectious Disease History: Reports: Chicken Pox, Measles, Novel Coronavirus Other Infectious Disease History: COVID - Past Surgical History Head Surgeries/Procedures: Reports: None HEENT Surgical History: Reports: Oral Surgery Cardiovascular Surgical History: Reports: None Respiratory Surgical History: Reports: None GI Surgical History: Reports: Cholecystectomy, Colonoscopy Female Surgical History: Reports: None Endocrine Surgical History: Reports: None Neurological Surgical History: Reports: None Musculoskeletal Surgical History: Reports: None Oncologic Surgical History: Reports: None Dermatological Surgical History: Reports: None - SUBSTANCE USE Tobacco Use Status *Q: Never Tobacco User Recreational Drug Use History: No - HOME MEDS Home Medications: Home Meds Albuterol Sulfate [Proair Hfa] 1 puff INH ASDIRECTED PRN 10/05/15 [History] Ipratropium/Albuterol Sulfate [Iprat-Albut 0.5-3(2.5) mg/3 ml] 1 inhalation NEB ASDIRECTED PRN 07/03/20 [History] - CURRENT (IN HOUSE) MEDS Current Meds: Current Medications Albuterol (Albuterol 0.083% 2.5 Mg/3 Ml Neb Soln) 2.5 mg NEB Q6HRRT PRN PRN Reason: Wheezing Sodium Chloride (Normal Saline) 1,000 mls @ 125 mls/hr IV ASDIRECTED RISHI Last Admin: 08/13/21 09:19 Dose: 125 mls/hr Documented by: Ceftriaxone Sodium/Dextrose 1 (gm/ Premix) 50 mls @ 100 mls/hr IV Q24H RISHI Last Admin: 08/13/21 09:25 Dose: 100 mls/hr Documented by: Morphine Sulfate (Morphine 2 Mg/Ml Syringe) 2 mg IVPUSH Q4H PRN PRN Reason: Pain Sodium Chloride (Sodium Chloride 0.9% 10 Ml Syringe) 10 ml FLUSH ASDIRECTED PRN PRN Reason: Keep Vein Open Last Admin: 08/12/21 17:08 Dose: 10 ml Documented by: Sodium Chloride (Sodium Chloride 0.9% 2.5 Ml Syringe) 2.5 ml FLUSH ASDIRECTED PRN PRN Reason: Keep Vein Open Last Admin: 08/12/21 17:06 Dose: 2.5 ml Documented by: Discontinued Medications Calcium Gluconate (Calcium Gluconate 10% 1 Gm/10 Ml Sdv) Confirm Administered Dose 1 gm .ROUTE .STK-MED ONE Stop: 08/13/21 11:01 Dexamethasone (Dexamethasone 4 Mg/Ml 5 Ml Mdv) Confirm Administered Dose 20 mg .ROUTE .STK-MED ONE Stop: 08/13/21 09:58 Fentanyl (Fentanyl 100 Mcg/2 Ml Sdv) Confirm Administered Dose 100 mcg .ROUTE .STK-MED ONE Stop: 08/13/21 09:59 Sodium Chloride (Normal Saline) 1,000 mls @ 999 mls/hr IV STAT ONE Stop: 08/12/21 17:30 Last Admin: 08/12/21 17:05 Dose: 999 mls/hr Documented by: Sodium Chloride (Normal Saline) 1,000 mls @ 999 mls/hr IV STAT ONE Stop: 08/12/21 20:58 Last Admin: 08/12/21 20:03 Dose: 999 mls/hr Documented by: Sodium Chloride (Normal Saline) 1,000 mls @ 999 mls/hr IV STAT ONE Stop: 08/12/21 21:38 Last Admin: 08/12/21 21:27 Dose: 999 mls/hr Documented by: Sodium Chloride (Normal Saline) 1,000 mls @ 999 mls/hr IV STAT ONE Stop: 08/12/21 22:46 Last Admin: 08/12/21 22:21 Dose: 999 mls/hr Documented by: Ceftriaxone Sodium 1 gm/ (Sodium Chloride) 50 mls @ 100 mls/hr IV Q24H RISHI Ceftriaxone Sodium 1 gm/ (Sodium Chloride) 50 mls @ 100 mls/hr IV Q24H RISHI Sodium Chloride (Normal Saline) 1,000 mls @ 999 mls/hr IV .Bolus ONE Stop: 08/13/21 08:19 Last Admin: 08/13/21 09:18 Dose: 999 mls/hr Documented by: Bupivacaine HCl/Epinephrine Bitart (Sensorc Mpf 0.25%-Epi [id number]) Confirm Administered Dose 30 mls @ as directed .ROUTE .STK-MED ONE Stop: 08/13/21 11:12 Ketorolac Tromethamine (Ketorolac 30 Mg/Ml Sdv) 30 mg IVPUSH ONETIME ONE Stop: 08/12/21 16:31 Last Admin: 08/12/21 17:07 Dose: 30 mg Documented by: Lidocaine (Lidocaine 2% 5 Ml Sdv) Confirm Administered Dose 5 ml .ROUTE .STK-MED ONE Stop: 08/13/21 09:58 Midazolam HCl (Midazolam 1 Mg/Ml 2 Ml Sdv) Confirm Administered Dose 2 mg .ROUTE .STK-MED ONE Stop: 08/13/21 09:59 Miscellaneous Medication (Phenylephrine Hcl In 0.9% Nacl 1 Mg/10 Ml Syringe) Confirm Administered Dose 1 mg .ROUTE .STK-MED ONE Stop: 08/13/21 11:00 Ondansetron HCl (Ondansetron 4 Mg/2 Ml Sdv) 4 mg IVPUSH ONETIME ONE Stop: 08/12/21 16:31 Last Admin: 08/12/21 17:05 Dose: 4 mg Documented by: Ondansetron HCl (Ondansetron 4 Mg/2 Ml Sdv) Confirm Administered Dose 4 mg .ROUTE .STK-MED ONE Stop: 08/13/21 09:58 Propofol (Propofol 200 Mg/20 Ml Sdv) Confirm Administered Dose 200 mg .ROUTE .STK-MED ONE Stop: 08/13/21 10:00 Rocuronium Evans (Rocuronium Evans 50 Mg/5 Ml Syringe) Confirm Administered Dose 50 mg .ROUTE .STK-MED ONE Stop: 08/13/21 09:58 Ropivacaine (Ropivacaine 0.5% 5 Mg/Ml 30 Ml Sdv) Confirm Administered Dose 30 ml .ROUTE .STK-MED ONE Stop: 08/13/21 11:12 Sugammadex Sodium (Sugammadex Sodium 200 Mg/2 Ml Vial) Confirm Administered Dose 200 mg .ROUTE .STK-MED ONE Stop: 08/13/21 09:58
--- NOTE | 2021-08-13 11:31 | PCM.SN.2 ---
Time Documentation Central Line Insertion - Central Line Insertion Site: internal jugular (L) Prep: CDC/MBT Guidelines, Sterile Drapes, Chlorhexidine Lumen: triple Gauge: 7Fr Local Anesthesia - Lidocaine (Xylocaine): 1% Plain Local Anesthetic Volume: 2cc Ultrasound guided: No Micropuncture kit used: Yes CL Complications: No Secured with suture: Yes Post placement confirmation: CXR, all ports aspirated, all ports flushed CXR post-procedure: no pneumothorax Dressing applied: by provider
--- NOTE | 2021-08-13 12:04 | PCM.POSTAN ---
POST ANESTHESIA ASSESSMENT - MENTAL STATUS Mental Status: Somnolent - VITAL SIGNS Vital Signs: Last Vital Signs Temp 98.2 F 08/13/21 09:55 Pulse 118 H 08/13/21 09:55 Resp 30 H 08/13/21 09:55 BP 107/59 L 08/13/21 09:55 Pulse Ox 98 08/13/21 09:55 Orthostatic Blood Pressure [ 102/65 Supine] Orthostatic Blood Pressure [ 77/23 Sitting] - RESPIRATORY Respiratory Status: Respiratory Rate WNL, Airway Patent, O2 Saturation Stable - CARDIOVASCULAR CV Status: Pulse Rate WNL, Blood Pressure Stable - GASTROINTESTINAL GI Status: No Symptoms - POST OP HYDRATION Hydration Status: Adequate & Stable
--- NOTE | 2021-08-13 12:05 | PCM48HPAN ---
Post Anesthesia Note - EVALUATION WITHIN 48HRS OF ANESTHETIC Vital Signs in Normal Range: Yes Patient Participated in Evaluation: Yes Respiratory Function Stable: Yes Airway Patent: Yes Cardiovascular Function Stable: Yes Hydration Status Stable: Yes Pain Control Satisfactory: Yes Nausea and Vomiting Control Satisfactory: Yes Mental Status Recovered: Yes Vital Signs: Last Vital Signs Temp 98.2 F 08/13/21 09:55 Pulse 118 H 08/13/21 09:55 Resp 30 H 08/13/21 09:55 BP 107/59 L 08/13/21 09:55 Pulse Ox 98 08/13/21 09:55 Orthostatic Blood Pressure [ 102/65 Supine] Orthostatic Blood Pressure [ 77/23 Sitting]
--- NOTE | 2021-08-13 12:08 | PCM.SN.2 ---
- Free Text/Narrative Note: Anesthesia Start: 1200 Anesthesia Stop: 1203 Following conclusion of exploratory laparotomy for ruptured ectopic, a block time out was perfromed and Bilateral US guided TAPS blocks were placed usinf sterile technique and a 22g,6 inch b fontenot echogenic needle. Good US visualization was obtained and patient received 25cc per side of o.5% Naropin with ).25% Bupiv (with epi) in equal volumes. Patient tolerated the procedure well. No apparent complications. Jadon Crockett MD Time Documentation
--- NOTE | 2021-08-13 12:14 | PCM.OPNOTE ---
- General Post-Op/Procedure Note Date of Surgery/Procedure: 08/13/21 Operative Procedure(s): Exploratory laparotomy, exacuation of hemoperitoneum, left salpingectomy Findings: Dilated left fallopian tube with ectopic , ruptured posteriorly. Hemoperitoneum of 1500cc. Uterus with normal configuration, does not appear to be bicornuate. Normal appearing right fallopian tubes and bilateral ovaries. Pre Op Diagnosis: 1. Suspected rutpured cornual ectopic Post-Op Diagnosis: 1. Ruptured left fallopian tube ectopic Anesthesia Technique: General LMA Primary Surgeon: Dane Liu Anesthesia Provider: Jadon Crockett Syrup Blender: Greta Price Pathology: left fallopian tube with ectopic Fluid Replacement, Intraop: 1,500 (4u of pRBC) Output, Urine Amount: 200 EBL in mLs: 1,500 Complications: none Condition: Good Free Text/Narrative:: Intake & Output 08/12/21 08/13/21 08/13/21 22:59 06:59 14:59 Intake Total 120 100 Output Total 525 Balance 120 -425
[2021-08-13] MEDS: Morphine 2 MG/ML SYRINGE IVPUSH PRN ×2 (16:38→20:22)
[2021-08-13] MEDS: Albuterol 0.083% 2.5 MG/3 ML Neb Soln NEB PRN (20:17)
[2021-08-13] MEDS ORDERED: Ketorolac 30 MG/ML SDV IVPUSH PRN (21:10)
[2021-08-13] MEDS ORDERED: Promethazine 25 MG/ML SDV IM PRN (21:10)
[2021-08-14] MEDS: Acetaminophen/oxyCODONE 325-5 MG Tab PO PRN ×4 (00:50→20:49)
--- NOTE | 2021-08-14 02:57 | OR ---
SURGEON: Dane Liu MD DATE OF PROCEDURE: 08/13/2021 INDICATION FOR PROCEDURE: A 31-year-old, G1, P0, approximately 6 to 8 weeks by last menstrual period, presenting with suspected ruptured ectopic . The patient initially presented the night before with abdominal pain, was evaluated in the ER with a hemoglobin of 12, and an ultrasound which reported an intrauterine at 6 weeks of gestation with a possible her rate and HCG 160. The patient was initially admitted to Medicine to evaluate for the cause of the abdominal pain. This morning, her hemoglobin had suddenly dropped to 7. She denies any vaginal bleeding and was briefly hypotensive, but then was normotensive. Due to the unclear presentation and suspected intraperitoneal bleeding, but unclear source of the bleeding, a CT of the abdomen and pelvis was obtained, which showed hemoperitoneum and possible uterine rupture. 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 The patient also began to have more signs of an acute abdomen and severe pain. She was given 1 unit of packed red blood cells. I discussed with the patient that with the imaging and her clinical picture, it is likely she has a ruptured ectopic . However, it is very unclear exactly where the is located based on the imaging; therefore, would recommend proceeding with an exploratory laparotomy to evaluate the source of bleeding and concerns for possible cornual ectopic . Discussed with the patient possible bilateral or unilateral salpingectomy, repair of uterine rupture or hysterectomy, and the patient was agreeable to proceed. PREOPERATIVE DIAGNOSIS: Suspected ruptured ectopic . POSTOPERATIVE DIAGNOSIS: Ruptured ectopic in the left fallopian tube. PROCEDURE PERFORMED: 1. Exploratory laparotomy. 2. Evacuation of hemoperitoneum. 3. Left salpingectomy. ANESTHESIA: General anesthesia. ANESTHESIOLOGIST: Dr. Jadon Crockett. FINDINGS: Hemoperitoneum of 1.5 L. Normal-appearing uterus, did not have a bicornuate configuration. Normal-appearing bilateral ovaries and right fallopian tube. The left fallopian tube was significantly dilated with the ectopic , which had ruptured on the posterior side. ESTIMATED BLOOD LOSS: 1.5 L of hemoperitoneum. URINE OUTPUT: 200 mL. DESCRIPTION OF PROCEDURE: The procedure was discussed with the patient; risks include bleeding, infection, DVTs, and injury to surrounding organs including bladder, bowel, and ureters; the patient expressed understanding, consent signed. The patient was brought to the operating room. She received ceftriaxone preop. She was given SCDs. General anesthesia was applied. Correa catheter was placed. She had already received 1 unit of packed red blood cells. The abdomen was prepped with chlorhexidine in a sterile fashion, and the vagina prepped with Betadine. She was then draped in a sterile fashion. Her legs were placed in dorsal lithotomy position. A sponge was placed in the vagina to help manipulation. A Pfannenstiel incision was made with a scalpel and dissected down to fascia. Sites of bleeding were noted and cauterized. The fascia was cleared of subcutaneous tissue. It was incised in the midline and extended laterally with cautery. Isauro clamps were placed on the superior fascial edge. The rectus muscles were from the fascia by blunt dissection and then using Arias scissors. The rectus muscles were from the inferior edge in the same fashion. The rectus muscle was in the midline and the peritoneum was identified and entered bluntly. Hemoperitoneum was noted immediately upon entry. A suction was used to remove the hemoperitoneum and clots were evacuated. There was in total 1.5 L of blood in the abdomen. The peritoneum was then bluntly stretched. The O'Hernandez-O'Miller retractor was placed in the peritoneal cavity. Moist laps were placed in the abdomen to push back the bowel. The pelvis was carefully examined and a dilated left fallopian tube was noted, about 3 cm size, that appears to be ruptured posteriorly with a small amount of bleeding. The uterus was normal sized and did not appear to have a bicornuate configuration. The right fallopian tube and both ovaries were normal appearing. Joe clamps were used to clamp along the left fallopian tube and ectopic , along the mesosalpinx, careful to avoid the ovary and round ligaments. Arias scissors was used to separate the tube, and pedicles were sutured with 2-0 Vicryl. Two additional bites were made along the mesosalpinx in a similar fashion, and then the fallopian tube was transected at the cornua. Hemostasis was confirmed after the salpingectomy. The pelvis was irrigated with copious amounts of fluid, and no further bleeding was seen. The laps were then removed from the abdomen, and the retractor removed from the peritoneal cavity. The peritoneum was brought together with hemostats and reapproximated with 2-0 Vicryl in a running fashion. The rectus muscles were reapproximated with mattress stitches. The rectus muscles were carefully examined and was hemostatic. Bleeding areas were cauterized. The fascia was closed with 0 Vicryl suture in a running fashion. The subcutaneous layer was irrigated and the bleeding areas cauterized. The subcutaneous layer was brought together with 3-0 plain suture in a running fashion. The skin was closed with 3-0 Monocryl on a Kong needle. The patient was given 4 units total of red blood cells. She was initially hypotensive and required some pressors with improvement with stabilized blood pressures for the remainder of the case. She was awakened from anesthesia without difficulty and brought to the recovery room in stable condition. ABRAHAM ULRICH /[id number]
[2021-08-14] MEDS: Albuterol 0.083% 2.5 MG/3 ML Neb Soln NEB PRN ×3 (04:47→20:39)
[2021-08-14] MEDS: Morphine 2 MG/ML SYRINGE IVPUSH PRN (04:48)
[2021-08-14 07:05] LABS: BLOOD UREA NITROGEN,BUN 5 mg/dL (7.0-18.0); CARBON DIOXIDE,CO2 25.3 mmol/L (21.0-32.0); CHLORIDE,CL 110 mmol/L (98-107); GLUCOSE RANDOM 109 mg/dL (74-106); SODIUM,NA 144 mmol/L (136-145)
--- NOTE | 2021-08-14 10:38 | PCM.PN ---
- General Info Date of Service: 08/14/21 Functional Status: Reports: Pain Controlled, Tolerating Diet, Other (Has not ambulated. Wylie in place with good UO) - Review of Systems General: Reports: Fatigue HEENT: Reports: No Symptoms Pulmonary: Reports: No Symptoms Cardiovascular: Reports: No Symptoms Gastrointestinal: Reports: No Symptoms Genitourinary: Reports: No Symptoms Musculoskeletal: Reports: No Symptoms Skin: Reports: No Symptoms Neurological: Reports: No Symptoms Psychiatric: Reports: No Symptoms - Patient Data Vitals - Most Recent: Last Vital Signs Temp 36.9 C 08/14/21 08:00 Pulse 87 08/14/21 03:59 Resp 16 08/14/21 08:00 BP 98/53 L 08/14/21 08:00 Pulse Ox 92 L 08/14/21 08:00 Orthostatic Blood Pressure [ 102/65 Supine] Orthostatic Blood Pressure [ 77/23 Sitting] Weight - Most Recent: 169 lb 14.4 oz I&O - Last 24 Hours: Intake & Output 08/13/21 08/14/21 08/14/21 22:59 06:59 14:59 Intake Total 850 Output Total 1850 Balance -1000 Lab Results Last 24 Hours: Laboratory Results - last 24 hr 08/13/21 08/13/21 08/13/21 Range/Units 08:05 12:23 12:23 WBC 21.93 H (4.0-11.0) K/uL RBC 3.78 L (4.30-5.90) M/uL Hgb 11.6 L (12.0-16.0) g/dL Hct 33.1 L (36.0-46.0) % MCV 87.6 (80.0-98.0) fL MCH 30.7 (27.0-32.0) pg MCHC 35.0 (31.0-37.0) g/dL RDW Std Deviation 46.0 (28.0-62.0) fl RDW Coeff of Jessi 14 (11.0-15.0) % Plt Count 211 (150-400) K/uL MPV 10.80 (7.40-12.00) fL Neut % (Auto) (48.0-80.0) % Lymph % (Auto) (16.0-40.0) % [place] % (Auto) (0.0-15.0) % Eos % (Auto) (0.0-7.0) % Baso % (Auto) (0.0-1.5) % Neut # (Auto) (1.4-5.7) K/uL Lymph # (Auto) (0.6-2.4) K/uL [place] # (Auto) (0.0-0.8) K/uL Eos # (Auto) (0.0-0.7) K/uL Baso # (Auto) (0.0-0.1) K/uL Nucleated RBC % 0.0 /100WBC Nucleated RBCs # 0 K/uL INR 1.04 APTT 23.5 (18.6-31.3) SEC Fibrinogen (215-411) mg/dL Sodium (136-145) mmol/L Potassium (3.5-5.1) mmol/L Chloride (98-107) mmol/L Carbon Dioxide (21.0-32.0) mmol/L BUN (7.0-18.0) mg/dL Creatinine (0.6-1.0) mg/dL Est Cr Clr Drug Dosing mL/min Estimated GFR (MDRD) ml/min Glucose (74-106) mg/dL Calcium (8.5-10.1) mg/dL Total Bilirubin (0.2-1.0) mg/dL AST (15-37) IU/L ALT (14-63) IU/L Alkaline Phosphatase (46-116) U/L Total Protein (6.4-8.2) g/dL Albumin (3.4-5.0) g/dL Globulin (2.6-4.0) g/dL Albumin/Globulin Ratio (0.9-1.6) Blood Type O POSITIVE Antibody Screen NEGATIVE Crossmatch See Detail 08/13/21 08/13/21 08/14/21 Range/Units 12:23 16:34 05:43 WBC 16.53 H (4.0-11.0) K/uL RBC 3.88 L (4.30-5.90) M/uL Hgb 11.7 L (12.0-16.0) g/dL Hct 33.5 L (36.0-46.0) % MCV 86.3 (80.0-98.0) fL MCH 30.2 (27.0-32.0) pg MCHC 34.9 (31.0-37.0) g/dL RDW Std Deviation 45.8 (28.0-62.0) fl RDW Coeff of Jessi 15 (11.0-15.0) % Plt Count 181 (150-400) K/uL MPV 11.20 (7.40-12.00) fL Neut % (Auto) (48.0-80.0) % Lymph % (Auto) (16.0-40.0) % [place] % (Auto) (0.0-15.0) % Eos % (Auto) (0.0-7.0) % Baso % (Auto) (0.0-1.5) % Neut # (Auto) (1.4-5.7) K/uL Lymph # (Auto) (0.6-2.4) K/uL [place] # (Auto) (0.0-0.8) K/uL Eos # (Auto) (0.0-0.7) K/uL Baso # (Auto) (0.0-0.1) K/uL Nucleated RBC % 0.0 /100WBC Nucleated RBCs # 0 K/uL INR APTT (18.6-31.3) SEC Fibrinogen 240 (215-411) mg/dL Sodium 144 (136-145) mmol/L Potassium 4.0 (3.5-5.1) mmol/L Chloride 110 H (98-107) mmol/L Carbon Dioxide 25.3 (21.0-32.0) mmol/L BUN 5 L (7.0-18.0) mg/dL Creatinine 0.6 (0.6-1.0) mg/dL Est Cr Clr Drug Dosing 95.79 mL/min Estimated GFR (MDRD) > 60.0 ml/min Glucose 109 H (74-106) mg/dL Calcium 7.0 L (8.5-10.1) mg/dL Total Bilirubin 0.5 (0.2-1.0) mg/dL AST 21 (15-37) IU/L ALT 24 (14-63) IU/L Alkaline Phosphatase 42 L (46-116) U/L Total Protein 5.0 L (6.4-8.2) g/dL Albumin 2.2 L (3.4-5.0) g/dL Globulin 2.8 (2.6-4.0) g/dL Albumin/Globulin Ratio 0.8 L (0.9-1.6) Blood Type Antibody Screen Crossmatch 08/14/21 Range/Units 05:43 WBC 11.11 H (4.0-11.0) K/uL RBC 3.29 L (4.30-5.90) M/uL Hgb 9.9 L (12.0-16.0) g/dL Hct 28.7 L (36.0-46.0) % MCV 87.2 (80.0-98.0) fL MCH 30.1 (27.0-32.0) pg MCHC 34.5 (31.0-37.0) g/dL RDW Std Deviation 48.1 (28.0-62.0) fl RDW Coeff of Jessi 15 (11.0-15.0) % Plt Count 180 (150-400) K/uL MPV 10.90 (7.40-12.00) fL Neut % (Auto) 68.3 (48.0-80.0) % Lymph % (Auto) 14.5 L (16.0-40.0) % [place] % (Auto) 17.0 H (0.0-15.0) % Eos % (Auto) 0.1 (0.0-7.0) % Baso % (Auto) 0.1 (0.0-1.5) % Neut # (Auto) 7.6 H (1.4-5.7) K/uL Lymph # (Auto) 1.6 (0.6-2.4) K/uL [place] # (Auto) 1.9 H (0.0-0.8) K/uL Eos # (Auto) 0.0 (0.0-0.7) K/uL Baso # (Auto) 0.0 (0.0-0.1) K/uL Nucleated RBC % 0.0 /100WBC Nucleated RBCs # 0 K/uL INR APTT (18.6-31.3) SEC Fibrinogen (215-411) mg/dL Sodium (136-145) mmol/L Potassium (3.5-5.1) mmol/L Chloride (98-107) mmol/L Carbon Dioxide (21.0-32.0) mmol/L BUN (7.0-18.0) mg/dL Creatinine (0.6-1.0) mg/dL Est Cr Clr Drug Dosing mL/min Estimated GFR (MDRD) ml/min Glucose (74-106) mg/dL Calcium (8.5-10.1) mg/dL Total Bilirubin (0.2-1.0) mg/dL AST (15-37) IU/L ALT (14-63) IU/L Alkaline Phosphatase (46-116) U/L Total Protein (6.4-8.2) g/dL Albumin (3.4-5.0) g/dL Globulin (2.6-4.0) g/dL Albumin/Globulin Ratio (0.9-1.6) Blood Type Antibody Screen Crossmatch Med Orders - Current: Current Medications Albuterol (Albuterol 0.083% 2.5 Mg/3 Ml Neb Soln) 2.5 mg NEB Q6HRRT PRN PRN Reason: Wheezing Last Admin: 08/14/21 04:47 Dose: 2.5 mg Documented by: Sodium Chloride (Normal Saline) 1,000 mls @ 125 mls/hr IV ASDIRECTED RISHI Last Admin: 08/13/21 13:37 Dose: 125 mls/hr Documented by: Ketorolac Tromethamine (Ketorolac 30 Mg/Ml Sdv) 30 mg IVPUSH Q6H PRN PRN Reason: Pain (severe 7-10) Stop: 08/18/21 21:10 Morphine Sulfate (Morphine 2 Mg/Ml Syringe) 2 mg IVPUSH Q4H PRN PRN Reason: Pain Last Admin: 08/14/21 04:48 Dose: 2 mg Documented by: Ondansetron HCl (Ondansetron 4 Mg/2 Ml Sdv) 4 mg IVPUSH Q6H PRN PRN Reason: Nausea/Vomiting Oxycodone/Acetaminophen (Acetaminophen/Oxycodone 325-5 Mg Tab) 1 tab PO Q4H PRN PRN Reason: Pain (moderate 4-6) Oxycodone/Acetaminophen (Acetaminophen/Oxycodone 325-5 Mg Tab) 2 tab PO Q4H PRN PRN Reason: Pain (moderate 4-6) Last Admin: 08/14/21 08:25 Dose: 2 tab Documented by: Promethazine HCl (Promethazine 25 Mg/Ml Sdv) 25 mg IM Q6H PRN PRN Reason: Nausea/Vomiting Sodium Chloride (Sodium Chloride 0.9% 10 Ml Syringe) 10 ml FLUSH ASDIRECTED PRN PRN Reason: Keep Vein Open Last Admin: 08/12/21 17:08 Dose: 10 ml Documented by: Sodium Chloride (Sodium Chloride 0.9% 2.5 Ml Syringe) 2.5 ml FLUSH ASDIRECTED PRN PRN Reason: Keep Vein Open Last Admin: 08/12/21 17:06 Dose: 2.5 ml Documented by: Discontinued Medications Albuterol (Albuterol 0.083% 2.5 Mg/3 Ml Neb Soln) 2.5 mg NEB ONETIME PRN PRN Reason: Wheezing Calcium Gluconate (Calcium Gluconate 10% 1 Gm/10 Ml Sdv) Confirm Administered Dose 1 gm .ROUTE .STK-MED ONE Stop: 08/13/21 11:01 Dexamethasone (Dexamethasone 4 Mg/Ml 5 Ml Mdv) Confirm Administered Dose 20 mg .ROUTE .STK-MED ONE Stop: 08/13/21 09:58 Droperidol (Droperidol 5 Mg/2 Ml Sdv) 0.625 mg IVPUSH ONETIME PRN PRN Reason: Nausea/Vomiting Fentanyl (Fentanyl 100 Mcg/2 Ml Sdv) Confirm Administered Dose 100 mcg .ROUTE .STK-MED ONE Stop: 08/13/21 09:59 Fentanyl (Fentanyl 100 Mcg/2 Ml Sdv) 50 mcg IVPUSH Q5M PRN PRN Reason: Pain (mild 1-3) Hydromorphone HCl (Hydromorphone 1 Mg/Ml Syringe) 1 mg IVPUSH Q10M PRN PRN Reason: Pain (moderate 4-6) Last Admin: 08/13/21 12:41 Dose: 1 mg Documented by: Sodium Chloride (Normal Saline) 1,000 mls @ 999 mls/hr IV STAT ONE Stop: 08/12/21 17:30 Last Admin: 08/12/21 17:05 Dose: 999 mls/hr Documented by: Sodium Chloride (Normal Saline) 1,000 mls @ 999 mls/hr IV STAT ONE Stop: 08/12/21 20:58 Last Admin: 08/12/21 20:03 Dose: 999 mls/hr Documented by: Sodium Chloride (Normal Saline) 1,000 mls @ 999 mls/hr IV STAT ONE Stop: 08/12/21 21:38 Last Admin: 08/12/21 21:27 Dose: 999 mls/hr Documented by: Sodium Chloride (Normal Saline) 1,000 mls @ 999 mls/hr IV STAT ONE Stop: 08/12/21 22:46 Last Admin: 08/12/21 22:21 Dose: 999 mls/hr Documented by: Ceftriaxone Sodium 1 gm/ (Sodium Chloride) 50 mls @ 100 mls/hr IV Q24H [facility] Last Admin: 08/13/21 16:48 Dose: Not Given Documented by: Ceftriaxone Sodium 1 gm/ (Sodium Chloride) 50 mls @ 100 mls/hr IV Q24H [facility] Last Admin: 08/13/21 16:48 Dose: Not Given Documented by: Ceftriaxone Sodium/Dextrose 1 (gm/ Premix) 50 mls @ 100 mls/hr IV Q24H [facility] Last Admin: 08/13/21 09:25 Dose: 100 mls/hr Documented by: Sodium Chloride (Normal Saline) 1,000 mls @ 999 mls/hr IV .Bolus ONE Stop: 08/13/21 08:19 Last Admin: 08/13/21 09:18 Dose: 999 mls/hr Documented by: Bupivacaine HCl/Epinephrine Bitart (Sensorc Mpf 0.25%-Epi [id number]) Confirm Administered Dose 30 mls @ as directed .ROUTE .STK-MED ONE Stop: 08/13/21 11:12 Ketorolac Tromethamine (Ketorolac 30 Mg/Ml Sdv) 30 mg IVPUSH ONETIME ONE Stop: 08/12/21 16:31 Last Admin: 08/12/21 17:07 Dose: 30 mg Documented by: Lidocaine (Lidocaine 2% 5 Ml Sdv) Confirm Administered Dose 5 ml .ROUTE .STK-MED ONE Stop: 08/13/21 09:58 Metoclopramide HCl (Metoclopramide 10 Mg/2 Ml Sdv) 10 mg IVPUSH ONETIME PRN PRN Reason: Nausea/Vomiting Midazolam HCl (Midazolam 1 Mg/Ml 2 Ml Sdv) Confirm Administered Dose 2 mg .ROUTE .STK-MED ONE Stop: 08/13/21 09:59 Miscellaneous Medication (Phenylephrine Hcl In 0.9% Nacl 1 Mg/10 Ml Syringe) Con firm Administered Dose 1 mg .ROUTE .STK-MED ONE Stop: 08/13/21 11:00 Morphine Sulfate (Morphine 2 Mg/Ml Syringe) 2 mg IVPUSH Q10M PRN PRN Reason: Pain (severe 7-10) Naloxone HCl (Naloxone 0.4 Mg/Ml Sdv) 0.1 mg IVPUSH ASDIRECTED PRN PRN Reason: Respiratory Depression Ondansetron HCl (Ondansetron 4 Mg/2 Ml Sdv) 4 mg IVPUSH ONETIME ONE Stop: 08/12/21 16:31 Last Admin: 08/12/21 17:05 Dose: 4 mg Documented by: Ondansetron HCl (Ondansetron 4 Mg/2 Ml Sdv) Confirm Administered Dose 4 mg .ROUT E .STK-MED ONE Stop: 08/13/21 09:58 Ondansetron HCl (Ondansetron 4 Mg/2 Ml Sdv) 4 mg IVPUSH ONETIME PRN PRN Reason: Nausea/Vomiting Propofol (Propofol 200 Mg/20 Ml Sdv) Confirm Administered Dose 200 mg .ROUTE .STK-MED ONE Stop: 08/13/21 10:00 Rocuronium [place] (Rocuronium [place] 50 Mg/5 Ml Syringe) Confirm Administered Dose 50 mg .ROUTE .STK-MED ONE Stop: 08/13/21 09:58 Ropivacaine (Ropivacaine 0.5% 5 Mg/Ml 30 Ml Sdv) Confirm Administered Dose 30 ml .ROUTE .STK-MED ONE Stop: 08/13/21 11:12 Sugammadex Sodium (Sugammadex Sodium 200 Mg/2 Ml Vial) Confirm Administered Dose 200 mg .ROUTE .STK-MED ONE Stop: 08/13/21 09:58 - Exam General: Alert, Oriented, Cooperative, No Acute Distress HEENT: Pupils Equal, Pupils Reactive, EOMI Neck: Supple, Trachea Midline, No JVD Lungs: Clear to Auscultation, Normal Respiratory Effort Cardiovascular: Regular Rate, Regular Rhythm, No Murmurs GI/Abdominal Exam: Soft, Non-Tender, No Distention Back Exam: Normal Inspection, Full Range of Motion Extremities: Normal Inspection, Normal Range of Motion, Non-Tender, No Pedal Edema Skin: Warm, Dry, Intact Wound/Incisions: Dressing Dry and Intact Neurological: No New Focal Deficit Psy/Mental Status: Alert, Normal Affect, Normal Mood - Patient Data Lab Results Last 24 hrs: Laboratory Results - last 24 hr 08/13/21 08/13/21 08/13/21 Range/Units 08:05 12:23 12:23 WBC 21.93 H (4.0-11.0) K/uL RBC 3.78 L (4.30-5.90) M/uL Hgb 11.6 L (12.0-16.0) g/dL Hct 33.1 L (36.0-46.0) % MCV 87.6 (80.0-98.0) fL MCH 30.7 (27.0-32.0) pg MCHC 35.0 (31.0-37.0) g/dL RDW Std Deviation 46.0 (28.0-62.0) fl RDW Coeff of Jessi 14 (11.0-15.0) % Plt Count 211 (150-400) K/uL MPV 10.80 (7.40-12.00) fL Neut % (Auto) (48.0-80.0) % Lymph % (Auto) (16.0-40.0) % [place] % (Auto) (0.0-15.0) % Eos % (Auto) (0.0-7.0) % Baso % (Auto) (0.0-1.5) % Neut # (Auto) (1.4-5.7) K/uL Lymph # (Auto) (0.6-2.4) K/uL [place] # (Auto) (0.0-0.8) K/uL Eos # (Auto) (0.0-0.7) K/uL Baso # (Auto) (0.0-0.1) K/uL Nucleated RBC % 0.0 /100WBC Nucleated RBCs # 0 K/uL INR 1.04 APTT 23.5 (18.6-31.3) SEC Fibrinogen (215-411) mg/dL Sodium (136-145) mmol/L Potassium (3.5-5.1) mmol/L Chloride (98-107) mmol/L Carbon Dioxide (21.0-32.0) mmol/L BUN (7.0-18.0) mg/dL Creatinine (0.6-1.0) mg/dL Est Cr Clr Drug Dosing mL/min Estimated GFR (MDRD) ml/min Glucose (74-106) mg/dL Calcium (8.5-10.1) mg/dL Total Bilirubin (0.2-1.0) mg/dL AST (15-37) IU/L ALT (14-63) IU/L Alkaline Phosphatase (46-116) U/L Total Protein (6.4-8.2) g/dL Albumin (3.4-5.0) g/dL Globulin (2.6-4.0) g/dL Albumin/Globulin Ratio (0.9-1.6) Blood Type O POSITIVE Antibody Screen NEGATIVE Crossmatch See Detail 08/13/21 08/13/21 08/14/21 Range/Units 12:23 16:34 05:43 WBC 16.53 H (4.0-11.0) K/uL RBC 3.88 L (4.30-5.90) M/uL Hgb 11.7 L (12.0-16.0) g/dL Hct 33.5 L (36.0-46.0) % MCV 86.3 (80.0-98.0) fL MCH 30.2 (27.0-32.0) pg MCHC 34.9 (31.0-37.0) g/dL RDW Std Deviation 45.8 (28.0-62.0) fl RDW Coeff of Jessi 15 (11.0-15.0) % Plt Count 181 (150-400) K/uL MPV 11.20 (7.40-12.00) fL Neut % (Auto) (48.0-80.0) % Lymph % (Auto) (16.0-40.0) % [place] % (Auto) (0.0-15.0) % Eos % (Auto) (0.0-7.0) % Baso % (Auto) (0.0-1.5) % Neut # (Auto) (1.4-5.7) K/uL Lymph # (Auto) (0.6-2.4) K/uL [place] # (Auto) (0.0-0.8) K/uL Eos # (Auto) (0.0-0.7) K/uL Baso # (Auto) (0.0-0.1) K/uL Nucleated RBC % 0.0 /100WBC Nucleated RBCs # 0 K/uL INR APTT (18.6-31.3) SEC Fibrinogen 240 (215-411) mg/dL Sodium 144 (136-145) mmol/L Potassium 4.0 (3.5-5.1) mmol/L Chloride 110 H (98-107) mmol/L Carbon Dioxide 25.3 (21.0-32.0) mmol/L BUN 5 L (7.0-18.0) mg/dL Creatinine 0.6 (0.6-1.0) mg/dL Est Cr Clr Drug Dosing 95.79 mL/min Estimated GFR (MDRD) > 60.0 ml/min Glucose 109 H (74-106) mg/dL Calcium 7.0 L (8.5-10.1) mg/dL Total Bilirubin 0.5 (0.2-1.0) mg/dL AST 21 (15-37) IU/L ALT 24 (14-63) IU/L Alkaline Phosphatase 42 L (46-116) U/L Total Protein 5.0 L (6.4-8.2) g/dL Albumin 2.2 L (3.4-5.0) g/dL Globulin 2.8 (2.6-4.0) g/dL Albumin/Globulin Ratio 0.8 L (0.9-1.6) Blood Type Antibody Screen Crossmatch 08/14/21 Range/Units 05:43 WBC 11.11 H (4.0-11.0) K/uL RBC 3.29 L (4.30-5.90) M/uL Hgb 9.9 L (12.0-16.0) g/dL Hct 28.7 L (36.0-46.0) % MCV 87.2 (80.0-98.0) fL MCH 30.1 (27.0-32.0) pg MCHC 34.5 (31.0-37.0) g/dL RDW Std Deviation 48.1 (28.0-62.0) fl RDW Coeff of Jessi 15 (11.0-15.0) % Plt Count 180 (150-400) K/uL MPV 10.90 (7.40-12.00) fL Neut % (Auto) 68.3 (48.0-80.0) % Lymph % (Auto) 14.5 L (16.0-40.0) % [place] % (Auto) 17.0 H (0.0-15.0) % Eos % (Auto) 0.1 (0.0-7.0) % Baso % (Auto) 0.1 (0.0-1.5) % Neut # (Auto) 7.6 H (1.4-5.7) K/uL Lymph # (Auto) 1.6 (0.6-2.4) K/uL [place] # (Auto) 1.9 H (0.0-0.8) K/uL Eos # (Auto) 0.0 (0.0-0.7) K/uL Baso # (Auto) 0.0 (0.0-0.1) K/uL Nucleated RBC % 0.0 /100WBC Nucleated RBCs # 0 K/uL INR APTT (18.6-31.3) SEC Fibrinogen (215-411) mg/dL Sodium (136-145) mmol/L Potassium (3.5-5.1) mmol/L Chloride (98-107) mmol/L Carbon Dioxide (21.0-32.0) mmol/L BUN (7.0-18.0) mg/dL Creatinine (0.6-1.0) mg/dL Est Cr Clr Drug Dosing mL/min Estimated GFR (MDRD) ml/min Glucose (74-106) mg/dL Calcium (8.5-10.1) mg/dL Total Bilirubin (0.2-1.0) mg/dL AST (15-37) IU/L ALT (14-63) IU/L Alkaline Phosphatase (46-116) U/L Total Protein (6.4-8.2) g/dL Albumin (3.4-5.0) g/dL Globulin (2.6-4.0) g/dL Albumin/Globulin Ratio (0.9-1.6) Blood Type Antibody Screen Crossmatch Result Diagrams: 08/14/21 05:43 08/14/21 05:43 Sepsis Event Note - Evaluation Sepsis Screening Result: No Definite Risk - Focused Exam Vital Signs: Vital Signs Temp Pulse Resp BP Pulse Ox Pulse Ox 08/14/21 08:00 36.9 C 16 98/53 L 92 L 92 L 08/14/21 03:59 36.1 C 87 16 91/55 L 94 L 08/13/21 23:45 36.1 C 83 18 98/55 L 96 - Problem List & Annotations (1) Ectopic , tubal SNOMED Code(s): 86803415 Code(s): O00.109 - UNSPECIFIED TUBAL WITHOUT INTRAUTERINE Status: Acute Current Visit: Yes Qualifiers: Laterality: left - Problem List Review Problem List Initiated/Reviewed/Updated: Yes - My Orders Last 24 Hours: My Active Orders 08/13/21 21:10 Patient Status [ADT] Routine Oxygen Therapy [RC] ASDIRECTED Urinary Catheter Removal [RC] Per Unit Routine Vital Signs [RC] Q4H Acetaminophen/oxyCODONE [Percocet 325-5 MG] 1 tab PO Q4H PRN Acetaminophen/oxyCODONE [Percocet 325-5 MG] 2 tab PO Q4H PRN Ketorolac [Toradol] 30 mg IVPUSH Q6H PRN Ondansetron [Zofran] 4 mg IVPUSH Q6H PRN Promethazine [Phenergan] 25 mg IM Q6H PRN Peripheral IV Discontinue [OM.PC] Routine Sequential Compression Device [OM.PC] Per Unit Routine Resuscitation Status Routine 08/13/21 21:11 Antiembolic Devices [RC] Q12H - Plan Plan:: - vitals stable - Bleeding light, Hgb 9.9 this AM, stable. Will start iron after discharge - encouraged ambulation - remove wylie today, good UO - pain controlled with toradol and percocet Continue inpatient, plan for discharge home tomorrow. Reviewed postop care instructions. Follow up in 2 week in clinic.
[2021-08-14 12:07] LABS: C.TRACHOMATIS BY TMA Negative (Negative); N.GONORRHOEAE BY TMA Negative (Negative)
--- NOTE | 2021-08-14 13:07 | PCM.SN.2 ---
- Free Text/Narrative Note: Spoke with Dr. iLu who will resume care of patient, will sign off Time Documentation
[2021-08-15] MEDS: Albuterol 0.083% 2.5 MG/3 ML Neb Soln NEB PRN (03:00)
[2021-08-15] MEDS: Acetaminophen/oxyCODONE 325-5 MG Tab PO PRN ×3 (03:24→15:16)
--- NOTE | 2021-08-15 10:15 | PCM.SURGPN ---
- General Info Date of Service: 08/15/21 POD#: 2 Functional Status: Reports: Tolerating Diet, Ambulating, Urinating - Review of Systems General: Reports: Fatigue. Denies: Fever, Weakness HEENT: Reports: No Symptoms Pulmonary: Reports: No Symptoms Cardiovascular: Reports: Lightheadedness (mild occasionally with ambulation) Gastrointestinal: Reports: Abdominal Pain (incisional--oral pain meds are helping). Denies: Nausea, Vomiting Genitourinary: Reports: No Symptoms Musculoskeletal: Reports: No Symptoms Skin: Reports: No Symptoms Neurological: Denies: Headache, Numbness Psychiatric: Reports: No Symptoms - Patient Data Vitals - Most Recent: Last Vital Signs Temp 36.6 C 08/15/21 08:06 Pulse 84 08/15/21 08:06 Resp 17 08/15/21 08:06 BP 109/52 L 08/15/21 08:06 Pulse Ox 91 L 08/15/21 08:06 Orthostatic Blood Pressure [ 102/65 Supine] Orthostatic Blood Pressure [ 77/23 Sitting] Weight - Most Recent: 77.065 kg I&O - Last 24 Hours: Intake & Output 08/14/21 08/15/21 08/15/21 22:59 06:59 14:59 Intake Total 700 1120 Output Total 1100 900 Balance -400 220 Lab Results Last 24 Hrs: Laboratory Results - last 24 hr 08/12/21 08/15/21 08/15/21 Range/Units 20:47 05:40 05:40 WBC 13.14 H (4.0-11.0) K/uL RBC 3.16 L (4.30-5.90) M/uL Hgb 9.6 L (12.0-16.0) g/dL Hct 27.7 L (36.0-46.0) % MCV 87.7 (80.0-98.0) fL MCH 30.4 (27.0-32.0) pg MCHC 34.7 (31.0-37.0) g/dL RDW Std Deviation 46.8 (28.0-62.0) fl RDW Coeff of Jessi 15 (11.0-15.0) % Plt Count 191 (150-400) K/uL MPV 10.60 (7.40-12.00) fL Neut % (Auto) 61.7 (48.0-80.0) % Lymph % (Auto) 24.3 (16.0-40.0) % [place] % (Auto) 12.0 (0.0-15.0) % Eos % (Auto) 1.8 (0.0-7.0) % Baso % (Auto) 0.2 (0.0-1.5) % Neut # (Auto) 8.1 H (1.4-5.7) K/uL Lymph # (Auto) 3.2 H (0.6-2.4) K/uL [place] # (Auto) 1.6 H (0.0-0.8) K/uL Eos # (Auto) 0.2 (0.0-0.7) K/uL Baso # (Auto) 0.0 (0.0-0.1) K/uL Nucleated RBC % 0.0 /100WBC Nucleated RBCs # 0 K/uL HCG, Quant 21.0 mIU/mL Chlamydia/GC Source GENITAL C.trachomatis RNA (TMA) Negative (Negative) N.gonorrhoeae RNA (TMA) Negative (Negative) Med Orders - Current: Current Medications Albuterol (Albuterol 0.083% 2.5 Mg/3 Ml Neb Soln) 2.5 mg NEB Q6HRRT PRN PRN Reason: Wheezing Last Admin: 08/15/21 03:00 Dose: 2.5 mg Documented by: Sodium Chloride (Normal Saline) 1,000 mls @ 125 mls/hr IV ASDIRECTED RISHI Last Admin: 08/13/21 13:37 Dose: 125 mls/hr Documented by: Ketorolac Tromethamine (Ketorolac 30 Mg/Ml Sdv) 30 mg IVPUSH Q6H PRN PRN Reason: Pain (severe 7-10) Stop: 08/18/21 21:10 Morphine Sulfate (Morphine 2 Mg/Ml Syringe) 2 mg IVPUSH Q4H PRN PRN Reason: Pain Last Admin: 08/14/21 04:48 Dose: 2 mg Documented by: Ondansetron HCl (Ondansetron 4 Mg/2 Ml Sdv) 4 mg IVPUSH Q6H PRN PRN Reason: Nausea/Vomiting Oxycodone/Acetaminophen (Acetaminophen/Oxycodone 325-5 Mg Tab) 1 tab PO Q4H PRN PRN Reason: Pain (moderate 4-6) Last Admin: 08/15/21 09:14 Dose: 1 tab Documented by: Oxycodone/Acetaminophen (Acetaminophen/Oxycodone 325-5 Mg Tab) 2 tab PO Q4H PRN PRN Reason: Pain (moderate 4-6) Last Admin: 08/14/21 20:49 Dose: 2 tab Documented by: Promethazine HCl (Promethazine 25 Mg/Ml Sdv) 25 mg IM Q6H PRN PRN Reason: Nausea/Vomiting Sodium Chloride (Sodium Chloride 0.9% 10 Ml Syringe) 10 ml FLUSH ASDIRECTED PRN PRN Reason: Keep Vein Open Last Admin: 08/12/21 17:08 Dose: 10 ml Documented by: Sodium Chloride (Sodium Chloride 0.9% 2.5 Ml Syringe) 2.5 ml FLUSH ASDIRECTED PRN PRN Reason: Keep Vein Open Last Admin: 08/12/21 17:06 Dose: 2.5 ml Documented by: Discontinued Medications Albuterol (Albuterol 0.083% 2.5 Mg/3 Ml Neb Soln) 2.5 mg NEB ONETIME PRN PRN Reason: Wheezing Calcium Gluconate (Calcium Gluconate 10% 1 Gm/10 Ml Sdv) Confirm Administered Dose 1 gm .ROUTE .STK-MED ONE Stop: 08/13/21 11:01 Dexamethasone (Dexamethasone 4 Mg/Ml 5 Ml Mdv) Confirm Administered Dose 20 mg .ROUTE .STK-MED ONE Stop: 08/13/21 09:58 Droperidol (Droperidol 5 Mg/2 Ml Sdv) 0.625 mg IVPUSH ONETIME PRN PRN Reason: Nausea/Vomiting Fentanyl (Fentanyl 100 Mcg/2 Ml Sdv) Confirm Administered Dose 100 mcg .ROUTE .STK-MED ONE Stop: 08/13/21 09:59 Fentanyl (Fentanyl 100 Mcg/2 Ml Sdv) 50 mcg IVPUSH Q5M PRN PRN Reason: Pain (mild 1-3) Hydromorphone HCl (Hydromorphone 1 Mg/Ml Syringe) 1 mg IVPUSH Q10M PRN PRN Reason: Pain (moderate 4-6) Last Admin: 08/13/21 12:41 Dose: 1 mg Documented by: Sodium Chloride (Normal Saline) 1,000 mls @ 999 mls/hr IV STAT ONE Stop: 08/12/21 17:30 Last Admin: 08/12/21 17:05 Dose: 999 mls/hr Documented by: Sodium Chloride (Normal Saline) 1,000 mls @ 999 mls/hr IV STAT ONE Stop: 08/12/21 20:58 Last Admin: 08/12/21 20:03 Dose: 999 mls/hr Documented by: Sodium Chloride (Normal Saline) 1,000 mls @ 999 mls/hr IV STAT ONE Stop: 08/12/21 21:38 Last Admin: 08/12/21 21:27 Dose: 999 mls/hr Documented by: Sodium Chloride (Normal Saline) 1,000 mls @ 999 mls/hr IV STAT ONE Stop: 08/12/21 22:46 Last Admin: 08/12/21 22:21 Dose: 999 mls/hr Documented by: Ceftriaxone Sodium 1 gm/ (Sodium Chloride) 50 mls @ 100 mls/hr IV Q24H [facility] Last Admin: 08/13/21 16:48 Dose: Not Given Documented by: Ceftriaxone Sodium 1 gm/ (Sodium Chloride) 50 mls @ 100 mls/hr IV Q24H [facility] Last Admin: 08/13/21 16:48 Dose: Not Given Documented by: Ceftriaxone Sodium/Dextrose 1 (gm/ Premix) 50 mls @ 100 mls/hr IV Q24H [facility] Last Admin: 08/13/21 09:25 Dose: 100 mls/hr Documented by: Sodium Chloride (Normal Saline) 1,000 mls @ 999 mls/hr IV .Bolus ONE Stop: 08/13/21 08:19 Last Admin: 08/13/21 09:18 Dose: 999 mls/hr Documented by: Bupivacaine HCl/Epinephrine Bitart (Sensorc Mpf 0.25%-Epi [id number]) Confirm Administered Dose 30 mls @ as directed .ROUTE .STK-MED ONE Stop: 08/13/21 11:12 Ketorolac Tromethamine (Ketorolac 30 Mg/Ml Sdv) 30 mg IVPUSH ONETIME ONE Stop: 08/12/21 16:31 Last Admin: 08/12/21 17:07 Dose: 30 mg Documented by: Lidocaine (Lidocaine 2% 5 Ml Sdv) Confirm Administered Dose 5 ml .ROUTE .STK-MED ONE Stop: 08/13/21 09:58 Metoclopramide HCl (Metoclopramide 10 Mg/2 Ml Sdv) 10 mg IVPUSH ONETIME PRN PRN Reason: Nausea/Vomiting Midazolam HCl (Midazolam 1 Mg/Ml 2 Ml Sdv) Confirm Administered Dose 2 mg .ROUTE .STK-MED ONE Stop: 08/13/21 09:59 Miscellaneous Medication (Phenylephrine Hcl In 0.9% Nacl 1 Mg/10 Ml Syringe) Confirm Administered Dose 1 mg .ROUTE .STK-MED ONE Stop: 08/13/21 11:00 Morphine Sulfate (Morphine 2 Mg/Ml Syringe) 2 mg IVPUSH Q10M PRN PRN Reason: Pain (severe 7-10) Naloxone HCl (Naloxone 0.4 Mg/Ml Sdv) 0.1 mg IVPUSH ASDIRECTED PRN PRN Reason: Respiratory Depression Ondansetron HCl (Ondansetron 4 Mg/2 Ml Sdv) 4 mg IVPUSH ONETIME ONE Stop: 08/12/21 16:31 Last Admin: 08/12/21 17:05 Dose: 4 mg Documented by: Ondansetron HCl (Ondansetron 4 Mg/2 Ml Sdv) Confirm Administered Dose 4 mg .ROUTE .STK-MED ONE Stop: 08/13/21 09:58 Ondansetron HCl (Ondansetron 4 Mg/2 Ml Sdv) 4 mg IVPUSH ONETIME PRN PRN Reason: Nausea/Vomiting Propofol (Propofol 200 Mg/20 Ml Sdv) Confirm Administered Dose 200 mg .ROUTE .STK-MED ONE Stop: 08/13/21 10:00 Rocuronium Bath (Rocuronium Bath 50 Mg/5 Ml Syringe) Confirm Administered Dose 50 mg .ROUTE .STK-MED ONE Stop: 08/13/21 09:58 Ropivacaine (Ropivacaine 0.5% 5 Mg/Ml 30 Ml Sdv) Confirm Administered Dose 30 ml .ROUTE .STK-MED ONE Stop: 08/13/21 11:12 Sugammadex Sodium (Sugammadex Sodium 200 Mg/2 Ml Vial) Confirm Administered Dose 200 mg .ROUTE .STK-MED ONE Stop: 08/13/21 09:58 - Exam Wound/Incisions: No Drainage. No: Erythema General: Alert, Oriented Lungs: Normal Respiratory Effort Cardiovascular: Regular Rate, Regular Rhythm GI/Abdominal Exam: Normal Bowel Sounds, Soft. No: Guarding, Rebound Extremities: Pedal Edema (trace). No: Shana's Sign Skin: Warm, Dry, Intact Neurological: No New Focal Deficit Psy/Mental Status: Alert, Normal Mood Sepsis Event Note - Evaluation Sepsis Screening Result: No Definite Risk - Focused Exam Vital Signs: Vital Signs Temp Pulse Resp BP Pulse Ox 08/15/21 08:06 36.6 C 84 17 109/52 L 91 L 08/15/21 05:12 36.2 C 90 17 110/58 L 92 L 08/14/21 23:23 36.1 C 93 20 115/56 L 93 L - Problem List & Annotations (1) Ectopic , tubal SNOMED Code(s): 19045007 Code(s): O00.109 - UNSPECIFIED TUBAL WITHOUT INTRAUTERINE Status: Acute Current Visit: Yes Qualifiers: Laterality: left (2) Status post exploratory laparotomy SNOMED Code(s): 314061741, 07326814, 871783041 Code(s): Z98.890 - OTHER SPECIFIED POSTPROCEDURAL STATES Status: Acute Current Visit: Yes - Problem List Review Problem List Initiated/Reviewed/Updated: Yes - My Orders Last 24 Hours: Medication Orders Albuterol (Albuterol 0.083% 2.5 Mg/3 Ml Neb Soln) 2.5 mg NEB Q6HRRT PRN PRN Reason: Wheezing Last Admin: 08/15/21 03:00 Dose: 2.5 mg Documented by: Admin: 08/14/21 20:39 Dose: 2.5 mg Documented by: Admin: 08/14/21 11:28 Dose: 2.5 mg Documented by: LARISA Cosigned by: LAURA Admin: 08/14/21 04:47 Dose: 2.5 mg Documented by: Admin: 08/13/21 20:17 Dose: 2.5 mg Documented by: JULI Sodium Chloride (Normal Saline) 1,000 mls @ 125 mls/hr IV ASDIRECTED [facility] Admin: 08/13/21 13:37 Dose: 125 mls/hr Documented by: Infusion: 08/13/21 13:37 Dose: 125 mls/hr Documented by: Admin: 08/13/21 09:19 Dose: 125 mls/hr Documented by: KENY Cosigned by: GOLDEN Ketorolac Tromethamine (Ketorolac 30 Mg/Ml Sdv) 30 mg IVPUSH Q6H PRN PRN Reason: Pain (severe 7-10) Stop: 08/18/21 21:10 Morphine Sulfate (Morphine 2 Mg/Ml Syringe) 2 mg IVPUSH Q4H PRN PRN Reason: Pain Last Admin: 08/14/21 04:48 Dose: 2 mg Documented by: Admin: 08/13/21 20:22 Dose: 2 mg Documented by: Admin: 08/13/21 16:38 Dose: 2 mg Documented by: NEHEMIAH Ondansetron HCl (Ondansetron 4 Mg/2 Ml Sdv) 4 mg IVPUSH Q6H PRN PRN Reason: Nausea/Vomiting Oxycodone/Acetaminophen (Acetaminophen/Oxycodone 325-5 Mg Tab) 1 tab PO Q4H PRN PRN Reason: Pain (moderate 4-6) Last Admin: 08/15/21 09:14 Dose: 1 tab Documented by: Admin: 08/15/21 03:24 Dose: 1 tab Documented by: LAURIE Oxycodone/Acetaminophen (Acetaminophen/Oxycodone 325-5 Mg Tab) 2 tab PO Q4H PRN PRN Reason: Pain (moderate 4-6) Last Admin: 08/14/21 20:49 Dose: 2 tab Documented by: Admin: 08/14/21 14:26 Dose: 2 tab Documented by: Admin: 08/14/21 08:25 Dose: 2 tab Documented by: LRAISA Cosigned by: LAURA Admin: 08/14/21 00:50 Dose: 2 tab Documented by: JULI Promethazine HCl (Promethazine 25 Mg/Ml Sdv) 25 mg IM Q6H PRN PRN Reason: Nausea/Vomiting Sodium Chloride (Sodium Chloride 0.9% 10 Ml Syringe) 10 ml FLUSH ASDIRECTED PRN PRN Reason: Keep Vein Open Last Admin: 08/12/21 17:08 Dose: 10 ml Documented by: NINI Sodium Chloride (Sodium Chloride 0.9% 2.5 Ml Syringe) 2.5 ml FLUSH ASDIRECTED PRN PRN Reason: Keep Vein Open Last Admin: 08/12/21 17:06 Dose: 2.5 ml Documented by: NINI - Assessment Assessment (Free Text/Narrative):: POD 2 status post ex lap for ruptured ectopic - Plan Plan (Free Text/Narrative):: VS are stable. Has good urine output. Labs are stable. Patient is using a walker to ambulate as states she is having pain and it helps. Will discontinue central line. May take shower. Ambulate without walker is goal. Continue postoperative cares. Patient states would like to go home, advised need her to be able to ambulate wihtout the walker to be discharged so will work on that this morning.
[2021-08-15 12:42] VITALS: PULSE 86
[2021-08-15 16:24] VITALS: BP 117/63
== END 2021-08-15 16:55 | disposition home or self-care (01) | DRG 817 ==
LOC: MW.ED 16:19 → MW.MS 22:33 → OBSVTOIN 08-15 10:18
PROVIDERS: ADMIT Obstetrics & Gynecology; ATTEND Obstetrics & Gynecology
PROC: 0UT60ZZ Resection of Left Fallopian Tube, Open Approach (ICD-10-PCS; principal; 2021-08-13)
PROC: 0WCG0ZZ Extirpation of Matter from Peritoneal Cavity, Open Approach (ICD-10-PCS; 2021-08-13)
PROC: 30233N1 Transfusion of Nonautologous Red Blood Cells into Peripheral Vein, Percutaneous Approach (ICD-10-PCS; 2021-08-13)
PROC: 3E033XZ Introduction of Vasopressor into Peripheral Vein, Percutaneous Approach (ICD-10-PCS; 2021-08-15)
DX: O00.102 Left tubal pregnancy without intrauterine pregnancy (principal); K66.1 Hemoperitoneum; Z20.822 Contact with and (suspected) exposure to COVID-19; Z3A.01 Less than 8 weeks gestation of pregnancy; Z86.16 Personal history of COVID-19
CPT/HCPCS: 00840; 36410; 36415; 36430; 64488; 71045; 71045-26; 71250; 71250-26; 74176; 74176-26; 76775; 76775-26; 76817; 76817-26; 80053; 81001; 81003; 82947; 83605; 83690; 84702; 84703; 85025; 85027; 85384; 85610; 85730; 86850; 86900; 86901; 86920; 86921; 86922; 87480; 87491; 87510; 87591; 87660; 93005; 96374; 96375; 99285-25; A9270-GY; J0610; J0696; J1100; J1170; J1885; J2250; J2270; J2370; J2405; J2704; J2795; J3010; J3490; J7030; P9016; U0002

== ENCOUNTER 2022-03-04 13:55 | Emergency (ER) | payer OTHER ==
[2022-03-04 15:13] LABS: BLOOD UREA NITROGEN,BUN 10 mg/dL (7.0-18.0); CARBON DIOXIDE,CO2 26.9 mmol/L (21.0-32.0); CHLORIDE,CL 101 mmol/L (98-107); GLUCOSE RANDOM 87 mg/dL (74-106); LIPASE 51 U/L (73-393); POTASSIUM,K 3.7 mmol/L (3.5-5.1); SODIUM,NA 139 mmol/L (136-145)
[2022-03-04 16:20] VITALS: BP 104/71; PULSE 69
== END 2022-03-04 17:29 | disposition home or self-care (01) ==
LOC: MW.ED 13:55
DX: R20.2 Paresthesia of skin (principal); R53.83 Other fatigue; E66.9 Obesity, unspecified; Z68.31 Body mass index [BMI] 31.0-31.9, adult; Z91.010 Allergy to peanuts; Z91.09 Other allergy status, other than to drugs and biological substances; Z91.018 Allergy to other foods; Z86.16 Personal history of COVID-19
CPT/HCPCS: 36415; 70450; 70450-26; 80053; 81003; 83690; 84703; 85025; 99284-25

== ENCOUNTER 2022-03-12 09:54 | Emergency (ER) | payer OTHER ==
[2022-03-12] MEDS ORDERED: Diphtheria,Pertussis(Acell),Tetanus Vaccine 0.5 ML Syringe IM ONE (09:57)
[2022-03-12] MEDS ORDERED: Lidocaine 1% PF 2 ML SDV INJECT ONE (09:57)
[2022-03-12] MEDS ORDERED: Bacitracin Oint 1 GM U/D Packet TOP ONE (09:57)
[2022-03-12] MEDS ORDERED: Octyl 2-Cyanoacrylate 1 Tube TOP ONE (10:11)
[2022-03-12 10:31] VITALS: BP 101/57; PULSE 74
== END 2022-03-12 10:41 | disposition home or self-care (01) ==
LOC: MW.ED 09:54
DX: S61.211A Laceration without foreign body of left index finger without damage to nail, initial encounter (principal); E66.9 Obesity, unspecified; Z68.42 Body mass index [BMI] 45.0-49.9, adult; Z91.010 Allergy to peanuts; Z91.09 Other allergy status, other than to drugs and biological substances; Z91.018 Allergy to other foods; Z86.16 Personal history of COVID-19; Z23 Encounter for immunization; W26.0XXA Contact with knife, initial encounter
CPT/HCPCS: 12001; 90471; 90715; 99282; A9270

== ENCOUNTER 2022-03-12 18:10 | Emergency (ER) | payer OTHER ==
[2022-03-12] MEDS ORDERED: Octyl 2-Cyanoacrylate 1 Tube TOP ONE (19:44)
[2022-03-12 19:45] VITALS: BP 119/78; PULSE 73
== END 2022-03-12 20:16 | disposition home or self-care (01) ==
LOC: MW.ED 18:10
DX: S61.211A Laceration without foreign body of left index finger without damage to nail, initial encounter (principal); J45.909 Unspecified asthma, uncomplicated; E66.9 Obesity, unspecified; Z68.32 Body mass index [BMI] 32.0-32.9, adult; Z86.16 Personal history of COVID-19; Z90.49 Acquired absence of other specified parts of digestive tract; Z79.899 Other long term (current) drug therapy; Z91.048 Other nonmedicinal substance allergy status; Z91.018 Allergy to other foods; Z91.010 Allergy to peanuts; W26.8XXA Contact with other sharp object(s), not elsewhere classified, initial encounter
CPT/HCPCS: 12001; 99282; A9270

== ENCOUNTER 2022-06-08 13:14 | Emergency (ER) | payer OTHER ==
[2022-06-08] MEDS ORDERED: Sodium Chloride 0.9% 1,000 ML IV ONE (13:23)
[2022-06-08 14:18] LABS: CARBON DIOXIDE,CO2 28.3 mmol/L (21.0-32.0); POTASSIUM,K 4.1 mmol/L (3.5-5.1)
[2022-06-08 15:17] VITALS: BP 121/68; PULSE 64
== END 2022-06-08 15:12 | disposition home or self-care (01) ==
LOC: MW.ED 13:14
DX: N30.00 Acute cystitis without hematuria (principal); R55 Syncope and collapse; K21.9 Gastro-esophageal reflux disease without esophagitis; Z79.899 Other long term (current) drug therapy; Z88.8 Allergy status to other drugs, medicaments and biological substances
CPT/HCPCS: 36415; 80053; 81001; 81025; 85025; 87086; 93005; 96360; 99284; J7030

== ENCOUNTER 2022-07-03 18:56 | Emergency (ER) | payer OTHER ==
[2022-07-03] MEDS ORDERED: predniSONE 20 MG Tab PO ONE (20:03)
[2022-07-03 20:28] VITALS: BP 123/78; PULSE 65
== END 2022-07-03 20:28 | disposition home or self-care (01) ==
LOC: MW.ED 18:56
DX: R06.02 Shortness of breath (principal); R06.01 Orthopnea; J45.909 Unspecified asthma, uncomplicated; E66.9 Obesity, unspecified; Z68.33 Body mass index [BMI] 33.0-33.9, adult; Z91.048 Other nonmedicinal substance allergy status; Z91.018 Allergy to other foods; Z91.010 Allergy to peanuts; Z79.899 Other long term (current) drug therapy; Z86.16 Personal history of COVID-19; Z90.49 Acquired absence of other specified parts of digestive tract; Z20.822 Contact with and (suspected) exposure to COVID-19
CPT/HCPCS: 71045; 87635; 99285; A9270; U0002

== ENCOUNTER 2022-11-22 10:40 | Emergency (ER) | payer OTHER ==
[2022-11-22] MEDS ORDERED: Sodium Chloride 0.9% 1,000 ML IV ONE (10:55)
[2022-11-22 12:03] LABS: CARBON DIOXIDE,CO2 26.5 mmol/L (21.0-32.0); POTASSIUM,K 4.1 mmol/L (3.5-5.1)
[2022-11-22 12:26] LABS: CORONAVIRUS COVID-19 NAA NEGATIVE (NEGATIVE); INFLUENZA A NAA NEGATIVE (NEGATIVE); INFLUENZA B NAA NEGATIVE (NEGATIVE)
[2022-11-22 13:15] VITALS: BP 106/86; PULSE 68
== END 2022-11-22 13:14 | disposition home or self-care (01) ==
LOC: MW.ED 10:40
DX: R10.31 Right lower quadrant pain (principal); E66.9 Obesity, unspecified; Z68.33 Body mass index [BMI] 33.0-33.9, adult; Z91.018 Allergy to other foods; Z91.048 Other nonmedicinal substance allergy status; Z91.010 Allergy to peanuts; Z79.899 Other long term (current) drug therapy; Z86.16 Personal history of COVID-19; Z90.49 Acquired absence of other specified parts of digestive tract; Z20.822 Contact with and (suspected) exposure to COVID-19
CPT/HCPCS: 0240U; 36415; 80053; 81001; 81025; 83690; 85025; 87086; 96360; 99284; J7030; 99283

== ENCOUNTER 2023-05-22 17:18 | Emergency (ER) | payer OTHER ==
[2023-05-22 17:41] VITALS: BP 131/77; PULSE 71
[2023-05-22] MEDS ORDERED: Ondansetron 4 MG Tab.DIS PO ONE (18:10)
[2023-05-22] MEDS ORDERED: [UNRECOGNIZED DRUG - OTHER] PO ONE ×2 (18:13)
[2023-05-22] MEDS ORDERED: methylPREDNISolone Sodium Succinate 125 MG/2 ML SDV IM ONE (19:46)
== END 2023-05-22 20:13 | disposition home or self-care (01) ==
LOC: MW.ED 17:18
DX: J02.9 Acute pharyngitis, unspecified (principal); F41.9 Anxiety disorder, unspecified; J45.909 Unspecified asthma, uncomplicated; E03.9 Hypothyroidism, unspecified; Z86.16 Personal history of COVID-19; Z79.899 Other long term (current) drug therapy; Z91.010 Allergy to peanuts; Z91.09 Other allergy status, other than to drugs and biological substances
CPT/HCPCS: 71045; 93005; 96372; 99285; A9270; J2930; 93010; 99283

== ENCOUNTER 2023-11-06 07:26 | Emergency (ER) | payer OTHER ==
[2023-11-06] MEDS ORDERED: Sodium Chloride 0.9% 2.5 ML Syringe FLUSH PRN (07:49)
[2023-11-06] MEDS ORDERED: Sodium Chloride 0.9% 10 ML Syringe FLUSH PRN (07:49)
[2023-11-06] MEDS ORDERED: Sodium Chloride 0.9% 1,000 ML IV ONE (07:50)
[2023-11-06] MEDS ORDERED: Loperamide 2 MG Cap PO STA (07:50)
[2023-11-06] MEDS ORDERED: Ondansetron 4 MG/2 ML SDV IVPUSH ONE (07:50)
[2023-11-06 07:58] LABS: BASOPHILS ABSOLUTE AUTO 0.05 K/uL (0.00-0.20); BASOPHILS PERCENT AUTO 0.4 % (0.0-1.0); EOSINOPHILS PERCENT AUTO 0.8 % (0.0-6.0); HEMATOCRIT 42.9 % (37.0-47.0); HEMOGLOBIN 14.9 g/dL (12.0-16.0); IMMATURE GRAN ABSOLUTE AUTO 0.14 K/uL (0.00-0.05); IMMATURE GRAN PERCENT AUTO 1.1 % (0.0-0.4); LYMPHOCYTES ABSOLUTE AUTO 1.73 K/uL (1.00-4.80); LYMPHOCYTES PERCENT AUTO 13.9 % (24.0-44.0); MEAN CORPUSCULAR HEMOGLOBIN 31.3 pg (28.0-32.0); MEAN CORPUSCULAR HGB CONC 34.7 g/dL (32.0-36.0); MEAN CORPUSCULAR VOLUME 90.1 fL (83.0-99.0); MEAN PLATELET VOLUME 10.9 fL (9.4-12.3); MONOCYTES ABSOLUTE AUTO 1.22 K/uL (0.00-0.80); MONOCYTES PERCENT AUTO 9.8 % (0.0-8.0); NEUTROPHILS ABSOLUTE AUTO 9.22 K/uL (1.80-7.70); PLATELET COUNT,PLT 306 K/uL (150-400); RED BLOOD CELL COUNT 4.76 M/uL (4.10-5.30); WHITE BLOOD CELL COUNT,WBC 12.46 K/uL (3.9-11.3)
[2023-11-06 08:13] LABS: A/G RATIO 1.1 (0.9-1.6); ALBUMIN 3.7 g/dL (3.4-5.0); BILIRUBIN TOTAL 0.5 mg/dL (0.2-1.0); CARBON DIOXIDE,CO2 27.9 mmol/L (21.0-32.0); CREATININE 0.9 mg/dL (0.6-1.0); EST CRCL DRUG DOSING (CG) 62.67 mL/min; POTASSIUM,K 3.8 mmol/L (3.5-5.1)
[2023-11-06 08:34] LABS: CORONAVIRUS COVID-19 NAA NEGATIVE (NEGATIVE); INFLUENZA A NAA NEGATIVE (NEGATIVE); INFLUENZA B NAA NEGATIVE (NEGATIVE); RESPIRATORY SYNCYTIAL VIR NAA NEGATIVE (NEGATIVE)
[2023-11-06 08:40] LABS: BILIRUBIN,URINE NEGATIVE (NEGATIVE); COLOR,URINE YELLOW; GLUCOSE,URINE NEGATIVE (NEGATIVE); KETONES,URINE NEGATIVE (NEGATIVE); LEUKOCYTE ESTERASE,URINE NEGATIVE (NEGATIVE); NITRITE,URINE NEGATIVE (NEGATIVE); OCCULT BLOOD,URINE NEGATIVE (NEGATIVE); PROTEIN,URINE NEGATIVE (NEGATIVE); UROBILINOGEN,URINE 0.2 EU/dL (<2.0)
[2023-11-06 08:45] LABS: APPEARANCE,URINE HAZY
[2023-11-06 09:22] VITALS: BP 122/58; PULSE 62
== END 2023-11-06 09:21 | disposition home or self-care (01) ==
LOC: MW.ED 07:26
DX: R11.2 Nausea with vomiting, unspecified (principal); R19.7 Diarrhea, unspecified; J45.909 Unspecified asthma, uncomplicated; E03.9 Hypothyroidism, unspecified; Z86.16 Personal history of COVID-19; Z20.822 Contact with and (suspected) exposure to COVID-19; Z90.49 Acquired absence of other specified parts of digestive tract; Z79.899 Other long term (current) drug therapy; Z91.048 Other nonmedicinal substance allergy status; Z91.018 Allergy to other foods; Z91.010 Allergy to peanuts; Z88.8 Allergy status to other drugs, medicaments and biological substances
CPT/HCPCS: 0241U; 36415; 80053; 81003; 81025; 83690; 85025; 96361; 96374; 99284; A9270; J2405; J3490; J7030

== ENCOUNTER 2023-11-24 11:35 | Emergency (ER) | payer OTHER ==
[2023-11-24] MEDS ORDERED: Sodium Chloride 0.9% 2.5 ML Syringe FLUSH PRN (11:40)
[2023-11-24] MEDS ORDERED: Sodium Chloride 0.9% 1,000 ML IV STA (11:40)
[2023-11-24] MEDS ORDERED: Sodium Chloride 0.9% 10 ML Syringe FLUSH PRN (11:40)
[2023-11-24 12:03] LABS: APPEARANCE,URINE CLEAR; BILIRUBIN,URINE NEGATIVE (NEGATIVE); COLOR,URINE YELLOW; GLUCOSE,URINE NEGATIVE (NEGATIVE); KETONES,URINE NEGATIVE (NEGATIVE); LEUKOCYTE ESTERASE,URINE NEGATIVE (NEGATIVE); NITRITE,URINE NEGATIVE (NEGATIVE); OCCULT BLOOD,URINE TRACE-INTACT (NEGATIVE); PROTEIN,URINE NEGATIVE (NEGATIVE); UROBILINOGEN,URINE 0.2 EU/dL (<2.0)
[2023-11-24 12:12] LABS: BASOPHILS ABSOLUTE AUTO 0.09 K/uL (0.00-0.20); BASOPHILS PERCENT AUTO 0.9 % (0.0-1.0); EOSINOPHILS ABSOLUTE AUTO 0.13 K/uL (0.00-0.45); EOSINOPHILS PERCENT AUTO 1.3 % (0.0-6.0); HEMATOCRIT 42.1 % (37.0-47.0); HEMOGLOBIN 14.5 g/dL (12.0-16.0); IMMATURE GRAN ABSOLUTE AUTO 0.03 K/uL (0.00-0.05); IMMATURE GRAN PERCENT AUTO 0.3 % (0.0-0.4); LYMPHOCYTES ABSOLUTE AUTO 2.09 K/uL (1.00-4.80); LYMPHOCYTES PERCENT AUTO 20.2 % (24.0-44.0); MEAN CORPUSCULAR HGB CONC 34.4 g/dL (32.0-36.0); MEAN CORPUSCULAR VOLUME 90.1 fL (83.0-99.0); MEAN PLATELET VOLUME 10.6 fL (9.4-12.3); MONOCYTES ABSOLUTE AUTO 1.18 K/uL (0.00-0.80); MONOCYTES PERCENT AUTO 11.4 % (0.0-8.0); NEUTROPHILS ABSOLUTE AUTO 6.82 K/uL (1.80-7.70); NEUTROPHILS PERCENT AUTO 65.9 % (41.0-71.0); PLATELET COUNT,PLT 326 K/uL (150-400); RED BLOOD CELL COUNT 4.67 M/uL (4.10-5.30); WHITE BLOOD CELL COUNT,WBC 10.34 K/uL (3.9-11.3)
[2023-11-24 12:16] LABS: BACTERIA,URINE FEW (NEGATIVE); EPITHELIAL CELLS,URINE RARE (NONE-FEW); RBC,URINE 0-2 (0-2/HPF); WBC,URINE 0-2 (0-5/HPF)
[2023-11-24 12:52] LABS: A/G RATIO 1.1 (0.9-1.6); ALANINE AMINOTRANSFERASE,ALT 42 IU/L (14-63); ALBUMIN 3.8 g/dL (3.4-5.0); ALKALINE PHOSPHATASE 87 U/L (46-116); ASPARTATE AMNIOTRANSFERASE,AST 26 IU/L (15-37); BILIRUBIN TOTAL 0.3 mg/dL (0.2-1.0); BLOOD UREA NITROGEN,BUN 8 mg/dL (7.0-18.0); CALCIUM 9.3 mg/dL (8.5-10.1); CARBON DIOXIDE,CO2 25.7 mmol/L (21.0-32.0); CHLORIDE,CL 104 mmol/L (98-107); CREATININE 0.8 mg/dL (0.6-1.0); GLUCOSE RANDOM 86 mg/dL (74-106); LIPASE 27 U/L (16-77); MAGNESIUM 2.1 mg/dL (1.8-2.4); POTASSIUM,K 3.9 mmol/L (3.5-5.1); PROTEIN TOTAL,TP 7.4 g/dL (6.4-8.2); SODIUM,NA 141 mmol/L (136-145)
[2023-11-24 12:57] LABS: ESTIMATED GFR 98 mL/min (>60)
[2023-11-24 13:57] VITALS: BP 125/85; PULSE 70
== END 2023-11-24 14:23 | disposition home or self-care (01) ==
LOC: MW.ED 11:35
DX: R55 Syncope and collapse (principal); N93.9 Abnormal uterine and vaginal bleeding, unspecified; J45.909 Unspecified asthma, uncomplicated; E03.9 Hypothyroidism, unspecified; Z86.16 Personal history of COVID-19; Z79.899 Other long term (current) drug therapy; Z91.010 Allergy to peanuts; Z91.018 Allergy to other foods; Z91.048 Other nonmedicinal substance allergy status; Z88.8 Allergy status to other drugs, medicaments and biological substances
CPT/HCPCS: 36415; 80053; 81001; 82728; 83690; 83735; 84484; 84703; 85025; 93005; 96360; 99284; J3490; J7030; 93010; 99282

== ENCOUNTER 2024-01-17 11:26 | Emergency (ER) | payer OTHER ==
[2024-01-17 11:57] LABS: APPEARANCE,URINE CLEAR; BILIRUBIN,URINE NEGATIVE (NEGATIVE); COLOR,URINE YELLOW; GLUCOSE,URINE NEGATIVE (NEGATIVE); KETONES,URINE NEGATIVE (NEGATIVE); LEUKOCYTE ESTERASE,URINE NEGATIVE (NEGATIVE); NITRITE,URINE NEGATIVE (NEGATIVE); OCCULT BLOOD,URINE NEGATIVE (NEGATIVE); PROTEIN,URINE NEGATIVE (NEGATIVE); UROBILINOGEN,URINE 0.2 EU/dL (<2.0)
[2024-01-17] MEDS: Sodium Chloride 0.9% 10 ML Syringe FLUSH PRN (12:11)
[2024-01-17] MEDS: Sodium Chloride 0.9% 2.5 ML Syringe FLUSH PRN (12:11)
[2024-01-17] MEDS: Sodium Chloride 0.9% 1,000 ML IV STA (12:11)
[2024-01-17 12:28] LABS: HEMATOCRIT 44.7 % (37.0-47.0); HEMOGLOBIN 15.6 g/dL (12.0-16.0); MEAN CORPUSCULAR HEMOGLOBIN 31.1 pg (28.0-32.0); MEAN CORPUSCULAR HGB CONC 34.9 g/dL (32.0-36.0); MEAN PLATELET VOLUME 11.4 fL (9.4-12.3); PLATELET COUNT,PLT 325 K/uL (150-400); RED BLOOD CELL COUNT 5.02 M/uL (4.10-5.30)
[2024-01-17 12:39] LABS: CORONAVIRUS COVID-19 NAA NEGATIVE (NEGATIVE); INFLUENZA A NAA NEGATIVE (NEGATIVE); INFLUENZA B NAA NEGATIVE (NEGATIVE)
[2024-01-17 13:21] LABS: EOSINOPHILS ABSOLUTE MAN 0.19 K/uL (0.00-0.45); EOSINOPHILS PERCENT MAN 1 % (0-6); LYMPHOCYTES ABSOLUTE MAN 2.07 K/uL (1.00-4.80); LYMPHOCYTES PERCENT MAN 11 % (24-44); MONOCYTES ABSOLUTE MAN 2.26 K/uL (0.00-0.80); MONOCYTES PERCENT MAN 12 % (0-8); SEG NEUTROPHILS ABSOLUTE MAN 14.85 K/uL (1.80-7.70); SEG NEUTROPHILS PERCENT MAN 79 % (41-71)
[2024-01-17 13:22] LABS: BASOPHILS PERCENT MAN 0 % (0-1)
[2024-01-17 14:00] LABS: A/G RATIO 0.9 (0.9-1.6); ALBUMIN 3.2 g/dL (3.4-5.0); BILIRUBIN TOTAL 0.2 mg/dL (0.2-1.0); CALCIUM 8.4 mg/dL (8.5-10.1); CARBON DIOXIDE,CO2 25.1 mmol/L (21.0-32.0); CREATININE 0.9 mg/dL (0.6-1.0); EST CRCL DRUG DOSING (CG) 62.67 mL/min; PROTEIN TOTAL,TP 6.6 g/dL (6.4-8.2)
[2024-01-17] MEDS: Albuterol/Ipratropium 3.0-0.5 MG/3 ML Neb Soln NEB STA (14:43)
[2024-01-18 07:02] VITALS: BP 120/71; PULSE 85
== END 2024-01-17 15:20 | disposition home or self-care (01) ==
LOC: MW.ED 11:26
DX: R06.02 Shortness of breath (principal); R55 Syncope and collapse; J45.909 Unspecified asthma, uncomplicated; E03.9 Hypothyroidism, unspecified; Z91.048 Other nonmedicinal substance allergy status; Z91.018 Allergy to other foods; Z88.8 Allergy status to other drugs, medicaments and biological substances; Z79.51 Long term (current) use of inhaled steroids; Z86.16 Personal history of COVID-19; Z75.8 Other problems related to medical facilities and other health care; Z79.899 Other long term (current) drug therapy
CPT/HCPCS: 0240U; 36415; 70450; 71046; 80053; 81003; 83690; 83735; 84484; 84703; 85025; 93005; 94640; 96360; 99285; J3490; J7030; 93010; 99283; J7620-GY

== ENCOUNTER 2024-04-26 06:53 | Emergency (ER) | payer OTHER ==
[2024-04-26 07:07] VITALS: BP 126/77; PULSE 68
== END 2024-04-26 07:45 | disposition home or self-care (01) ==
LOC: MW.ED 06:53
DX: A05.9 Bacterial foodborne intoxication, unspecified (principal); J45.909 Unspecified asthma, uncomplicated; E03.9 Hypothyroidism, unspecified; Z75.8 Other problems related to medical facilities and other health care; Z91.048 Other nonmedicinal substance allergy status; Z91.018 Allergy to other foods; Z91.010 Allergy to peanuts; Z88.8 Allergy status to other drugs, medicaments and biological substances; Z79.51 Long term (current) use of inhaled steroids; Z79.899 Other long term (current) drug therapy; Z90.49 Acquired absence of other specified parts of digestive tract
CPT/HCPCS: 99283

== ENCOUNTER 2024-05-11 10:06 | Emergency (ER) | payer OTHER ==
[2024-05-11 10:36] LABS: APPEARANCE,URINE CLEAR; BILIRUBIN,URINE NEGATIVE (NEGATIVE); COLOR,URINE YELLOW; GLUCOSE,URINE NEGATIVE (NEGATIVE); KETONES,URINE NEGATIVE (NEGATIVE); LEUKOCYTE ESTERASE,URINE NEGATIVE (NEGATIVE); NITRITE,URINE NEGATIVE (NEGATIVE); OCCULT BLOOD,URINE MODERATE (NEGATIVE); PROTEIN,URINE NEGATIVE (NEGATIVE); UROBILINOGEN,URINE 0.2 EU/dL (<2.0)
[2024-05-11 10:48] LABS: WBC,URINE 0-1 (0-5/HPF)
[2024-05-11 10:49] LABS: BACTERIA,URINE RARE (NEGATIVE); EPITHELIAL CELLS,URINE MODERATE (NONE-FEW)
[2024-05-11] MEDS: Ketorolac 30 MG/ML SDV IVPUSH STA (10:52)
[2024-05-11] MEDS: Sodium Chloride 0.9% 1,000 ML IV STA (10:53)
[2024-05-11 11:13] LABS: BASOPHILS ABSOLUTE AUTO 0.05 K/uL (0.00-0.20); BASOPHILS PERCENT AUTO 0.5 % (0.0-1.0); EOSINOPHILS ABSOLUTE AUTO 0.12 K/uL (0.00-0.45); EOSINOPHILS PERCENT AUTO 1.2 % (0.0-6.0); HEMATOCRIT 41.1 % (37.0-47.0); HEMOGLOBIN 14.2 g/dL (12.0-16.0); IMMATURE GRAN ABSOLUTE AUTO 0.05 K/uL (0.00-0.05); IMMATURE GRAN PERCENT AUTO 0.5 % (0.0-0.4); LYMPHOCYTES ABSOLUTE AUTO 1.92 K/uL (1.00-4.80); LYMPHOCYTES PERCENT AUTO 19.2 % (24.0-44.0); MEAN CORPUSCULAR HEMOGLOBIN 30.7 pg (28.0-32.0); MEAN CORPUSCULAR HGB CONC 34.5 g/dL (32.0-36.0); MEAN CORPUSCULAR VOLUME 88.8 fL (83.0-99.0); MEAN PLATELET VOLUME 11.1 fL (9.4-12.3); MONOCYTES ABSOLUTE AUTO 1.23 K/uL (0.00-0.80); MONOCYTES PERCENT AUTO 12.3 % (0.0-8.0); NEUTROPHILS ABSOLUTE AUTO 6.64 K/uL (1.80-7.70); NEUTROPHILS PERCENT AUTO 66.3 % (41.0-71.0); PLATELET COUNT,PLT 282 K/uL (150-400); RED BLOOD CELL COUNT 4.63 M/uL (4.10-5.30); WHITE BLOOD CELL COUNT,WBC 10.01 K/uL (3.9-11.3)
[2024-05-11 11:50] LABS: A/G RATIO 1.1 (0.9-1.6); ALBUMIN 3.8 g/dL (3.4-5.0); BILIRUBIN TOTAL 0.2 mg/dL (0.2-1.0); CALCIUM 9.3 mg/dL (8.5-10.1); CARBON DIOXIDE,CO2 26.9 mmol/L (21.0-32.0); CREATININE 0.8 mg/dL (0.6-1.0); EST CRCL DRUG DOSING (CG) 69.83 mL/min; PROTEIN TOTAL,TP 7.4 g/dL (6.4-8.2)
[2024-05-11 14:51] VITALS: BP 119/66; PULSE 64
== END 2024-05-11 14:49 | disposition home or self-care (01) ==
LOC: MW.ED 10:06
DX: R10.31 Right lower quadrant pain (principal); R35.0 Frequency of micturition; J45.909 Unspecified asthma, uncomplicated; E03.9 Hypothyroidism, unspecified; Z86.16 Personal history of COVID-19; Z90.49 Acquired absence of other specified parts of digestive tract; Z79.899 Other long term (current) drug therapy; Z91.048 Other nonmedicinal substance allergy status; Z91.018 Allergy to other foods; Z88.8 Allergy status to other drugs, medicaments and biological substances; Z91.010 Allergy to peanuts; Z75.8 Other problems related to medical facilities and other health care
CPT/HCPCS: 36415; 74176; 80053; 81001; 81025; 83690; 85025; 96361; 96374; 99284; J1885; J7030

== ENCOUNTER 2024-06-13 05:30 | Emergency (ER) | payer OTHER ==
[2024-06-13] MEDS: Ketorolac 30 MG/ML SDV IVPUSH ONE (06:03)
[2024-06-13 06:13] LABS: BASOPHILS ABSOLUTE AUTO 0.04 K/uL (0.00-0.20); BASOPHILS PERCENT AUTO 0.4 % (0.0-1.0); EOSINOPHILS ABSOLUTE AUTO 0.15 K/uL (0.00-0.45); EOSINOPHILS PERCENT AUTO 1.6 % (0.0-6.0); HEMATOCRIT 40.9 % (37.0-47.0); HEMOGLOBIN 14.3 g/dL (12.0-16.0); IMMATURE GRAN ABSOLUTE AUTO 0.03 K/uL (0.00-0.05); IMMATURE GRAN PERCENT AUTO 0.3 % (0.0-0.4); LYMPHOCYTES ABSOLUTE AUTO 2.25 K/uL (1.00-4.80); LYMPHOCYTES PERCENT AUTO 24.7 % (24.0-44.0); MEAN CORPUSCULAR HEMOGLOBIN 30.8 pg (28.0-32.0); MEAN CORPUSCULAR VOLUME 88.1 fL (83.0-99.0); MEAN PLATELET VOLUME 10.9 fL (9.4-12.3); MONOCYTES ABSOLUTE AUTO 1.13 K/uL (0.00-0.80); MONOCYTES PERCENT AUTO 12.4 % (0.0-8.0); NEUTROPHILS ABSOLUTE AUTO 5.52 K/uL (1.80-7.70); NEUTROPHILS PERCENT AUTO 60.6 % (41.0-71.0); PLATELET COUNT,PLT 278 K/uL (150-400); RED BLOOD CELL COUNT 4.64 M/uL (4.10-5.30); WHITE BLOOD CELL COUNT,WBC 9.12 K/uL (3.9-11.3)
[2024-06-13 06:24] LABS: APPEARANCE,URINE SLT CLOUDY; BILIRUBIN,URINE NEGATIVE (NEGATIVE); COLOR,URINE RED; GLUCOSE,URINE NEGATIVE (NEGATIVE); KETONES,URINE NEGATIVE (NEGATIVE); LEUKOCYTE ESTERASE,URINE NEGATIVE (NEGATIVE); NITRITE,URINE NEGATIVE (NEGATIVE); OCCULT BLOOD,URINE LARGE (NEGATIVE); PROTEIN,URINE TRACE mg/dL (NEGATIVE); UROBILINOGEN,URINE 0.2 EU/dL (<2.0)
[2024-06-13 06:26] LABS: BACTERIA,URINE FEW (NEGATIVE); MUCUS,URINE NOT SEEN (NONE-MOD); RBC,URINE TOO NUMEROUS TO CT (0-2/HPF); SQUAMOUS EPITHELIAL CELLS,UR FEW
[2024-06-13] MEDS: Iopamidol 755 MG/ML 500 ML Multipack Bottle IVPUSH STA (06:30)
[2024-06-13 06:33] LABS: ALBUMIN 3.6 g/dL (3.4-5.0); BILIRUBIN TOTAL 0.5 mg/dL (0.2-1.0); CALCIUM 8.8 mg/dL (8.5-10.1); CARBON DIOXIDE,CO2 24.5 mmol/L (21.0-32.0); CREATININE 0.8 mg/dL (0.6-1.0); EST CRCL DRUG DOSING (CG) 69.83 mL/min; PROTEIN TOTAL,TP 7.1 g/dL (6.4-8.2)
[2024-06-13] MEDS: Ondansetron 4 MG/2 ML SDV IVPUSH ONE (07:32)
[2024-06-13 07:43] VITALS: BP 122/78; PULSE 64
== END 2024-06-13 07:41 | disposition home or self-care (01) ==
LOC: MW.ED 05:30
DX: R10.31 Right lower quadrant pain (principal); Z91.018 Allergy to other foods; Z91.010 Allergy to peanuts; Z91.048 Other nonmedicinal substance allergy status; Z79.899 Other long term (current) drug therapy; Z90.49 Acquired absence of other specified parts of digestive tract
CPT/HCPCS: 36415; 74177; 80053; 81001; 81025; 85025; 96365; 96375; 99285; J1885; J2405; Q9967

== ENCOUNTER 2025-02-13 10:05 | Emergency (ER) | payer OTHER ==
[2025-02-13] MEDS ORDERED: Sodium Chloride 0.9% 10 ML Syringe FLUSH PRN (11:01)
[2025-02-13] MEDS ORDERED: Sodium Chloride 0.9% 2.5 ML Syringe FLUSH PRN (11:01)
[2025-02-13 11:08] LABS: BASOPHILS ABSOLUTE AUTO 0.05 K/uL (0.00-0.20); BASOPHILS PERCENT AUTO 0.5 % (0.0-1.0); EOSINOPHILS ABSOLUTE AUTO 0.06 K/uL (0.00-0.45); EOSINOPHILS PERCENT AUTO 0.6 % (0.0-6.0); IMMATURE GRAN ABSOLUTE AUTO 0.05 K/uL (0.00-0.05); IMMATURE GRAN PERCENT AUTO 0.5 % (0.0-0.4); LYMPHOCYTES ABSOLUTE AUTO 1.69 K/uL (1.00-4.80); LYMPHOCYTES PERCENT AUTO 17.7 % (24.0-44.0); MEAN CORPUSCULAR HEMOGLOBIN 31.4 pg (28.0-32.0); MEAN CORPUSCULAR HGB CONC 34.9 g/dL (32.0-36.0); MEAN CORPUSCULAR VOLUME 90.1 fL (83.0-99.0); MEAN PLATELET VOLUME 11.6 fL (9.4-12.3); MONOCYTES ABSOLUTE AUTO 1.13 K/uL (0.00-0.80); MONOCYTES PERCENT AUTO 11.8 % (0.0-8.0); NEUTROPHILS ABSOLUTE AUTO 6.58 K/uL (1.80-7.70); NEUTROPHILS PERCENT AUTO 68.9 % (41.0-71.0); PLATELET COUNT,PLT 369 K/uL (150-400); RED BLOOD CELL COUNT 4.77 M/uL (4.10-5.30); WHITE BLOOD CELL COUNT,WBC 9.56 K/uL (3.9-11.3)
[2025-02-13 11:28] LABS: ALBUMIN 3.5 g/dL (3.4-5.0); BILIRUBIN TOTAL 0.5 mg/dL (0.2-1.0); CALCIUM 9.1 mg/dL (8.5-10.1); CARBON DIOXIDE,CO2 25.4 mmol/L (21.0-32.0); CREATININE 0.9 mg/dL (0.6-1.0); EST CRCL DRUG DOSING (CG) 61.47 mL/min; PROTEIN TOTAL,TP 7.1 g/dL (6.4-8.2)
[2025-02-13] MEDS ORDERED: Naloxone 0.4 MG/ML SDV IVPUSH PRN (11:46)
[2025-02-13] MEDS: Morphine 2 MG/ML SYRINGE IVPUSH ONE (12:09)
[2025-02-13 15:54] VITALS: BP 120/73; PULSE 71
== END 2025-02-13 15:52 | disposition home or self-care (01) ==
LOC: MW.ED 10:05
DX: N83.202 Unspecified ovarian cyst, left side (principal); N83.201 Unspecified ovarian cyst, right side; O09.10 Supervision of pregnancy with history of ectopic pregnancy, unspecified trimester; J45.909 Unspecified asthma, uncomplicated; Z91.048 Other nonmedicinal substance allergy status; Z88.8 Allergy status to other drugs, medicaments and biological substances; Z91.018 Allergy to other foods; Z79.899 Other long term (current) drug therapy; Z90.49 Acquired absence of other specified parts of digestive tract
CPT/HCPCS: 36415; 76801; 76817; 80053; 84702; 85025; 96374; 99284; J2270